=== PATIENT | female | born 1990 | race Caucasian/White ===

== ENCOUNTER → 2017-06-28 | Outpatient (CLI) | payer OTHER ==
[~2017-06-28] MED LIST: BCPILLS PO; CHOL200010 PO; CLR10 PO; MULT-506 PO; OMEG10007 PO
--- NOTE | 2017-06-28 07:51 | DIAGNOSTIC IMAGING REPORT ---
R EXTREMITY NONVASCULAR LIMITED CLINICAL HISTORY: R59.0 Lymphadenopathy, inguinal pain. Adenopathy. TECHNIQUE: Ultrasound COMPARISON STUDY: 05/05/2016 FINDINGS: Unchanging benign-appearing adenopathy of the right inguinal region. No evidence for dominant nodule. All lymph nodes have benign characteristics. IMPRESSION: Several small benign right inguinal nodes unchanged from the prior exam. The above report was generated using voice recognition software. It may contain grammatical, syntax or spelling errors. Electronically signed by: Robert Deluca M.D. 06/28/2017 7:49 AM Dictated Date/Time: 06/28/2017 7:46 AM
== END | disposition home or self-care (01) ==
LOC: C.ULTR 07:06
PROVIDERS: ATTEND Internal Medicine
DX: R59.0 Localized enlarged lymph nodes (principal); Z13.220 Encounter for screening for lipoid disorders

== ENCOUNTER 2019-09-18 07:27 | Inpatient (IN) ==
[2019-09-18] MEDS ORDERED: OXYTOCIN 30 UNITS/500 ML BAG IV PRN ×3 (09:06→22:02)
[2019-09-18] MEDS: LACTATED RINGER'S 1,000 ML IV PRN ×3 (09:29→20:50)
[2019-09-18 09:31] LABS: Hematocrit (blood only) 37.2 % (37-47); Hemoglobin 13.4 g/dL (12.0-16.0); Mean Corpuscular Hemoglobin 31.5 pg (25-34); Mean Corpuscular Volume 87.3 fL (80-100); Mean Platelet Volume 8.5 fL (7.4-10.4); Platelet Count 255 K/uL (130-400); RDW Coefficient of Variation 13.2 % (11.5-14.5); RDW Standard Deviation 42.2 fL (36.4-46.3); Red Blood Count 4.26 M/uL (4.2-5.4); White Blood Count 8.91 K/uL (4.8-10.8)
--- NOTE | 2019-09-18 09:44 | Obstetrical Progress Note ---
Date of Service September 18, 2019 Assessment & Plan Admission and Anticipated Discharge Date Admission Date: September 18, 2019 Subjective Met pt and reviewed plan Louise bulb placed with no difficulty staring low dose Pitocin pt agrees with plan Results & Data ([facility]) Vital Signs (Past 12 Hours) Vital Signs Temp Pulse Resp BP Pulse Ox 09/18/19 09:02 80 97 09/18/19 08:57 84 99 09/18/19 07:54 36.7 C 18 09/18/19 07:44 90 124/78
[2019-09-18] MEDS ORDERED: ACETAMINOPHEN SOLN 500 MG/15.62 ML UDP PO ONE (13:48)
[2019-09-18] MEDS ORDERED: ACETAMINOPHEN 500 MG TAB ONE (13:50)
[2019-09-18] MEDS ORDERED: BUTORPHANOL TARTRATE 1 MG/ML VIAL IV PRN (17:16)
[2019-09-18] MEDS ORDERED: fentaNYL 2MCG/ML ROPIV 1.25MG/ML 100 ML BAG EPI PRN (20:03)
[2019-09-18] MEDS ORDERED: fentaNYL citrate 100 MCG/2 ML VIAL ONE (20:03)
[2019-09-18] MEDS ORDERED: ONDANSETRON INJ 2 MG/ML 2 ML VIAL IV PRN (20:03)
[2019-09-18] MEDS ORDERED: NALBUPHINE HCL INJ 10 MG/ML AMP IV PRN (20:03)
[2019-09-18] MEDS ORDERED: NALOXONE HCL 0.4 MG/1 ML VIAL/CARP IV PRN (20:03)
[2019-09-18] MEDS ORDERED: DiphenhydrAMINE HCL 50 MG/ML VIAL IV PRN (20:03)
[2019-09-18] MEDS ORDERED: BUPIVACAINE 0.25% 30 ML VIAL ONE (20:03)
[2019-09-18] MEDS ORDERED: NALOXONE HCL 1 MG in SODIUM CHLORIDE 0.9% 1000ML 1,000 ML IV PRN (20:03)
[2019-09-18] MEDS ORDERED: ePHEDrine sulfate 50 MG/ML AMP ONE (20:03)
[2019-09-18] MEDS ORDERED: ePHEDrine sulfate 50 MG/ML AMP IV PRN (20:03)
[2019-09-18] MEDS ORDERED: fentaNYL 2MCG/ML ROPIV 1.25MG/ML 100 ML BAG EPI ONE (20:04)
--- NOTE | 2019-09-18 20:07 | Anesthesiology Consultation ---
Date of Service September 18, 2019 The patient's baby has Trisomy 21. Assessment & Plan Chart Review Chart Review: Patient NOT seen in Pre Admission Testing and Acceptable Risk for Labor Epidural Consults Requested none ASA ASA2 Proposed Anesthesia Anesthesia Type: Labor Epidural and CSE Risk / Benefits Reviewed With: PT / POA / Parent / Guardian, Accepts Plan and Informed Consent Obtained History Height/Weight Height: 5 ft 8 in Weight: 80.286 kg Allergies Allergy/AdvReac Type Severity Reaction Status Date / Time No Known Allergies Allergy Verified 08/17/19 15:01 Medications Home Medications Medication Instructions Recorded Confirmed Last Taken PNV cmb#95-ferrous fumarate-FA 1 tab PO DAILY 09/17/19 09/17/19 Unknown [] cetirizine [Zyrtec] 10 mg PO DAILY 09/17/19 09/17/19 Unknown Active Medications Generic Name Dose Route Start Last Admin Trade Name Freq PRN Reason Stop Dose Admin Butorphanol Tartrate 1 mg 09/18/19 17:16 09/18/19 17:36 Stadol IV 10/18/19 17:15 1 mg Q4 PRN Administration Pain Lactated Ringer's 1,000 mls @ 125 mls/hr 09/18/19 09:06 09/18/19 19:17 Lr IV 09/20/19 09:05 125 mls/hr .Q8H PRN Infusion L&D Protocol Protocol Oxytocin 30 units in 500 mls @ 2 mls/hr 09/18/19 09:09 09/18/19 19:17 Pitocin IV 10/18/19 09:08 0.12 units/hr .Q24H PRN 2 mls/hr Labor Induction/Augmentation Titration Protocol 0.12 UNITS/HR NPO Date Last Intake of Fluids: 09/18/19 Time Last Intake of Fluids: 18:00 Date Last Intake of Solids: 09/18/19 Time Last Intake of Solids: 15:00 Past Medical History Medical History Migraine Exercise / Class Metabolic Activity II 4-5 Yardwork/Stairs/Walk up hill Past Family History Family History Aunt Cancer Mother Hypertension Sister Hypertension Past Anesthesia History No Hx of Anesthesia Complications and No Family Hx of Anesthesia Complications History of PONV No Hx of PONV and No Hx of Motion Sickness Social History Smoking Status: Never smoker Hx Alcohol Use: No Hx Substance Use: No Review of Systems no chest pain or sob Physical Exam Vital Signs Last Vital Signs Temp 37.1 C 09/18/19 19:13 Pulse 74 09/18/19 19:13 Resp 18 09/18/19 19:13 BP 128/79 09/18/19 19:13 Pulse Ox 97 09/18/19 09:02 ENMT Mouth: no TMJ abnormality Thyromental Distance: > or= 3.5 Finger Breadths Mallampati Class: II Neck normal visual inspection Respiratory normal respiratory effort Auscultation: lungs clear to auscultation bilaterally Cardiovascular Rate/Rhythm: regular rate and regular rhythm Musculoskeletal Spine: normal cervical ROM Neurologic moves all extremities Psychiatric Orientation: alert and oriented x 3 Testing Laboratory Results 09/18/19 09:17
--- NOTE | 2019-09-18 21:28 | Obstetrical Progress Note ---
Date of Service September 18, 2019 Assessment & Plan Admission and Anticipated Discharge Date Admission Date: September 18, 2019 Subjective Pt doing well Epidural analgesia on board VE; 50/-2 AROM-clear will start Pitocin augmentation Results & Data ([facility]) Vital Signs (Past 12 Hours) Vital Signs Temp Pulse Resp BP Pulse Ox 09/18/19 21:25 88 98 09/18/19 21:21 86 101/62 93 09/18/19 21:20 73 96 09/18/19 21:17 75 100/57 L 09/18/19 21:15 86 96 09/18/19 21:10 93 H 96 09/18/19 21:05 74 96 09/18/19 21:04 73 103/59 L 09/18/19 21:00 83 96 09/18/19 20:55 77 97 09/18/19 20:50 80 97 09/18/19 20:49 85 18 105/55 L 09/18/19 20:45 74 18 107/55 L 98 09/18/19 20:40 77 18 107/58 L 97 09/18/19 20:35 77 97 09/18/19 20:34 91 H 99/60 L 09/18/19 20:31 81 98/57 L 09/18/19 20:30 86 97 09/18/19 20:28 92 H 18 106/63 09/18/19 20:25 87 18 104/64 98 09/18/19 20:22 78 18 124/72 09/18/19 20:11 99 H 128/91 09/18/19 19:13 37.1 C 74 18 128/79 09/18/19 18:34 76 120/69 09/18/19 17:41 78 125/82 09/18/19 16:26 68 20 123/79 09/18/19 14:45 37.3 C 70 20 128/72 09/18/19 13:52 78 18 128/72 09/18/19 11:57 36.7 C 78 18 127/81 09/18/19 11:04 75 135/84
[2019-09-19] MEDS: LACTATED RINGER'S 1,000 ML IV PRN (01:55)
[2019-09-19] MEDS ORDERED: OXYTOCIN 30 UNITS/500 ML BAG IV PRN ×2 (04:11→08:40)
[2019-09-19] MEDS: ACETAMINOPHEN 325 MG TAB PO PRN ×2 (05:23→23:00)
[2019-09-19] MEDS ORDERED: METHYLERGONOVINE MALEATE 0.2 MG/ML AMP ONE (08:30)
[2019-09-19] MEDS ORDERED: bisacodyL 10 MG SUPP PR PRN (08:40)
[2019-09-19] MEDS ORDERED: HYDROCORTISONE ACETATE 25 MG SUPP PR PRN (08:40)
[2019-09-19] MEDS ORDERED: miSOPROStoL 200 MCG TAB PR ONE (08:40)
[2019-09-19] MEDS ORDERED: BENZOCAINE 20% AER SPR 82.5 GM CAN EXT PRN (08:40)
[2019-09-19] MEDS ORDERED: DIPHTHERIA/TETANUS/PERTUSSIS 0.5 ML SYR/VIAL IM ONE (08:40)
[2019-09-19] MEDS ORDERED: ACETAMINOPHEN 325 MG TAB PO PRN (08:40)
[2019-09-19] MEDS ORDERED: METHYLERGONOVINE MALEATE 0.2 MG/ML AMP IM ONE (08:40)
--- NOTE | 2019-09-19 08:52 | Delivery Summary ---
DATE OF OPERATION: 09/19/2019 The patient delivered an demised in cephalic presentation. There was no nuchal cord. Infant was delivered. Cord was clamped and cut. This infant was known to have trisomy 18. Cord blood could not be obtained. Placenta was spontaneously delivered and sent to pathology for pathological analysis. Inspection of the perineum showed a first-degree laceration which was repaired with 2-0 Vicryl. The rest of the perineum and vaginal exam is unremarkable. All instruments were removed from the vagina and accounted for x2 including sponges, needles and retractors. Mother is doing well in recovery. I attest to the content of the Intraoperative Record and any orders documented therein. Any exceptions are noted below. MTDD
[2019-09-19] MEDS ORDERED: miSOPROStoL 200 MCG TAB ONE (11:36)
--- NOTE | 2019-09-19 12:36 | Anesthesia Procedure Note ---
Date of Service September 19, 2019 Anesthesia Post Epidural Note Vital Signs Vital Signs: Temp Pulse Resp BP Pulse Ox 99.1 F 89 20 121/75 99 09/19/19 07:30 09/19/19 12:00 09/19/19 08:49 09/19/19 12:00 09/19/19 08:20 Pain Intensity Bilateral Abdomen: Pain Intensity: 0 Notes Mental Status: alert / awake / arousable and participated in evaluation Nausea / Vomiting: adequately controlled Pain: adequately controlled Airway Patency, RR, SpO2: stable & adequate BP & HR: stable & adequate Hydration State: stable & adequate Neuraxial Anesthesia: was administered and sensory block is resolving Anesthetic Complications: no major complications apparent and Pt Satisfied with anesthetic care Epidural: Removed without complications and With tip intact
[2019-09-19] MEDS: IBUPROFEN 600 MG TAB PO PRN ×2 (16:39→20:10)
[2019-09-19] MEDS: SUPERCREAM 0.870% 15 GM JAR EXT PRN (16:39)
[2019-09-19] MEDS: CETIRIZINE HCL 10 MG TABLET PO SCH (19:19)
[2019-09-19] MEDS: DOCUSATE SODIUM 100 MG CAP PO SCH (21:14)
[2019-09-19] MEDS ORDERED: OXYCODONE/ACETAMINOPHEN 5mg/325mg TAB PO PRN (21:30)
[2019-09-20] MEDS: IBUPROFEN 600 MG TAB PO PRN ×3 (00:10→11:02)
[2019-09-20] MEDS: SUPERCREAM 0.870% 15 GM JAR EXT PRN (03:46)
[2019-09-20] MEDS: ACETAMINOPHEN 325 MG TAB PO PRN (03:46)
[2019-09-20 06:04] LABS: Hematocrit (blood only) 36.5 % (37-47); Hemoglobin 12.7 g/dL (12.0-16.0); Mean Corpuscular Hemoglobin 30.6 pg (25-34); Mean Corpuscular Hgb Conc 34.8 g/dL (32-36); Mean Platelet Volume 8.5 fL (7.4-10.4); Platelet Count 199 K/uL (130-400); RDW Coefficient of Variation 13.1 % (11.5-14.5); RDW Standard Deviation 42.4 fL (36.4-46.3); Red Blood Count 4.15 M/uL (4.2-5.4); White Blood Count 11.35 K/uL (4.8-10.8)
[2019-09-20] MEDS ORDERED: PRENATAL VITAMIN 1 TAB PO SCH (08:00)
[2019-09-20] MEDS ORDERED: FERROUS SULFATE 325 MG TAB PO SCH (08:00)
[2019-09-20] MEDS: DOCUSATE SODIUM 100 MG CAP PO SCH (08:32)
[2019-09-20] MEDS: CETIRIZINE HCL 10 MG TABLET PO SCH (08:32)
--- NOTE | 2019-09-20 09:18 | Obstetrical Progress Note ---
Date of Service September 20, 2019 Assessment & Plan Admission and Anticipated Discharge Date Admission Date: September 18, 2019 Subjective doing well out of bed tolerating diet minimal cramps in good spirits Physical Exam Constitutional: WD/WN, vitals as above comfortable Results & Data ([facility]) Vital Signs (Past 12 Hours) Vital Signs Temp Pulse Pulse Resp BP BP 09/20/19 07:13 36.9 C 90 20 117/60 09/19/19 23:02 36.5 C 63 106/64
--- NOTE | 2019-09-20 09:20 | Obstetrical Progress Note ---
Date of Service September 20, 2019 Assessment & Plan Admission and Anticipated Discharge Date Admission Date: September 18, 2019 Physical Exam Constitutional: WD/WN, vitals as above comfortable abdomen soft and non- tender Fundus firm neg edema neg Anai's for discharge home Results & Data ([facility]) Vital Signs (Past 12 Hours) Vital Signs Temp Pulse Pulse Resp BP BP 09/20/19 07:13 36.9 C 90 20 117/60 09/19/19 23:02 36.5 C 63 106/64 Laboratory Results Laboratory Results - last 72 hr 09/18/19 09/20/19 09:17 05:54 WBC 8.91 11.35 H RBC 4.26 4.15 L Hgb 13.4 12.7 Hct 37.2 36.5 L MCV 87.3 88.0 MCH 31.5 30.6 MCHC 36.0 34.8 RDW Std Deviation 42.2 42.4 RDW Coeff of Shiv 13.2 13.1 Plt Count 255 199 MPV 8.5 8.5
--- NOTE | 2019-09-20 09:52 | Anesthesiology Progress Note ---
Date of Service [facility] 2019 Asked to see patient for some back pain - had epidural for delivery of a stillborn - site clear, no bruising or swelling, she says its feel some better already - likely just sore from needle - no radicular pain or other symptoms. She seems fine with it, and I told her to let us know if it worsens or changes. Anesthesia Post Procedure Vital Signs Vital Signs: Temp Pulse Pulse Resp BP BP 09/20/19 07:13 36.9 C 90 20 117/60 09/19/19 23:02 36.5 C 63 106/64 09/19/19 19:39 37.1 C 80 20 124/71 09/19/19 15:49 37.0 C 75 20 134/82 09/19/19 12:00 37.3 C 89 18 121/75 09/19/19 10:49 92 H 136/80 09/19/19 10:34 85 122/75 09/19/19 10:20 80 131/71 09/19/19 10:04 87 136/89 09/19/19 09:49 83 124/79 Pain Intensity Bilateral Abdomen: Pain Intensity: 5 Transfer of Care Handoff Completed per policy Notes Mental Status: alert / awake / arousable Patient Amnestic to Procedure: Yes Nausea / Vomiting: adequately controlled Pain: adequately controlled Airway Patency, RR, SpO2: stable & adequate BP & HR: stable & adequate Hydration State: stable & adequate Neuraxial Anesthesia: was administered and sensory block is resolving Anesthetic Complications: no major complications apparent
[2019-09-20] MEDS ORDERED: bisacodyL 5 MG TABEC PO SCH (20:00)
--- NOTE | 2019-09-21 16:47 | Coding Query ---
CODING QUERY To promote full compliance with coding requirements relating to patient care, provider participation is requested in all cases of medical record coder uncertainty. Please assist us with the question(s) below: Coding Question(s): PLEASE LIST BELOW THE DIAGNOSIS(ES) ASSOCIATED WITH THE PATIENT'S ADMISSION AND INDUCTION OF LABOR. THANK YOU. Physician's Response(s): Diagnosis: 1. at 35+week 2. Trisomy 18 fetus 3. Polyhydramnios Thank you Cristina Shipley Principal Diagnosis: "that condition established after study, to be chiefly responsible for occasioning the admission of the patient to the hospital for care." Co-Existing Principal Diagnosis: "when two or more diagnoses equally meet the criteria for principal diagnosis as determined by the circumstances of admission, diagnostic work up, and/or therapy provided, and the Alphabetic Index, Tabular List, or another coding guideline does not provide sequencing direction, any one of the diagnoses may be sequenced first." "When the physician has documented what appears to be a current diagnosis in the body of the record, but has not included the diagnosis in the final diagnostic statement, the physician should be asked whether the diagnosis should be added." ([facility] 2 QTR90. p3-4) CAMRYN
--- NOTE | 2019-09-30 00:48 | Discharge Summary ---
CHIEF COMPLAINT: 1. at 35 weeks. 2. Trisomy 18 . 3. Polyhydramnios. HISTORY OF PRESENT ILLNESS: This is a 29-year-old G1, P0 who is , due date was 10/20/2019. was complicated by trisomy 18 fetus, which is not compatible with life. The patient's was also complicated with polyhydramnios. Decision was made to induce patient. The patient agreed to be induced at 35 weeks. She presented to labor and delivery where she underwent induction. Induction included a Louise bulb and Pitocin. She had artificial rupture of membranes on 09/18/2019 at about 2100 hours and delivered on 09/19/2019 at about 0800 hours. 's at delivery was 0, 0. The patient was discharged home on 09/20/2019 in stable condition. PAST MEDICAL HISTORY: Migraines. PAST SURGICAL HISTORY: None. SOCIAL HISTORY: The patient is , lives with spouse. Denies tobacco, drug or alcohol use. FAMILY HISTORY: Noncontributory. ALLERGIES: No known drug allergies. REVIEW OF SYSTEMS: Negative except as dictated in the HPI. PHYSICAL EXAMINATION: GENERAL: Well-developed, well-nourished white female in no acute distress. VITAL SIGNS: On 09/20/2019 showed blood pressure of 117/60, pulse of 90, respiration of 20, temperature of 36.9. HEART: S1, S2, regular rhythm and rate. LUNGS: Clear to auscultation bilaterally. ABDOMEN: Nontender, nondistended. PELVIC: Decreased lochia. OPERATION: Vaginal delivery, status post trisomy 18. DISCHARGE ____: Post vaginal delivery. PLAN ON DISCHARGE: The patient is discharged home with instructions regarding activity, diet, followup appointment, and medication.
== END 2019-09-20 11:50 | disposition home or self-care (01) | DRG 806 ==
LOC: 4S1 07:27 → 4N 09-19 23:32

== ENCOUNTER 2021-02-24 07:28 | Inpatient (IN) ==
[2021-02-24] MEDS ORDERED: OXYTOCIN 30 UNITS/500 ML BAG IV PRN (08:50)
[2021-02-24] MEDS ORDERED: miSOPROStoL 50 MCG TAB PO ONE (08:50)
[2021-02-24 09:15] LABS: Hematocrit (blood only) 37.8 % (37-47); Hemoglobin 13.3 g/dL (12.0-16.0); Mean Corpuscular Hemoglobin 31.6 pg (25-34); Mean Corpuscular Hgb Conc 35.2 g/dL (32-36); Mean Corpuscular Volume 89.8 fL (80-100); Mean Platelet Volume 8.9 fL (7.4-10.4); Platelet Count 210 K/uL (130-400); RDW Standard Deviation 42.3 fL (36.4-46.3); Red Blood Count 4.21 M/uL (4.2-5.4)
--- NOTE | 2021-02-24 10:02 | Obstetrical Progress Note ---
Date of Service February 24, 2021 Assessment & Plan Admission and Anticipated Discharge Date Admission Date: February 24, 2021 Subjective Met pt and reviewed PNC dosing well Induction for impending macrosomia Bedside sonio; Vt FHR; CAT1 CTx .Minimal VE; /-3 EFW; 7-8lbs cervidil x1 Results & Data ([facility]) Vital Signs (Past 12 Hours) Vital Signs Temp Pulse Resp BP 02/24/21 08:01 36.8 C 111 H 18 139/80 02/24/21 07:53 18 02/24/21 07:52 111 H 139/80
[2021-02-24] MEDS: ACETAMINOPHEN 500 MG TAB PO PRN ×3 (19:54→23:14)
[2021-02-24] MEDS ORDERED: DINOPROSTONE 10 MG INSERT PV ONE (20:30)
--- NOTE | 2021-02-24 21:42 | Obstetrical Progress Note ---
Date of Service February 24, 2021 Assessment & Plan Admission and Anticipated Discharge Date Admission Date: February 24, 2021 Subjective Pt doing well Received 1 dose Cytotec FHR; CAT1 Ctx 2-5mins VE; //-3 Cervidil placed in vagina Results & Data ([facility]) Vital Signs (Past 12 Hours) Vital Signs Temp Pulse Resp BP 02/24/21 21:21 75 124/74 02/24/21 19:34 36.8 C 18 02/24/21 19:33 70 122/68 02/24/21 18:50 18 02/24/21 16:36 73 123/75 02/24/21 16:34 37.0 C 18 02/24/21 11:30 70 113/67 02/24/21 11:28 18 02/24/21 10:40 18
[2021-02-24] MEDS ORDERED: BUTORPHANOL TARTRATE 1 MG/ML VIAL IV PRN (21:54)
[2021-02-25] MEDS ORDERED: ONDANSETRON INJ 2 MG/ML 2 ML VIAL IV PRN ×2 (08:27→16:52)
[2021-02-25] MEDS ORDERED: ONDANSETRON INJ 2 MG/ML 2 ML VIAL ONE (08:29)
--- NOTE | 2021-02-25 09:37 | Labor Progress Brief Note ---
Date of Service February 25, 2021 Assessment & Plan Admission and Anticipated Discharge Date Admission Date: February 24, 2021 Physical Exam Genitourinary: OB Exam Abdomen: + fundal height Manual OB Exam: + cervical dilation 1 cm and 2 cm, + cervical effacement 50% and + station high Cervidil removedWill walk and plan for Cytotec Results & Data ([facility]) Vital Signs (Past 12 Hours) Vital Signs Temp Pulse Resp BP Pulse Ox 02/25/21 08:45 36.7 C 20 02/25/21 08:41 73 119/78 02/25/21 01:26 69 96 02/25/21 01:21 64 97 02/25/21 01:16 60 97 02/25/21 01:11 68 97 02/25/21 01:06 71 97 02/25/21 01:01 79 98 02/25/21 00:56 61 96 02/25/21 00:51 62 96 02/25/21 00:46 63 96 02/25/21 00:41 66 96 02/25/21 00:36 65 96 02/25/21 00:31 66 96 02/25/21 00:26 65 96 02/25/21 00:21 62 96 02/25/21 00:16 73 96 02/25/21 00:11 61 99 02/25/21 00:06 60 98 02/25/21 00:02 60 108/57 L 02/25/21 00:01 62 99
--- NOTE | 2021-02-25 14:24 | Labor Progress Brief Note ---
Date of Service February 25, 2021 Assessment & Plan Admission and Anticipated Discharge Date Admission Date: February 24, 2021 Physical Exam Genitourinary: OB Exam Monitor Tracing: + external FHT monitor used, + external uterine monitor used, + category I and + normal FHT variability AROM with Amni-hook clear fluid Results & Data ([facility]) Vital Signs (Past 12 Hours) Vital Signs Temp Pulse Resp BP 02/25/21 14:17 77 115/72 02/25/21 11:30 36.7 C 66 20 118/74 02/25/21 08:45 36.7 C 20 02/25/21 08:41 73 119/78
[2021-02-25] MEDS: LACTATED RINGER'S 1,000 ML IV PRN ×2 (15:13→19:45)
[2021-02-25] MEDS ORDERED: fentaNYL 2MCG/ML ROPIVACAINE 1.25MG/ML 100 ML BAG EPI ONE (15:20)
[2021-02-25] MEDS ORDERED: ePHEDrine sulfate 50 MG/ML AMP ONE (15:20)
[2021-02-25] MEDS ORDERED: fentaNYL citrate 100 MCG/2 ML VIAL ONE (15:20)
[2021-02-25] MEDS ORDERED: SODIUM CHLORIDE 0.9% INJ 10 ML VIAL ONE (15:20)
[2021-02-25] MEDS ORDERED: BUPIVACAINE 0.25% 30 ML VIAL ONE (15:20)
--- NOTE | 2021-02-25 16:02 | Anesthesiology Consultation ---
Date of Service February 25, 2021 Assessment & Plan (1) Encounter for pre-operative examination: Chart Review Chart Review: Acceptable Risk for Surgery and Patient NOT seen in Pre Admission Testing Consults Requested none History Height/Weight Height: 5 ft 8 in Weight: 80.739 kg Allergies Allergy/AdvReac Type Severity Reaction Status Date / Time No Known Allergies Allergy Verified 02/24/21 07:59 Medications Home Medications Medication Instructions Recorded Confirmed Last Taken vit no.95-ferrous 1 tab PO DAILY 09/17/19 02/24/21 02/23/21 06:00 fumarate 28 mg-folic acid 800 mcg tablet () docusate sodium 100 mg capsule 100 mg PO DAILY 02/24/21 02/24/21 02/23/21 06:00 (Stool Softener) loratadine 10 mg tablet (Claritin) 10 mg PO DAILY 02/24/21 02/24/21 02/23/21 06:00 Active Medications Generic Name Dose Route Start Last Admin Trade Name Freq PRN Reason Stop Dose Admin Acetaminophen 1,000 mg 02/24/21 22:54 02/24/21 23:14 Acetaminophen 500 Mg Tab PO 03/26/21 22:53 1,000 mg Q6H PRN Administration Pain Butorphanol Tartrate 1 mg 02/24/21 21:54 02/25/21 00:10 Butorphanol Tartrate 1 Mg/Ml Vial IV 03/26/21 21:53 1 mg Q4 PRN Administration Pain Lactated Ringer's 1,000 mls @ 125 mls/hr 02/24/21 08:50 02/25/21 15:50 Lr IV 02/26/21 08:49 125 mls/hr .Q8H PRN Infusion L&D Protocol Protocol Past Medical History Medical History (Updated 02/25/21 @ 16:02 by Cristina Nice MD) Migraine Past Family History Family History Aunt Cancer Mother Hypertension Sister Hypertension Social History Smoking Status: Never smoker Hx Alcohol Use: No Hx Substance Use: No Physical Exam Vital Signs Last Vital Signs Temp 36.9 C 02/25/21 14:17 Pulse 77 02/25/21 14:17 Resp 20 02/25/21 14:17 BP 115/72 07/27/21 14:17 Pulse Ox 96 02/25/21 01:26 Testing Laboratory Results 02/24/21 08:58
[2021-02-25] MEDS ORDERED: OXYTOCIN 30 UNITS/500 ML BAG IV PRN (16:24)
[2021-02-25] MEDS ORDERED: diphenhydrAMINE 50 MG/ML VIAL IV PRN (16:52)
[2021-02-25] MEDS ORDERED: NALOXONE HCL 0.4 MG/1 ML VIAL/CARP IV PRN (16:52)
[2021-02-25] MEDS ORDERED: fentaNYL 2MCG/ML ROPIVACAINE 1.25MG/ML 100 ML BAG EPI PRN (16:52)
[2021-02-25] MEDS ORDERED: NALOXONE HCL 1 MG in SODIUM CHLORIDE 0.9% 1000ML 1,000 ML IV PRN (16:52)
[2021-02-25] MEDS ORDERED: ePHEDrine sulfate 50 MG/ML AMP IV PRN (16:52)
[2021-02-25] MEDS ORDERED: NALBUPHINE HCL INJ 10 MG/ML AMP IV PRN (16:52)
--- NOTE | 2021-02-25 18:13 | Labor Progress Brief Note ---
Date of Service February 25, 2021 Assessment & Plan Admission and Anticipated Discharge Date Admission Date: February 24, 2021 Physical Exam Genitourinary: Manual OB Exam: + cervical dilation 4 cm and 5 cm, + cervical effacement 70%, + station -1 and + amniotic fluid clear FHT Cat 1 continue Oxytocin Results & Data ([facility]) Vital Signs (Past 12 Hours) Vital Signs Temp Pulse Resp BP Pulse Ox 02/25/21 18:08 83 100 02/25/21 18:03 69 95 02/25/21 17:58 71 95 02/25/21 17:53 76 96 02/25/21 17:49 78 116/70 02/25/21 17:48 75 95 02/25/21 17:46 20 02/25/21 17:44 71 115/68 02/25/21 17:43 73 95 02/25/21 17:40 63 114/68 02/25/21 17:38 68 95 02/25/21 17:35 65 118/65 02/25/21 17:33 63 95 02/25/21 17:29 72 116/69 02/25/21 17:28 76 95 02/25/21 17:24 67 115/69 02/25/21 17:23 75 97 02/25/21 17:19 73 120/72 02/25/21 17:18 76 97 02/25/21 17:16 20 02/25/21 17:14 76 118/69 02/25/21 17:13 73 96 02/25/21 17:09 69 117/71 02/25/21 17:08 71 95 02/25/21 17:05 20 02/25/21 17:04 70 119/76 02/25/21 17:03 70 96 02/25/21 16:59 78 123/72 02/25/21 16:58 76 96 02/25/21 16:53 73 125/70 95 02/25/21 16:51 70 20 123/75 02/25/21 16:49 74 126/73 94 02/25/21 16:48 77 95 02/25/21 16:47 74 120/78 02/25/21 16:45 79 118/80 02/25/21 16:43 74 120/72 95 02/25/21 16:41 81 123/70 02/25/21 16:40 75 94 02/25/21 16:39 85 117/75 02/25/21 16:38 76 96 02/25/21 16:37 36.9 C 73 20 127/85 02/25/21 16:35 71 134/75 02/25/21 16:33 76 134/79 96 02/25/21 16:31 89 111/81 02/25/21 16:28 78 96 02/25/21 16:23 83 97 02/25/21 16:18 89 99 02/25/21 16:13 80 132/78 98 02/25/21 14:17 36.9 C 77 20 115/72 02/25/21 11:30 36.7 C 66 20 118/74 02/25/21 08:45 36.7 C 20 02/25/21 08:41 73 119/78
[2021-02-25] MEDS ORDERED: NURSING L&D Epidural Breakthrough Pain Update ONE (23:04)
[2021-02-26] MEDS ORDERED: SUPERCREAM 0.870% 15 GM JAR EXT PRN (00:11)
[2021-02-26] MEDS ORDERED: OXYTOCIN 30 UNITS/500 ML BAG IV PRN (00:11)
[2021-02-26] MEDS ORDERED: DIPHTHERIA/TETANUS/PERTUSSIS 0.5 ML SYR/VIAL IM ONE (00:11)
[2021-02-26] MEDS ORDERED: HYDROCORTISONE ACETATE 25 MG SUPP PR PRN (00:11)
[2021-02-26] MEDS ORDERED: BENZOCAINE 20% AER SPR 82.5 GM CAN EXT PRN (00:11)
[2021-02-26] MEDS ORDERED: bisacodyL 10 MG SUPP PR PRN (00:11)
--- NOTE | 2021-02-26 00:15 | Delivery Summary ---
Vaginal Delivery Summary Date of Service February 26, 2021 Vaginal Delivery Summary Delivery Note live male over intact perineum with delayed cord clamping and Apgars 9/9 weight pending. Cord blood obtained followed by spontaneous delivery of intact placenta. No tears. EBL 200 ml. Final sponge and instrument count are correct. Mom and baby stable.
[2021-02-26] MEDS: ACETAMINOPHEN 500 MG TAB PO PRN (00:17)
[2021-02-26] MEDS: IBUPROFEN 600 MG TAB PO PRN ×3 (06:46→20:51)
--- NOTE | 2021-02-26 07:52 | Obstetrical Progress Note ---
Date of Service February 26, 2021 Assessment & Plan Admission and Anticipated Discharge Date Admission Date: February 24, 2021 Subjective Patient is seen and examined. She feels well, no complaints. Ambulating without dizziness Voiding without difficulty Tolerating regular diet with out N&V Bleeding is minimal No fever/ chills/ CP/ SOB/ N&V/ Leg pain Breast feeding without problems Lab Results 02/24/21 02/24/21 02/24/21 Range/Units 07:47 07:47 08:58 WBC 8.70 (4.8-10.8) K/uL RBC 4.21 (4.2-5.4) M/uL Hgb 13.3 (12.0-16.0) g/dL Hct 37.8 (37-47) % MCV 89.8 (80-100) fL MCH 31.6 (25-34) pg MCHC 35.2 (32-36) g/dL RDW Std Deviation 42.3 (36.4-46.3) fL RDW Coeff of Shiv 13.0 (11.5-14.5) % Plt Count 210 (130-400) K/uL MPV 8.9 (7.4-10.4) fL COVID-19 [facility] SARS-CoV-2, RNA, NAAT NEGATIVE (NEGATIVE) Vital Signs Temp Pulse Pulse Resp BP BP Pulse Ox 02/26/21 05:05 62 114/73 02/26/21 02:55 36.7 C 81 20 113/72 96 02/26/21 02:12 93 H 110/75 02/26/21 01:57 90 105/75 02/26/21 01:23 75 124/67 02/26/21 01:08 70 122/68 02/26/21 00:53 73 130/73 02/26/21 00:38 73 137/83 02/26/21 00:23 76 126/68 02/26/21 00:03 91 H 100 02/26/21 00:01 91 H 92 02/25/21 23:58 80 96 02/25/21 23:55 92 H 91 02/25/21 23:53 106 H 130/85 95 02/25/21 23:48 95 H 88 L 02/25/21 23:46 95 H 81 L 02/25/21 23:43 87 95 07/27/21 23:38 77 128/74 97 02/25/21 23:33 72 95 02/25/21 23:28 73 96 02/25/21 23:24 67 115/68 02/25/21 23:23 65 96 02/25/21 23:18 67 94 02/25/21 23:13 69 93 02/25/21 23:10 36.9 C 74 18 125/65 96 02/25/21 23:08 74 125/65 96 02/25/21 23:03 76 98 02/25/21 22:58 70 96 02/25/21 22:53 70 119/66 96 02/25/21 22:48 70 96 02/25/21 22:43 67 95 02/25/21 22:38 70 117/63 96 02/25/21 22:33 67 97 02/25/21 22:28 75 96 02/25/21 22:23 68 113/61 96 02/25/21 22:18 74 95 02/25/21 22:13 66 95 02/25/21 22:08 72 103/57 L 95 02/25/21 22:03 72 95 02/25/21 21:58 69 95 02/25/21 21:53 76 91/52 L 96 02/25/21 21:48 69 93 02/25/21 21:43 81 95 02/25/21 21:38 72 110/57 L 95 02/25/21 21:33 72 96 02/25/21 21:28 78 95 02/25/21 21:23 79 106/58 L 96 02/25/21 21:20 36.9 C 02/25/21 21:18 65 95 02/25/21 21:13 78 94 02/25/21 21:09 77 105/55 L 02/25/21 21:08 77 96 02/25/21 21:03 69 96 02/25/21 20:58 70 97 02/25/21 20:54 61 109/62 02/25/21 20:53 69 98 02/25/21 20:48 75 98 02/25/21 20:43 81 97 02/25/21 20:38 72 136/57 L 97 02/25/21 20:33 68 95 02/25/21 20:28 66 96 02/25/21 20:25 69 91 02/25/21 20:24 60 141/62 H 02/25/21 20:23 67 95 02/25/21 20:18 63 94 02/25/21 20:13 61 95 02/25/21 20:08 64 117/66 94 02/25/21 20:03 64 96 02/25/21 19:58 66 95 02/25/21 19:53 72 127/75 97 PE: General: Alert, orientedx3, NAD Abd: soft, NT, fundus firm, below Umbilicus Perineum intact, Lochia rubra minimal Ext; NT, no edema AP: 30 yo s/p , ppd# 1 VSS Afebrile doing well Continue routine care All questions were answered D/C home tomorrow Results & Data ([facility]) Vital Signs (Past 12 Hours) Vital Signs Temp Pulse Pulse Resp BP BP Pulse Ox 02/26/21 05:05 62 114/73 02/26/21 02:55 36.7 C 81 20 113/72 96 02/26/21 02:12 93 H 110/75 02/26/21 01:57 90 105/75 02/26/21 01:23 75 124/67 02/26/21 01:08 70 122/68 02/26/21 00:53 73 130/73 02/26/21 00:38 73 137/83 02/26/21 00:23 76 126/68 02/26/21 00:03 91 H 100 02/26/21 00:01 91 H 92 02/25/21 23:58 80 96 02/25/21 23:55 92 H 91 02/25/21 23:53 106 H 130/85 95 02/25/21 23:48 95 H 88 L 02/25/21 23:46 95 H 81 L 02/25/21 23:43 87 95 02/25/21 23:38 77 128/74 97 02/25/21 23:33 72 95 02/25/21 23:28 73 96 02/25/21 23:24 67 115/68 02/25/21 23:23 65 96 02/25/21 23:18 67 94 02/25/21 23:13 69 93 02/25/21 23:10 36.9 C 74 18 125/65 96 02/25/21 23:08 74 125/65 96 02/25/21 23:03 76 98 02/25/21 22:58 70 96 02/25/21 22:53 70 119/66 96 02/25/21 22:48 70 96 02/25/21 22:43 67 95 02/25/21 22:38 70 117/63 96 02/25/21 22:33 67 97 02/25/21 22:28 75 96 02/25/21 22:23 68 113/61 96 02/25/21 22:18 74 95 02/25/21 22:13 66 95 02/25/21 22:08 72 103/57 L 95 02/25/21 22:03 72 95 02/25/21 21:58 69 95 02/25/21 21:53 76 91/52 L 96 02/25/21 21:48 69 93 02/25/21 21:43 81 95 02/25/21 21:38 72 110/57 L 95 02/25/21 21:33 72 96 02/25/21 21:28 78 95 02/25/21 21:23 79 106/58 L 96 02/25/21 21:20 36.9 C 02/25/21 21:18 65 95 02/25/21 21:13 78 94 02/25/21 21:09 77 105/55 L 02/25/21 21:08 77 96 02/25/21 21:03 69 96 02/25/21 20:58 70 97 02/25/21 20:54 61 109/62 02/25/21 20:53 69 98 02/25/21 20:48 75 98 02/25/21 20:43 81 97 02/25/21 20:38 72 136/57 L 97 02/25/21 20:33 68 95 02/25/21 20:28 66 96 02/25/21 20:25 69 91 02/25/21 20:24 60 141/62 H 02/25/21 20:23 67 95 02/25/21 20:18 63 94 02/25/21 20:13 61 95 02/25/21 20:08 64 117/66 94 02/25/21 20:03 64 96 02/25/21 19:58 66 95 02/25/21 19:53 72 127/75 97
[2021-02-26] MEDS ORDERED: METHYLERGONOVINE MALEATE 0.2 MG TAB PO SCH (08:00)
[2021-02-26] MEDS: FERROUS SULFATE 325 MG TAB PO SCH (08:11)
[2021-02-26] MEDS: PRENATAL VITAMIN 1 TAB PO SCH (08:11)
[2021-02-26] MEDS: DOCUSATE SODIUM 100 MG CAP PO SCH ×2 (08:11→22:54)
[2021-02-26] MEDS: LORATADINE 10 MG TAB PO SCH (08:42)
[2021-02-26] MEDS ORDERED: DOCUSATE SODIUM 100 MG CAP PO SCH (09:00)
[2021-02-26] MEDS ORDERED: NON-FORMULARY MEDICATION (Pnv Cmb#95-Ferrous Fumarate-Fa [Prenatal] 28 mg iron- 800 mcg Ta PO SCH (09:00)
[2021-02-26] MEDS ORDERED: METHYLERGONOVINE MALEATE 0.2 MG/ML AMP ONE (09:37)
[2021-02-26] MEDS ORDERED: BUTORPHANOL TARTRATE 1 MG/ML VIAL ONE (09:37)
[2021-02-26] MEDS ORDERED: BUTORPHANOL TARTRATE 1 MG/ML VIAL IV STA (09:40)
[2021-02-26] MEDS ORDERED: METHYLERGONOVINE MALEATE 0.2 MG/ML AMP IM STA (09:41)
[2021-02-26] MEDS ORDERED: OXYTOCIN 20 UNITS in LACTATED RINGER'S 1,000 ML IV SCH (10:00)
[2021-02-26] MEDS ORDERED: SODIUM CHLORIDE 0.9% 250 ML IV PRN (10:03)
--- NOTE | 2021-02-26 10:03 | Obstetrical Progress Note ---
Date of Service February 26, 2021 Assessment & Plan Admission and Anticipated Discharge Date Admission Date: February 24, 2021 Subjective I was called into the patient's room who had heavy vaginal bleeding. Patient is laying in the bed not in acute distress and feels well. IV fluid bolus is running. There was about 200 mL of blood on the pads. Fundus is firm 1 cm above the umbilicus and towards the right. Vaginal exam was done by myself emptied blood clots from vagina and lower uterine segment. Feels like there is more blood clots in the upper cavity. Bedside ultrasound is done by myself, fundus, upper uterine cavity seems empty with no signs of retained placenta. There is a blood clot in the lower uterine segment close to cervix. Verbal consent is obtained from the patient for a manual exam. Offered her IV Stadol and she accepted. After IV Stadol was given vaginal exam is repeated and empty emptied total of about 300 mL blood clots. Louise catheter was inserted and drained the bladder. Fundus is firm at the U medical level now. No more active bleeding. Pads are weight and EBL is about 530 mL. IM Methergine, IV Pitocin started. We will continue with IV Pitocin and obtain labs, CBC, PT/INR, fibrinogen and type and cross 2 units of blood. Continue to monitor closely. Results & Data ([facility]) Vital Signs (Past 12 Hours) Vital Signs Temp Pulse Pulse Resp BP BP Pulse Ox 02/26/21 08:00 36.8 C 65 16 120/82 99 02/26/21 05:05 62 114/73 02/26/21 02:55 36.7 C 81 20 113/72 96 02/26/21 02:12 93 H 110/75 02/26/21 01:57 90 105/75 02/26/21 01:23 75 124/67 02/26/21 01:08 70 122/68 02/26/21 00:53 73 130/73 02/26/21 00:38 73 137/83 02/26/21 00:23 76 126/68 02/26/21 00:03 91 H 100 02/26/21 00:01 91 H 92 02/25/21 23:58 80 96 02/25/21 23:55 92 H 91 02/25/21 23:53 106 H 130/85 95 02/25/21 23:48 95 H 88 L 02/25/21 23:46 95 H 81 L 02/25/21 23:43 87 95 02/25/21 23:38 77 128/74 97 02/25/21 23:33 72 95 02/25/21 23:28 73 96 02/25/21 23:24 67 115/68 02/25/21 23:23 65 96 02/25/21 23:18 67 94 02/25/21 23:13 69 93 02/25/21 23:10 36.9 C 74 18 125/65 96 02/25/21 23:08 74 125/65 96 02/25/21 23:03 76 98 02/25/21 22:58 70 96 02/25/21 22:53 70 119/66 96 02/25/21 22:48 70 96 02/25/21 22:43 67 95 02/25/21 22:38 70 117/63 96 02/25/21 22:33 67 97 02/25/21 22:28 75 96 02/25/21 22:23 68 113/61 96 02/25/21 22:18 74 95 02/25/21 22:13 66 95 02/25/21 22:08 72 103/57 L 95 02/25/21 22:03 72 95 02/25/21 21:58 69 95
[2021-02-26 10:17] LABS: Basophils # (auto) 0.01 K/uL (0-0.2); Basophils % (auto) 0.1 %; Eosinophils # (auto) 0.07 K/uL (0-0.5); Eosinophils % (auto) 0.6 %; Hematocrit (blood only) 31.8 % (37-47); Hemoglobin 11.1 g/dL (12.0-16.0); Immature Granulocytes # (auto) 0.02 K/uL (0.00-0.02); Immature Granulocytes % (auto) 0.2 %; Lymphocytes % (auto) 17.5 %; Mean Corpuscular Hemoglobin 31.4 pg (25-34); Mean Corpuscular Volume 89.8 fL (80-100); Mean Platelet Volume 8.8 fL (7.4-10.4); Monocytes # (auto) 0.55 K/uL (0.11-0.59); Monocytes % (auto) 4.4 %; Neutrophils # (auto) 9.71 K/uL (1.4-6.5); Neutrophils % (auto) 77.2 %; Platelet Count 189 K/uL (130-400); RDW Coefficient of Variation 12.9 % (11.5-14.5); RDW Standard Deviation 42.3 fL (36.4-46.3); Red Blood Count 3.54 M/uL (4.2-5.4); White Blood Count 12.56 K/uL (4.8-10.8)
[2021-02-26 10:28] LABS: Fibrinogen 403 mg/dl (184-400); INR 0.9 (0.9-1.1); Partial Thromboplastin Ratio 1.2; Partial Thromboplastin Time 30.5 Seconds (21.0-31.0); Prothrombin Time 9.5 Seconds (9.0-12.0)
[2021-02-26 10:39] LABS: Mean Corpuscular Hgb Conc 34.9 g/dL (32-36)
[2021-02-26] MEDS: ceFAZolin 2000MG 2,000 MG/15 ML SYR IV SCH ×2 (10:44→17:52)
[2021-02-26] MEDS ORDERED: Nursing to Pharmacy Communication SCH (11:15)
--- NOTE | 2021-02-26 11:48 | Anesthesiology Progress Note ---
Date of Service February 26, 2021 Anesthesia Post Procedure Vital Signs Vital Signs: Temp Pulse Pulse Resp BP BP Pulse Ox 02/26/21 08:00 36.8 C 65 16 120/82 99 02/26/21 05:05 62 114/73 02/26/21 02:55 36.7 C 81 20 113/72 96 02/26/21 02:12 93 H 110/75 02/26/21 01:57 90 105/75 02/26/21 01:23 75 124/67 02/26/21 01:08 70 122/68 02/26/21 00:53 73 130/73 02/26/21 00:38 73 137/83 02/26/21 00:23 76 126/68 02/26/21 00:03 91 H 100 02/26/21 00:01 91 H 92 02/25/21 23:58 80 96 02/25/21 23:55 92 H 91 02/25/21 23:53 106 H 130/85 95 02/25/21 23:48 95 H 88 L 02/25/21 23:46 95 H 81 L 02/25/21 23:43 87 95 02/25/21 23:38 77 128/74 97 02/25/21 23:33 72 95 02/25/21 23:28 73 96 02/25/21 23:24 67 115/68 02/25/21 23:23 65 96 02/25/21 23:18 67 94 02/25/21 23:13 69 93 02/25/21 23:10 36.9 C 74 18 125/65 96 02/25/21 23:08 74 125/65 96 02/25/21 23:03 76 98 02/25/21 22:58 70 96 02/25/21 22:53 70 119/66 96 02/25/21 22:48 70 96 02/25/21 22:43 67 95 02/25/21 22:38 70 117/63 96 02/25/21 22:33 67 97 02/25/21 22:28 75 96 02/25/21 22:23 68 113/61 96 02/25/21 22:18 74 95 02/25/21 22:13 66 95 02/25/21 22:08 72 103/57 L 95 02/25/21 22:03 72 95 02/25/21 21:58 69 95 02/25/21 21:53 76 91/52 L 96 02/25/21 21:48 69 93 02/25/21 21:43 81 95 02/25/21 21:38 72 110/57 L 95 02/25/21 21:33 72 96 02/25/21 21:28 78 95 02/25/21 21:23 79 106/58 L 96 02/25/21 21:20 36.9 C 02/25/21 21:18 65 95 02/25/21 21:13 78 94 02/25/21 21:09 77 105/55 L 02/25/21 21:08 77 96 02/25/21 21:03 69 96 02/25/21 20:58 70 97 02/25/21 20:54 61 109/62 02/25/21 20:53 69 98 02/25/21 20:48 75 98 02/25/21 20:43 81 97 02/25/21 20:38 72 136/57 L 97 02/25/21 20:33 68 95 02/25/21 20:28 66 96 02/25/21 20:25 69 91 02/25/21 20:24 60 141/62 H 02/25/21 20:23 67 95 02/25/21 20:18 63 94 02/25/21 20:13 61 95 02/25/21 20:08 64 117/66 94 02/25/21 20:03 64 96 02/25/21 19:58 66 95 02/25/21 19:53 72 127/75 97 02/25/21 19:48 66 96 02/25/21 19:43 62 97 02/25/21 19:38 63 111/74 96 02/25/21 19:33 72 97 02/25/21 19:28 67 97 02/25/21 19:24 68 92 02/25/21 19:23 67 114/70 96 02/25/21 19:18 74 96 02/25/21 19:14 36.9 C 20 02/25/21 19:13 66 96 02/25/21 19:08 68 117/78 97 02/25/21 19:04 81 91 02/25/21 19:03 80 92 02/25/21 18:58 70 96 02/25/21 18:53 76 106/60 96 02/25/21 18:48 80 96 02/25/21 18:46 20 02/25/21 18:45 71 92 02/25/21 18:43 36.9 C 74 20 97 02/25/21 18:38 71 107/63 97 02/25/21 18:33 73 98 02/25/21 18:28 66 94 02/25/21 18:24 65 108/64 02/25/21 18:23 67 96 02/25/21 18:18 66 96 02/25/21 18:16 20 02/25/21 18:13 65 98 02/25/21 18:08 83 100 02/25/21 18:03 69 95 02/25/21 18:01 20 02/25/21 17:58 71 95 02/25/21 17:53 76 96 02/25/21 17:49 78 116/70 02/25/21 17:48 75 95 02/25/21 17:46 20 02/25/21 17:44 71 115/68 02/25/21 17:43 73 95 02/25/21 17:40 63 114/68 02/25/21 17:38 68 95 02/25/21 17:35 65 118/65 02/25/21 17:33 63 95 02/25/21 17:29 72 116/69 02/25/21 17:28 76 95 02/25/21 17:24 67 115/69 02/25/21 17:23 75 97 02/25/21 17:19 73 120/72 02/25/21 17:18 76 97 02/25/21 17:16 20 02/25/21 17:14 76 118/69 02/25/21 17:13 73 96 02/25/21 17:09 69 117/71 02/25/21 17:08 71 95 02/25/21 17:05 20 02/25/21 17:04 70 119/76 02/25/21 17:03 70 96 02/25/21 16:59 78 123/72 02/25/21 16:58 76 96 02/25/21 16:53 73 125/70 95 02/25/21 16:51 70 20 123/75 02/25/21 16:49 74 126/73 94 02/25/21 16:48 77 95 02/25/21 16:47 74 120/78 02/25/21 16:45 79 118/80 02/25/21 16:43 74 120/72 95 02/25/21 16:41 81 123/70 02/25/21 16:40 75 94 02/25/21 16:39 85 117/75 02/25/21 16:38 76 96 02/25/21 16:37 36.9 C 73 20 127/85 02/25/21 16:35 71 134/75 02/25/21 16:33 76 134/79 96 02/25/21 16:31 89 111/81 02/25/21 16:28 78 96 02/25/21 16:23 83 97 02/25/21 16:18 89 99 02/25/21 16:13 80 132/78 98 02/25/21 14:17 36.9 C 77 20 115/72 Pain Intensity Bilateral Abdomen: Pain Intensity: 3 Lower Back: Pain Intensity: 3 Transfer of Care Handoff Completed per policy Notes Mental Status: alert / awake / arousable and participated in evaluation Patient Amnestic to Procedure: Yes Nausea / Vomiting: adequately controlled Pain: adequately controlled Airway Patency, RR, SpO2: stable & adequate BP & HR: stable & adequate Hydration State: stable & adequate Anesthetic Complications: no major complications apparent and Pt Satisfied with anesthetic care
[2021-02-26] MEDS: METHYLERGONOVINE MALEATE 0.2 MG TAB PO SCH ×3 (13:46→22:54)
[2021-02-26 13:54] LABS: Hematocrit (blood only) 34.7 % (37-47)
--- NOTE | 2021-02-26 16:09 | Obstetrical Progress Note ---
Date of Service February 26, 2021 Assessment & Plan Admission and Anticipated Discharge Date Admission Date: February 24, 2021 Subjective Patient is reevaluated She feels well, just tired from not sleeping No more VB LociA had been scant VSS Afebrile UOP good Lab Results 02/24/21 02/24/21 02/24/21 Range/Units 07:47 07:47 08:58 WBC 8.70 (4.8-10.8) K/uL RBC 4.21 (4.2-5.4) M/uL Hgb 13.3 (12.0-16.0) g/dL Hct 37.8 (37-47) % MCV 89.8 (80-100) fL MCH 31.6 (25-34) pg MCHC 35.2 (32-36) g/dL RDW Std Deviation 42.3 (36.4-46.3) fL RDW Coeff of Shiv 13.0 (11.5-14.5) % Plt Count 210 (130-400) K/uL MPV 8.9 (7.4-10.4) fL Immature Gran % (Auto) % Neut % (Auto) % Lymph % (Auto) % Stafford % (Auto) % Eos % (Auto) % Baso % (Auto) % Neut # (Auto) (1.4-6.5) K/uL Lymph # (Auto) (1.2-3.4) K/uL Stafford # (Auto) (0.11-0.59) K/uL Eos # (Auto) (0-0.5) K/uL Baso # (Auto) (0-0.2) K/uL Immature Gran # (Auto) (0.00-0.02) K/uL PT (9.0-12.0) Seconds INR (0.9-1.1) APTT (21.0-31.0) Seconds PTT Ratio Fibrinogen (184-400) mg/dl COVID-19 Eval [facility] SARS-CoV-2, RNA, NAAT NEGATIVE (NEGATIVE) Blood Type Antibody Screen Crossmatch 02/26/21 02/26/21 02/26/21 Range/Units 10:05 10:05 10:05 WBC 12.56 H (4.8-10.8) K/uL RBC 3.54 L (4.2-5.4) M/uL Hgb 11.1 L (12.0-16.0) g/dL Hct 31.8 L (37-47) % MCV 89.8 (80-100) fL MCH 31.4 (25-34) pg MCHC 34.9 (32-36) g/dL RDW Std Deviation 42.3 (36.4-46.3) fL RDW Coeff of Shiv 12.9 (11.5-14.5) % Plt Count 189 (130-400) K/uL MPV 8.8 (7.4-10.4) fL Immature Gran % (Auto) 0.2 % Neut % (Auto) 77.2 % Lymph % (Auto) 17.5 % Stafford % (Auto) 4.4 % Eos % (Auto) 0.6 % Baso % (Auto) 0.1 % Neut # (Auto) 9.71 H (1.4-6.5) K/uL Lymph # (Auto) 2.20 (1.2-3.4) K/uL Stafford # (Auto) 0.55 (0.11-0.59) K/uL Eos # (Auto) 0.07 (0-0.5) K/uL Baso # (Auto) 0.01 (0-0.2) K/uL Immature Gran # (Auto) 0.02 (0.00-0.02) K/uL PT 9.5 (9.0-12.0) Seconds INR 0.9 (0.9-1.1) APTT 30.5 (21.0-31.0) Seconds PTT Ratio 1.2 Fibrinogen 403 H (184-400) mg/dl COVID-19 Eval Order SARS-CoV-2, RNA, NAAT (NEGATIVE) Blood Type A Positive Antibody Screen NEGATIVE Crossmatch See Detail 02/26/21 Range/Units 13:40 WBC (4.8-10.8) K/uL RBC (4.2-5.4) M/uL Hgb 12.0 (12.0-16.0) g/dL Hct 34.7 L (37-47) % MCV (80-100) fL MCH (25-34) pg MCHC (32-36) g/dL RDW Std Deviation (36.4-46.3) fL RDW Coeff of Shiv (11.5-14.5) % Plt Count (130-400) K/uL MPV (7.4-10.4) fL Immature Gran % (Auto) % Neut % (Auto) % Lymph % (Auto) % Stafford % (Auto) % Eos % (Auto) % Baso % (Auto) % Neut # (Auto) (1.4-6.5) K/uL Lymph # (Auto) (1.2-3.4) K/uL Stafford # (Auto) (0.11-0.59) K/uL Eos # (Auto) (0-0.5) K/uL Baso # (Auto) (0-0.2) K/uL Immature Gran # (Auto) (0.00-0.02) K/uL PT (9.0-12.0) Seconds INR (0.9-1.1) APTT (21.0-31.0) Seconds PTT Ratio Fibrinogen (184-400) mg/dl COVID-19 Eval Order SARS-CoV-2, RNA, NAAT (NEGATIVE) Blood Type Antibody Screen Crossmatch AP: 30 yo s/p , pp hemorrhage this morning with uterine atony, responded to emptying cloths and medical tehrapy VSS Afebrile, doing well H&H stable, even better than before?, called lab to repeat last draw as CBC Continue to monitor closely Results & Data ([facility]) Vital Signs (Past 12 Hours) Vital Signs Temp Pulse Pulse Resp BP Pulse Ox 02/26/21 14:50 37.0 C 81 18 112/74 97 02/26/21 13:00 79 16 125/83 99 02/26/21 11:10 36.8 C 72 16 117/79 97 02/26/21 08:00 36.8 C 65 16 120/82 99 02/26/21 05:05 62 114/73
[2021-02-26 16:15] LABS: Basophils # (auto) 0.02 K/uL (0-0.2); Basophils % (auto) 0.1 %; Eosinophils # (auto) 0.11 K/uL (0-0.5); Eosinophils % (auto) 0.8 %; Hematocrit (blood only) 34.4 % (37-47); Immature Granulocytes # (auto) 0.04 K/uL (0.00-0.02); Immature Granulocytes % (auto) 0.3 %; Lymphocytes # (auto) 2.25 K/uL (1.2-3.4); Lymphocytes % (auto) 16.8 %; Mean Corpuscular Hemoglobin 31.7 pg (25-34); Mean Corpuscular Hgb Conc 34.9 g/dL (32-36); Mean Corpuscular Volume 90.8 fL (80-100); Mean Platelet Volume 9.4 fL (7.4-10.4); Monocytes # (auto) 0.61 K/uL (0.11-0.59); Monocytes % (auto) 4.5 %; Neutrophils # (auto) 10.38 K/uL (1.4-6.5); Neutrophils % (auto) 77.5 %; Platelet Count 209 K/uL (130-400); RDW Coefficient of Variation 13.1 % (11.5-14.5); Red Blood Count 3.79 M/uL (4.2-5.4); White Blood Count 13.41 K/uL (4.8-10.8)
[2021-02-26] MEDS: ACETAMINOPHEN 325 MG TAB PO PRN (22:58)
[2021-02-27] MEDS: METHYLERGONOVINE MALEATE 0.2 MG TAB PO SCH ×5 (01:33→18:08)
[2021-02-27] MEDS: ceFAZolin 2000MG 2,000 MG/15 ML SYR IV SCH (01:33)
[2021-02-27] MEDS: IBUPROFEN 600 MG TAB PO PRN ×3 (05:35→19:24)
[2021-02-27 06:57] LABS: Hematocrit (blood only) 29.7 % (37-47); Hemoglobin 10.2 g/dL (12.0-16.0); Mean Corpuscular Hemoglobin 31.1 pg (25-34); Mean Corpuscular Hgb Conc 34.3 g/dL (32-36); Mean Corpuscular Volume 90.5 fL (80-100); Mean Platelet Volume 8.8 fL (7.4-10.4); Platelet Count 189 K/uL (130-400); RDW Coefficient of Variation 13.2 % (11.5-14.5); RDW Standard Deviation 43.3 fL (36.4-46.3); Red Blood Count 3.28 M/uL (4.2-5.4); White Blood Count 11.75 K/uL (4.8-10.8)
[2021-02-27] MEDS: FERROUS SULFATE 325 MG TAB PO SCH (08:04)
[2021-02-27] MEDS: ACETAMINOPHEN 325 MG TAB PO PRN (08:04)
[2021-02-27] MEDS: LORATADINE 10 MG TAB PO SCH (08:04)
[2021-02-27] MEDS: DOCUSATE SODIUM 100 MG CAP PO SCH (08:04)
[2021-02-27] MEDS: PRENATAL VITAMIN 1 TAB PO SCH (08:04)
--- NOTE | 2021-02-27 11:20 | Obstetrical Progress Note ---
Date of Service February 27, 2021 Assessment & Plan (1) Term delivered: plan to d/c Morgan repeat H/H at 1800 tent d/c tonight if feeling OK and count stable Subjective Ambulation: ambulating normally Voiding: morgan catheter in place Passing Gas:: Yes Diet Tolerance:: regular diet Lochia:: Small Feeding Type:: breast feeding Current Pain Level(1-10): 0 feels better minimal bleeding per patient now Physical Exam Constitutional WD/WN, vitals as above comfortable Respiratory normal respiratory effort, lungs clear to auscultation Gastrointestinal (Abdomen) Inspection/Auscultation: abdomen normal to inspection abdomen soft and non-tender fundus firm no edema neg Anai's Neurologic patellar DTR's 2+ bilat, sensation intact Results & Data ([facility]) Vital Signs (Past 12 Hours) Vital Signs Temp Pulse Pulse Resp BP Pulse Ox 02/27/21 07:43 36.9 C 76 18 120/79 97 02/26/21 23:19 36.8 C 68 16 102/69 97
[2021-02-27 18:09] LABS: Hemoglobin 10.9 g/dL (12.0-16.0)
[2021-02-27] MEDS ORDERED: bisacodyL 5 MG TABEC PO SCH (20:00)
== END 2021-02-27 20:00 | disposition home or self-care (01) | DRG 807 ==
LOC: 4S1 07:28 → 4S2 02-26 02:45

== ENCOUNTER 2023-06-23 14:30 | Inpatient (IN) ==
[2023-06-23] MEDS ORDERED: OXYTOCIN 30 UNITS/NSS 30 UNITS/500 ML BAG IV PRN ×2 (17:28→22:54)
[2023-06-23] MEDS ORDERED: LIDOCAINE 1% LOCAL 20 ML VIAL INFIL PRN (17:28)
--- NOTE | 2023-06-23 17:30 | Obstetrical Progress Note ---
Date of Service June 23, 2023 Assessment & Plan (1) : Plan: Pt admitted for labor FHR; CAT1 Ctx 2-4mins VE 4cm admit and anticipate VD Results & Data Vital Signs (Past 12 Hours) Vital Signs Temp Pulse Resp BP 06/23/23 14:50 86 127/76 06/23/23 14:38 37.0 C 86 16 127/76
[2023-06-23] MEDS: LACTATED RINGER'S 1,000 ML IV PRN ×3 (17:54→23:58)
[2023-06-23 18:22] LABS: Hemoglobin 13.2 g/dl (12.0-16.0); Mean Corpuscular Hgb Conc 35.7 g/dL (32.0-36.0); Mean Corpuscular Volume 89.6 fL (80.0-100.0); Mean Platelet Volume 8.9 fL (9.4-12.4); Platelet Count 230 K/uL (130-400); RDW Coefficient of Variation 12.4 % (11.5-14.5); Red Blood Count 4.13 M/uL (4.20-5.40); White Blood Count 11.92 K/ul (4.8-10.8)
[2023-06-23] MEDS ORDERED: fentaNYL citrate PF 100 MCG/2 ML VIAL ONE (18:47)
[2023-06-23] MEDS ORDERED: ePHEDrine sulfate 50 MG/ML AMP ONE (18:47)
[2023-06-23] MEDS ORDERED: LIDOCAINE 2%/EPINEPHRINE 1:200,000 20 ML PF ONE (18:48)
[2023-06-23] MEDS ORDERED: BUPIVACAINE 0.25% PF 30 ML VIAL ONE (18:48)
[2023-06-23] MEDS ORDERED: fentANYL 2 MCG/ML BUPIVacaine 0.125%-NSS 100ML BAG ONE (18:48)
[2023-06-23] MEDS ORDERED: SODIUM CHLORIDE 0.9% PF INJ 10 ML VIAL ONE (18:48)
[2023-06-23] MEDS ORDERED: NALOXONE HCL 1 MG in SODIUM CHLORIDE 0.9% 1,000 ML IV PRN (19:22)
[2023-06-23] MEDS ORDERED: fentANYL 2 MCG/ML BUPIVacaine 0.125%-NSS 100ML BAG EPI PRN (19:22)
[2023-06-23] MEDS ORDERED: fentaNYL citrate PF 100 MCG/2 ML VIAL EPI PRN (19:22)
[2023-06-23] MEDS ORDERED: BUPIVACAINE 0.25% PF 30 ML VIAL EPI STA (19:22)
[2023-06-23] MEDS ORDERED: LIDOCAINE 2%/EPINEPHRINE 1:200,000 20 ML PF EPI STA (19:22)
[2023-06-23] MEDS ORDERED: BUPIVACAINE 0.25% PF 30 ML VIAL EPI PRN (19:22)
[2023-06-23] MEDS ORDERED: LIDOCAINE 2% MPF LOCAL 5 ML VIAL EPI PRN (19:22)
[2023-06-23] MEDS ORDERED: ePHEDrine sulfate 50 MG/ML AMP IV PRN (19:22)
[2023-06-23] MEDS ORDERED: fentaNYL citrate PF 100 MCG/2 ML VIAL EPI STA (19:22)
[2023-06-23] MEDS ORDERED: ROPIVACAINE 0.5% PF 5 MG/ML 20 ML VIAL EPI PRN (19:22)
[2023-06-23] MEDS ORDERED: diphenhydrAMINE 50 MG/ML VIAL IV PRN (19:22)
[2023-06-23] MEDS ORDERED: SODIUM CHLORIDE 0.9% PF INJ 10 ML VIAL EPI STA (19:22)
[2023-06-23] MEDS ORDERED: NALOXONE HCL 0.4 MG/1 ML VIAL/CARP IV PRN (19:22)
[2023-06-23] MEDS ORDERED: NALBUPHINE HCL 5 MG in SYRINGE 0 ML IV PRN (19:22)
[2023-06-23] MEDS ORDERED: SODIUM CHLORIDE 0.9% PF INJ 10 ML VIAL EPI PRN (19:22)
--- NOTE | 2023-06-23 19:22 | Anesthesiology Consultation ---
Date of Service June 23, 2023 Assessment & Plan (1) Encounter for pre-operative examination: Chart Review Chart Review: Patient NOT seen in Pre Admission Testing and Acceptable Risk for Labor Epidural Consults Requested none History Height/Weight Height: 5 ft 8 in Weight: 83.007 kg Allergies Allergy/AdvReac Type Severity Reaction Status Date / Time No Known Allergies Allergy Verified 06/23/23 16:34 Medications Home Medications Medication Instructions Recorded Confirmed Last Taken vit no.95-ferrous 1 tab PO DAILY 09/17/19 02/24/21 02/23/21 06:00 fumarate 28 mg-folic acid 800 mcg tablet () Active Medications Generic Name Dose Route Start Last Admin Trade Name Freq PRN Reason Stop Dose Admin Lactated Ringer's 1,000 mls @ 125 mls/hr 06/23/23 17:28 06/23/23 19:21 Lr IV 06/25/23 17:27 125 mls/hr .Q8H PRN Infusion L&D Protocol Protocol Past Medical History Medical History Migraine Past Family History Family History Aunt Cancer Mother Hypertension Sister Hypertension Social History Smoking Status: Never smoker Do You Dip or Chew Tobacco: No Hx Alcohol Use: No Hx Substance Use: No Physical Exam Vital Signs Last Vital Signs Temp 98.4 F 06/23/23 19:15 Pulse 84 06/23/23 19:16 Resp 18 06/23/23 19:15 BP 118/67 06/23/23 19:09 Pulse Ox 99 06/23/23 19:16 O2 Del Method Room Air 06/23/23 19:12 Testing Laboratory Results 06/23/23 18:07
--- OUTSIDE RECORDS SUMMARY | 2023-06-23 20:13 | External Medical Summary | Summary of Care ---
Author Name Unknown Organization [facility] Address [address] [place] [address] Phone [phone] Care Team Providers Care Switchman Supervisor Name Role Phone Bernardo Cardozoclaudia Primary Care Provider Encounter Details Date Type Department Care Team Description 05/18/2023 Telephone Gynecology/Obstetrics Ben Sauceda [address] [place] [address] Aysha Patel CRNP [address] [facility] [place] [address] Allergies No known active allergiesdocumented as of this encounter (statuses as of 05/19/2023) Medications Medication Sig Dispensed Refills Start Date End Date Status 1 30-0.975-200 MG Oral Capsule Take 1 Cap by mouth daily. 0 Active ZyrTEC Allergy 10 MG Oral Capsule (Cetirizine HCl) Take 1 Capsule by mouth in the morning. 0 Active Ventolin HFA 108 (90 Base) MCG/ACT Inhalation Aerosol Solution Inhale 2 Puffs by mouth every 4 hours as needed for Wheezing. Ok to sub generic 36 g 3 08/14/2022 Active Albuterol Sulfate 1.25 MG/3ML Inhalation Nebulization SolutionIndications :Mild intermittent asthma with exacerbation Inhale 1.25 mg via nebulizer every 4 hours as needed for Wheezing or Shortness of Breath. 24 mL 11 08/19/2022 Active Compressor NebulizerIndication s:Mild intermittent asthma with exacerbation Inhale via nebulizer. Use as directed. 1 Each 1 08/19/2022 Active Doxylamine Succinate (Sleep) 25 MG Oral Tablet (Unisom) Take 1 Tablet by mouth at bedtime as needed. 0 Active B-6 100 MG Oral Tablet Take by mouth. 0 Active Ondansetron HCl 8 MG Oral Tablet Take 1 Tablet by mouth every 8 hours as needed for Nausea. 30 Tablet 2 11/25/2022 Active Additional Information Patient not taking.Reported on 02/09/2023 Kaymsehsqw-IBWP-Tvh feine 50-300-40 MG Oral Capsule (Fioricet)Indicatio ns:H/O migraine during Take 1 Capsule by mouth every 4 hours as needed for Headache. 30 Capsule 1 12/29/2022 Active B-2-400 400 MG Oral Capsule (Riboflavin) Take 1 Capsule by mouth in the morning. 0 Active Magnesium Oxide 400 (240 Mg) MG Oral Tablet Take 1 Tablet by mouth in the morning. 0 Active CoQ10 200 MG Oral Capsule Take by mouth. 0 Active documented as of this encounter (statuses as of 05/19/2023) Active Problems Problem Noted Date Normal 11/12/2022 History of hemorrhage, curren tly 11/12/2022 Family history of trisomy 18 10/11/2020 Overview: First Baby, delivered at 35w4d. 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 Last Assessment & Plan: Known severe polyhydramnios with today's PAUL: 35.4 cm. With pt's complaints of regular painful contractions and occasional shortness of breath, amnioreduction was offered and she opted for it. Please see below for the procedure note. Post procedure PAUL was 16.1cm. Trisomy 18 of fetus in current 019 02/04/2021 Overview: Confirmed via amnio. Desires palliative care for baby. Last Assessment & Plan: Patient had Multidisciplinary consultation today. See above for detailed report. 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) 05/11/2023 Covid-19, Mrna, Lnp-s, Pf, B ivalent, 30 Mcg, IM, 12 yrs and above ([employer]) 05/19/2022 PPD 07/18/2019 SEASONAL INFLUENZA, PF, 6 M & Above, IM , (FLULAVAL or FLUZONE) 05/06/2023,05/11/2022,04/22/2021 Seasonal Influenza, Quadriva lent, No Preserve, IM 05/06/2020,05/15/2019,05/20/2018 TDAP (age 10 and older)([employer]) 04/12/2023,05/2021 documented as of this encounter Social History Tobacco Use Types Packs/Day Years Used Date Smoking Tobacco: Never Smokeless Tobacco: Never Alcohol Use Standard Drinks/Week Comments Not Currently 0 (1 standard drink = 0.6 oz pur e alcohol) ocas Alcohol Habits Answer Date Recorded How often do you have a drink containing alcohol ? Monthly or less 10/28/2018 How many drinks containing a lcohol do you have on a typical day when you are drinking? Not asked How often do you have six or more drinks on one occasion? Not asked Food Insecurity Answer Date Recorded Within the past 12 months, y ou worried that your food would run out before you got money to buy more. Never true 11/12/2022 Within the past 12 months, t he food you bought just didn't last and you didn't have money to get more. Never true 11/12/2022 Estimated Date of Delivery Comme nts Yes 06/23/2023 Based on last me nstrual period of 09/16/2022 Sex Assigned at Date Recorded Female 04/18/2020 9:54 AM E DT Job Start Date Occupation Industry Not on file Not on file Not on file documented as of this encounter Miscellaneous Notes * Addendum Note - Phoebe Jarvis LPN - 05/19/2023 10:06 AM EDTAddended by: PHOEBE JARVIS on: 05/19/2023 10:06 AM Modules accepted: Orders * Telephone Encounter - Phoebe Jarvis LPN - 05/19/2023 10:05 AM EDT Spoke with [facility] Herminia ruby. Provided Code 12694 for Abrysvo vaccine PA. She contacted Medical Management and they advised that no PA is required. She was checking with another department to verify and then will call back. * Telephone Encounter - Phoebe Jarvis LPN - 05/18/2023 3:52 PM EDT Notified patient that we have tried to do PA with [facility] insurance and they are not able to do PA due to it not being on their list of medications yet to do the PA. She is going to contact her insuranceand maybe talk to the pharmacy to see what possible OOP cost would be. * Telephone Encounter - Sary R Marker-Shotzberger, C ENGINEER - 05/18/2023 3:43 PM EDT Phone call from pt. Pt calling in stating she spoke with her Pharmacy ( [facility] [place]) about theRSV vaccine. She states was advised to call office to inform that they are sending over the start of the prior auth for this to be covered. Pt is seen in [facility] office - had him send to [facility]. Pt currently 34 weeks 6 days . Sary Garcia LPN 05/18/2023 3:45 PM documented in this encounter Plan of Treatment Upcoming Encounters Date Type Specialty Care Team Description 05/24/2023 Office Visit Gynecology Obstetrics Susie Borden, REYES [address] [place] [phone] 05/31/2023 Office Visit Gynecology Obstetrics Amy Storm PA-C [address] [id number] 06/07/2023 Office Visit Gynecology Obstetrics Amy Storm PA-C [address] [place] [id number] 06/14/2023 Office Visit Gynecology Obstetrics Nevin Irizarry PA-C [address] [place] [id number] 06/21/2023 Office Visit Gynecology Obstetrics Nevin Irizarry PA-C [address] [id number] Health Maintenance Due Date Last Done Comments Hepatitis B (1 of 3 - 3-dose series) 1990 Pneumococcal Vaccine: Pediatrics (0 to 5 Years) and At-Risk Patients (6 to 64 Years) (1 - PCV) 1996 Depression Screening 02/29/2020 02/28/2019 Pap Smear 11/12/2025 11/12/2022, 10/28/2018 Cervical Cancer Screening 11/13/2027 HPV/Co-Test 11/13/2027 11/12/2022 DTaP,Tdap,and Td Vaccines (3 - Td or Tdap) 04/12/2033 04/12/2023, 12/09/2020 Influenza Vaccine (FLU shot) Completed 11/2022, 05/11/2022, 04/22/2021, Additional history exists COVID-19 Vaccine Completed 05/11/2023, , 11/01/2020, Additional history exists GARDASIL-HPV IMMUNIZATION SERIES Aged Out No longer eligible based on patient's age to complete this topic MENINGOCOCCAL (MENACTRA/MENVEO) Aged Out No longer eligible based on patient's age to complete this topic documented as of this encounter Medical Devices Not on filedocumented as of this encounter Care Teams Switchman Supervisor Relationship Specialty Start Date End Date Bernardo Cardozo DO [address] [place] [id number] PCP - General Family Medicine 04/18/20 documented as of this encounter
--- OUTSIDE RECORDS SUMMARY | 2023-06-23 20:13 | External Medical Summary ---
Author Name Unknown Address Unknown Organization [id number]:[facility] [place] [address] [facility] [address] Laboratory Report Ordering Provider Test Date Status DEEJAY,CLARISA 05/31/2023 12:12:34 Final Observation Date Value Abnormality Reference (Units ) Status Streptococcus agalactiae DNA [Presence] in Specimen by DAVE with probe detection 05/31/2023 12:12:34 Negative Negative Final No Group B Streptococcus det ected by culture-enhanced PCR (amplified probe).
The collection of vaginal/rectal swab specimen combinations (FDA approved specimen type) is optimal for the detection of Group B Streptococcus. Single source collection (vaginal only or rectal only) or alternate specimen sources may lead to false negative results. Performing Location [facility] [place] [address] [place] [address]
--- OUTSIDE RECORDS SUMMARY | 2023-06-23 20:13 | External Medical Summary | Summary of Care ---
Author Name Unknown Organization [facility] Address [address] [place] [address] Phone [phone] Care Team Providers Care Supervisor Seaming Name Role Phone Cardozo Bernardo Vásquezclaudia Primary Care Provider Reason for Visit * Reason Onset Date Comments Pre Cert/Prior Auth 05/31/2023 Abrysvo RSV Vaccine [facility] 05/31 Encounter Details Date Type Department Care Team (Late st Contact Info) Description 05/31/2023 Telephone Gynecology/Obstetrics [facility] [address] [place] [address] Amy Storm PA-C [address] [place] [address] Pre Cert/Prior Auth (Abrysvo RSV Vaccine G... Allergies No known active allergiesdocumented as of this encounter (statuses as of 06/01/2023) Medications Medication Sig Dispensed Refills Start Date [...] Additional Information Patient not taking.Reported on 02/09/2023 Tzlyuanhdh-OANT-Myg feine 50-300-40 MG Oral Capsule (Fioricet)Indicatio ns:H/O [...] Oral Capsule Take by mouth. 0 Active Abrysvo 120 MCG/0.5ML Intramuscular Solution Reconstituted (RSV Pre-Fusion F A&B Vac Rcmb) Inject 0.5 mL into a large muscle once for 1 dose. 1 Each 0 05/31/2023 06/02/2023 Active documented as of this encounter (statuses as of 06/01/2023) Active Problems Problem Noted Date Diagnosed Date Normal 11/12/2022 History of hemorrhage, currently preg nant 11/12/2022 Family history of trisomy 18 10/11/2020 Overview: First Baby, delivered at 35w4d. 2022 - low risk Qnatal Migraine 06/13/2019 Estimated Date of Delivery Comme nts Yes 06/23/2023 Based on last me nstrual period of 09/16/2022 documented as of this encounter (statuses as of 06/01/2023) Resolved Problems Problem Noted Date Diagnosed Date Resolved Date Supervision of other normal 12/09/2020 11/12/2022 Supervision of high-risk pre gnancy, unspecified trimester 08/18/2019 02/04/2021 Polyhydramnios 08/03/2019 02/04/2021 [...] 16.1cm. Trisomy 18 of fetus in current 07/10/2019 02/04/2021 Overview: Confirmed via amnio. Desires palliative care for baby. Last Assessment & Plan: Patient had Multidisciplinary consultation today. See above for detailed report. 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, and bilateral club feet Abnormal ultrasound 06/13/2019 Supervision of normal first 04/26/2019 02/04/2021 documented as of this encounter (statuses as of 06/01/2023) Immunizations Name Administration Dates Next Due COVID-19 mRNA, LNP-s, No Pre serve, 2-Dose Series ([email or web address]) 11/01/2020,10/11/2020 COVID-19, MRNA-LNP, 23-24, P F, 30 MCG/0.3 mL, 12 YRS AND ABOVE, IM ([facility]) 05/11/2023 Covid-19, Mrna, Lnp-s, Pf, B ivalent, 30 Mcg, IM, 12 yrs and above ([email or web address]) 05/19/2022 PPD 07/18/2019 SEASONAL INFLUENZA, PF, 6 [...] = 0.6 oz pur e alcohol) ocas AUDIT-C Answer Date Recorded Frequency of Alcohol Consumption Monthly or less 10/28/2018 Average Number of Drinks Not on file 019 Frequency of Binge Drinking Not on file 10/01 PHQ-2 Answer Date Recorded PHQ-2 Score 0 09/14/2018 Hunger Vital Sign Answer Date Recorded Within the past 12 months, y ou worried that your food would run out before you got the money to buy more. Never true 11/13/19 23 Within the past 12 months, t he food you bought just didn't last and you didn't have money to get more. Never true 11/12/2022 [place] Depression Scale Answer Date Recorded [place] Depression Scale Total 0 05/10/2023 The thought of harming myself has occurred to me . Never 05/10/2023 Estimated Date of Delivery Comme nts Yes 06/23/2023 Based on last me nstrual period of 09/16/2022 Sex and Gender Information Value Date Recorded Sex Assigned at Female 04/18/2020 9:54 AM EDT Gender Identity Female 04/18/2020 9:54 AM EDT Sexual Orientation Straight 04/18/2020 9: 54 AM EDT Job Start Date Occupation Industry Not on file Not on file Not on file documented as of this encounter Miscellaneous Notes * Telephone Encounter - Emperatriz Meneses RN - 06/01/2023 1:56 PM EDT T/C from [facility]. Prior-auth for vaccine has been approved. T/C to pt. No answer. VM left for pt to return call to office. * Telephone Encounter - Emperatriz Meneses RN - 06/01/2023 9:26 AM EDT Prior-auth form filled out and faxed to [facility] as instructed. * Telephone Encounter - Emperatriz Meneses RN - 06/01/2023 9:08 AM EDT Alaina, can you review this and assist please? * Telephone Encounter - Kendra Funez OSA - 06/01/2023 8:39 AM EDT [facility] does not support vaccines. Returning to clinic. Thank you * Telephone Encounter - Emperatriz Meneses RN - 05/31/2023 2:12 PM EDT Women's Medicine Pre-Cert Request Medication/Disease State Information: Medication: Abrysvo RSV Yapdttf625lfv/0.5ml IM Diagnosis (including ICD-10): Normal in third trimester Z34.93 Medication(s) Tried/Failed/Contraindicated: NA See corresponding visit note(s) for additional supporting clinical information. Office Information: Prescriber: Amy Storm PA-C * Telephone Encounter - Amy Storm PA-C - 05/31/2023 1:47 PM EDT Can prior auth be completed for this? * Telephone Encounter - Zainab Alvarez striker off - 05/31/2023 1:31 PM EDT Prior Auth needed on [facility] for Abrysvo RSV vaccine. ID # [id number], help desk # [phone]. TOMORROW 06-01-23 IS THE LAST DAY PT CAN GET THIS VACCINE DUE TO GESTATIONAL AGE OF THE BABY. PLEASE RUSHTHIS IF POSSIBLE. When approved please call [facility] @ [phone] option 0 when approved. Thanks!! documented in this encounter Plan of Treatment Upcoming Encounters Date Type Department Care Team (Late st Contact Info) Description 06/07/2023 3:30 PM EST Office Visit Gynecology/Obstetrics [address] [address] Amy Storm PA-C [address] [place] [address] 06/14/2023 3:30 PM EST Office Visit GynecologyObstetrics [facility] [address] [place] [address] Nevin Irizarry PA-C [address] [place] [address] 06/21/2023 3:30 PM EST [facility] [address] [place] [address] Nevin Irizarry PA-C [address] [place] [address] Health Maintenance Due Date Last Done Comments [...] filedocumented as of this encounter Care Teams Supervisor Seaming Relationship Specialty Start Date End Date Bernardo Cardozo DO [address] [place] [address] PCP - General Family Medicine 04/18/20 documented as of this encounter
--- OUTSIDE RECORDS SUMMARY | 2023-06-23 20:13 | External Medical Summary | Summary of Care ---
Author Name Unknown Organization [facility] Address [address] [place] [address] Phone [phone] Care Team Providers Care Printing Shop Supervisor Name Role Phone Cas Bernardo Vásquezclaudia Primary Care Provider Reason for Visit * Reason Onset Date Comments Forms Request 05/24/2023 Encounter Details Date Type Department Care Team (Late st Contact Info) Description 05/24/2023 [facility]phone [facility] [address] [facility] [place] [address] Aysha Patel CRNP [address] [place] [address] Forms Request Allergies No known active allergiesdocumented as of this encounter (statuses as of 05/26/2023) Medications Medication Sig Dispensed Refills Start Date [...] Additional Information Patient not taking.Reported on 02/09/2023 Pgohkvgcxs-VTXU-Vzp feine 50-300-40 MG Oral Capsule (Fioricet)Indicatio ns:H/O [...] as of this encounter (statuses as of 05/26/2023) Active Problems Problem Noted Date Diagnosed Date Normal 11/12/2022 History of hemorrhage, currently preg nant 11/12/2022 Family history of trisomy 18 10/11/2020 Overview: First Baby, delivered at 35w4d. 2022 - low risk Qnatal Migraine 06/13/2019 Estimated Date of Delivery Comme nts Yes 06/23/2023 Based on last me nstrual period of 09/16/2022 documented as of this encounter (statuses as of 05/26/2023) Resolved Problems Problem Noted Date Diagnosed Date [...] as of this encounter (statuses as of 05/26/2023) Immunizations Name Administration Dates Next Due COVID-19 mRNA, LNP-s, No Pre serve, 2-Dose Series ([employer]) 11/01/2020,10/11/2020 COVID-19, MRNA-LNP, 23-24, P F, 30 MCG/0.3 mL, 12 YRS AND ABOVE, IM ([facility]) 05/11/2023 Covid-19, Mrna, Lnp-s, Pf, B ivalent, 30 Mcg, IM, 12 yrs and above ([employer]) 05/19/2022 PPD 07/18/2019 SEASONAL INFLUENZA, PF, 6 [...] money to get more. Never true 11/12/2022 [place] Depression Scale Answer Date Recorded [place] Depression Scale Total 0 05/10/2023 The thought [...] encounter Miscellaneous Notes * Telephone Encounter - ADEOLA Ramirez - 05/26/2023 11:49 AM EDT Forms faxed, scanned and placed in triage. * Telephone Encounter - Mary Varner LPN - 05/26/2023 11:43 AM EDT FMLA forms signed by provider, placed on Elo's desk. * Telephone Encounter - ADEOLA Ramirez - 05/24/2023 3:43 PM EDT Forms completed and placed on Aysha's schedule for signature. documented in this encounter Plan of Treatment Upcoming Encounters Date Type Department Care Team (Late st Contact Info) Description 05/31/2023 11:45 AM EDT Office Visit Gynecology[address] [place] [address] Amy Storm PA-C [address] [place] [address] 05/31/2023 3:30 PM EDT Imaging Gynecology/Obstetrics [address] [address] 06/07/2023 3:30 PM EST Office [address] [address] [facility]C [address] [facility] [address] 06/14/2023 3:30 PM EST [facility] [address] [address] Nevin Iriazrry PA-C [address] [facility] [address] 06/21/2023 3:30 PM EST [facility] [address] [address] Nevin Irizarry PA-C [address] [facility] [address] Health Maintenance Due Date Last Done Comments [...] filedocumented as of this encounter Care Teams Printing Shop Supervisor Relationship Specialty Start Date End Date Bernardo Cardozo DO [address] [place] [address] PCP - General Family Medicine 04/18/20 documented as of this encounter
--- OUTSIDE RECORDS SUMMARY | 2023-06-23 20:13 | External Medical Summary | Summary of Care ---
Author Name Unknown Organization [facility] Address [address] [place] [address] Phone [phone] Care Team Providers Care Boom Man Name Role Phone Cas Bernardo Vásquezclaudia Primary Care Provider Reason for Visit * Reason Onset Date Comments Medication Refill 05/19/2023 Encounter Details Date Type Department Care Team Description 05/18/2023 Refill Gynecology/Obstetrics Ben Sauceda [address] [facility] [place] [address] Ty Villaseñor CRNP [address] [facility] [place] [address] Allergies No known active allergiesdocumented as of [...] Additional Information Patient not taking.Reported on 02/09/2023 Jzejjgfdvp-GSQE-Soz feine 50-300-40 MG Oral Capsule (Fioricet)Indicatio ns:H/O [...] a large muscle once for 1 dose. 0.5 mL 0 05/19/2023 05/19/2023 Active documented as of this encounter (statuses [...] mRNA, LNP-s, No Pre serve, 2-Dose Series ([employer]) 11/01/2020,10/11/2020 COVID-19, MRNA-LNP, 23-24, P F, 30 MCG/0.3 mL, 12 YRS AND ABOVE, IM ([employer]) 05/11/2023 Covid-19, Mrna, Lnp-s, Pf, B ivalent, 30 Mcg, IM, 12 yrs and above ([employer]) 05/19/2022 PPD 07/18/2019 SEASONAL INFLUENZA, PF, 6 [...] encounter Miscellaneous Notes * Telephone Encounter - Phoebe Jarvis LPN - 05/19/2023 1:49 PM EDT Patient notified. * Telephone Encounter - RHODA Segal - 05/19/2023 1:47 PM EDTSigned Prescriptions: Disp Refills Abrysvo 120 MCG/0.5ML Intramuscular Soluti*0.5 mL 0 Sig: Inject 0.5 mL into a large muscle once for 1 dose.Authorizing Provider: TY VILLASEÑOR * Addendum Note - Phoebe Jarvis LPN - 05/19/2023 1:41 PM EDTAddended by: PHOEBE JARVIS on: 05/19/2023 01:41 PM Modules accepted: Orders * Telephone Encounter - Phoebe Jarvis LPN - 05/19/2023 1:40 PM EDT Prior auth completed and faxed to [facility]. Please send Rx for Abrysvo RSV vaccine for patient to [facility] in [place]. * Addendum Note - Phoebe Jarvis LPN - 05/19/2023 10:06 AM EDTAddended by: PHOEBE JARVIS on: 05/19/2023 10:06 AM Modules accepted: Orders * Telephone Encounter - Phoebe Jarvis LPN - 05/19/2023 10:05 AM EDT Spoke with [facility] Herminia ruby. Provided Code 96842 for Abrysvo vaccine PA. She contacted Medical Management and they advised that no PA is required. She was checking with another department to verify and then will call back. * Telephone Encounter - Phoebe Jarvis LPN - 05/18/2023 3:52 PM EDT Notified patient that we have tried to do PA with [facility] insurance and they are not able to do PA due to it not being on their list of medications yet to do the PA. She is going to contact her insuranceand maybe talk to the pharmacy to see what possible OOP cost would be. * Telephone Encounter - Sary Garcia LPN - 05/18/2023 3:43 PM EDT Phone call from pt. Pt calling in stating she spoke with her Pharmacy ( [facility] [place]) about theRSV vaccine. She states was advised to call office to inform that they are sending over the start of the prior auth for this to be covered. Pt is seen in [facility] office - had him send to [facility]. Pt currently 34 weeks 6 days . Sary Garcia LPN 05/18/2023 3:45 PM documented in this encounter Plan of Treatment Upcoming Encounters Date Type Specialty Care Team Description 05/24/2023 Office Visit Gynecology Obstetrics Susie Borden, REYES [address] [place] [place] [phone] 05/31/2023 Office Visit Gynecology Obstetrics Amy Storm PA-C [address] [place] [place] [address] 06/07/2023 Office Visit Gynecology Obstetrics Amy Storm PA-C [address] [place] [address] 06/14/2023 Office Visit Gynecology Obstetrics Nevin Irizarry PA-C [address] [address] 06/21/2023 Office Visit Gynecology Obstetrics Nevin Irizarry PA-C [address] [place] [place] [address] Health Maintenance Due Date Last Done Comments [...] filedocumented as of this encounter Care Teams Boom Man Relationship Specialty Start Date End Date Bernardo Cardozo DO [address] [place] [address] PCP - General Family Medicine 04/18/20 documented as of this encounter
--- OUTSIDE RECORDS SUMMARY | 2023-06-23 20:13 | External Medical Summary | Summary of Care ---
Author Name Unknown Organization [facility] Address [address] [place] [address] Phone [phone] Care Team Providers Care Manager Transfusion Name Role Phone Cas Bernardo Vásquezclaudia Primary Care Provider Reason for Visit * Reason Onset Date Comments Forms Request 05/24/2023 Encounter Details Date Type Department Care Team (Late st Contact Info) Description 05/24/2023 Telephone [facility] [address] [facility] [place] [address] Aysha Patel CRNP [address] [place] [address] Forms Request Allergies No known active allergiesdocumented [...] Additional Information Patient not taking.Reported on 02/09/2023 Frircgxbav-XQJB-Ktr feine 50-300-40 MG Oral Capsule (Fioricet)Indicatio ns:H/O [...] mRNA, LNP-s, No Pre serve, 2-Dose Series ([employer]) 11/01/2020,10/11/2020 COVID-19, MRNA-LNP, 23-24, P F, 30 MCG/0.3 mL, 12 YRS AND ABOVE, IM ([facility]) 05/11/2023 Covid-19, Mrna, Lnp-s, Pf, B ivalent, 30 Mcg, IM, 12 yrs and above ([employer]) 05/19/2022 PPD 07/18/2019 SEASONAL INFLUENZA, PF, 6 [...] money to get more. Never true 11/12/2022 [place] Depression Scale Answer Date Recorded [place] Depression Scale Total 0 05/10/2023 The thought [...] Description 05/31/2023 11:45 AM EDT Office Visit Gynecology[address] [place] [address] Amy Storm PA-C [address] [place] [address] 05/31/2023 3:30 PM EDT Imaging Gynecology/Obstetrics [address] [address] 06/07/2023 3:30 PM EST Office Visit [address] [address] Amy Storm PA-C 400 [facility] [address] 06/14/2023 3:30 PM EST [facility] [address] [address] Nevin Irizarry PA-C [address] [facility] [address] 06/21/2023 3:30 PM EST [facility] [address] [address] Nevin Irizarry PA-C [address] [facility] [address] Health Maintenance Due Date Last Done Comments [...] filedocumented as of this encounter Care Teams Manager Transfusion Relationship Specialty Start Date End Date Bernardo Cardozo DO [address] [place] [address] PCP - General Family Medicine 04/18/20 documented as of this encounter
--- OUTSIDE RECORDS SUMMARY | 2023-06-23 20:13 | External Medical Summary | Summary of Care ---
Author Name Unknown Organization [facility] Address [address] [place] [address] Phone [phone] Care Team Providers Care Scientist/Engineer Name Role Phone Cas Bernardo Vásquezclaudia Primary Care Provider Reason for Visit * Reason Comments Return Visit 38w 5d Encounter Details Date Type Department Care Team (Late st Contact Info) Description 06/14/2023 3:30 PM EST Office Visit Gynecology/Obstetric s [facility] [address] [place] [address] Nevin Irizarry PA-C [address] [place] [address] Normal in third trimester*; Family history of trisomy 18; History of hemorrhage, currently ; Breast feeding status of mother Allergies No known active allergiesdocumented as of this encounter (statuses as of 06/14/2023) Medications Medication Sig Dispensed Refills Start Date [...] Active Albuterol Sulfate 1.25 MG/3ML Inhalation Nebulization SolutionIndicatio ns:Mild intermittent asthma with exacerbation Inhale 1.25 mg via nebulizer every 4 hours as needed for Wheezing or Shortness of Breath. 24 mL 11 08/19/2022 Active Compressor NebulizerIndicati ons:Mild intermittent asthma with exacerbation Inhale via nebulizer. [...] for Nausea. 30 Tablet 2 11/25/2022 Active Foovdldzkw-KIOD-A affeine 50-300-40 MG Oral Capsule (Fioricet)Indicat ions:H/O migraine during Take 1 Capsule by mouth every 4 hours as needed for Headache. 30 Capsule 1 12/29/2022 Active B-2-400 400 MG Oral Capsule (Riboflavin) Take 1 Capsule by mouth in the morning. 0 Active Magnesium Oxide 400 (240 Mg) MG Oral Tablet Take 1 Tablet by mouth in the morning. 0 Active CoQ10 200 MG Oral Capsule Take by mouth. 0 Active Breast PumpIndications:B reast feeding status of mother Z39.1 Breast Feeding Status of Mother EDC: 06/23/23 Use as directed 1 Each 0 06/14/2023 Active Hydrocortisone (Perianal) 2.5 % External Cream Administer into the rectum 2 times a day. 28 g 1 06/14/2023 Active Breast Pump Breast feeding status of mother Z39.1 DEEP 06/23/2023 1 Each 0 06/07/2023 3 Discontinued documented as of this encounter (statuses as of 06/14/2023) Active Problems Problem Noted Date Diagnosed Date Normal 11/12/2022 History of hemorrhage, currently preg nant 11/12/2022 Family history of trisomy 18 10/11/2020 Overview: First Baby, delivered at 35w4d. 2022 - low risk Qnatal Migraine 06/13/2019 Estimated Date of Delivery Comme nts Yes 06/23/2023 Based on last me nstrual period of 09/16/2022 documented as of this encounter (statuses as of 06/14/2023) Resolved Problems Problem Noted Date Diagnosed Date [...] as of this encounter (statuses as of 06/14/2023) Immunizations Name Administration Dates Next Due COVID-19 mRNA, LNP-s, No Pre serve, 2-Dose Series ([employer]) 11/01/2020,10/11/2020 COVID-19, MRNA-LNP, 23-24, P F, 30 MCG/0.3 mL, 12 YRS AND ABOVE, IM ([employer]) 05/11/2023 Covid-19, Mrna, Lnp-s, Pf, B ivalent, 30 Mcg, IM, 12 yrs and above ([employer]) 05/19/2022 PPD 07/18/2019 RSV Vac., Bivalent, Perfusio n F, Pf,0.5 Ml (Abrysvo) 06/01/2023 SEASONAL INFLUENZA, PF, 6 M & Above, [...] money to get more. Never true 11/12/2022 [place] Depression Scale Answer Date Recorded [place] Depression Scale Total 0 05/10/2023 The thought [...] on file documented as of this encounter Last Filed Vital Signs Vital Sign Reading Time Taken Comments Blood Pressure 100/64 06/14/2023 3:17 PM EST Pulse - - Temperature - - Respiratory Rate - - Oxygen Saturation - - Inhaled Oxygen Concentration - - Weight 83.8 kg (184 lb 12.8 oz) 06/14/2023 3:17 PM EST Height - - Body Mass Index 28.1 05/10/2023 9:08 AM EDT documented in this encounter Progress Notes * Nevin Irizarry PA-C - 06/14/2023 3:18 PM EST Gia Priest is a 32 year old female here for her routine OB appointment at 38w5d. Her Estimated Date of Delivery: 06/23/23 REVIEW OF SYSTEMS: She affirms movement. Denies vaginal bleeding, LOF, contractions, N/V, headaches PHYSICAL EXAM: Filed Vitals: 06/14/23 1517 BP: 100/64 Weight: 83.8 kg (184 lb 12.8 oz) ASSESSMENT/PLAN: (Z82.79) Family history of trisomy 18 (O09.299) History of hemorrhage, currently Supervision of - Advised when to call: Vaginal bleeding, leaking of fluid, regular contractions every five minutesfor at least an hour, decreased movement, any other questions or concerns. Reviewed [facility] - [facility]OL 06/25/2023 at [facility] at 730AM - RTO in 1 week for PB Irizarry PA-C documented in this encounter Nursing Notes * Steph Stuart LPN - 06/14/2023 3:19 PM EST Chief Complaint Patient presents with Return Visit 38w 5d documented in this encounter Plan of Treatment Upcoming Encounters Date Type Department Care Team (Late st Contact Info) Description 06/21/2023 11:30 AM EST Office Visit Gynecology/Obstetrics [facility] [address] [place] [phone] Amy Storm PA-C [address] [place] [address] Health Maintenance Due Date Last Done Comments [...] Not on filedocumented as of this encounter Visit Diagnoses Diagnosis Normal in third trimester- Primary Family history of trisomy 18 Family history of genetic disease carrier History of hemorrhage, currently with other poor obstetric history Breast feeding status of mother care and examination of lactating mother documented in this encounter Care Teams Scientist/Engineer Relationship Specialty Start Date End Date Bernardo Cardozo DO [address] [place] [address] PCP - General Family Medicine 04/18/20 documented as of this encounter
--- OUTSIDE RECORDS SUMMARY | 2023-06-23 20:13 | External Medical Summary | Summary of Care ---
Author Name Unknown Organization [facility] Address [address] [place] [address] Phone [phone] Care Team Providers Care Care Services Manager Name Role Phone Cardozo Bernardo Vásquezclaudia Primary Care Provider Reason for Visit * Reason Onset Date Comments Pre Cert/Prior Auth 05/31/2023 Abrysvo RSV Vaccine [facility] 05/31 Encounter Details Date Type Department Care Team (Late st Contact Info) Description 05/31/2023 Telephone Gynecology/Obstetrics [facility] [address] [place] [address] Amy Storm PA-C [address] [place] [address] Pre Cert/Prior Auth (Abrysvo RSV [...] Additional Information Patient not taking.Reported on 02/09/2023 Umzlezutxp-LFOV-Xdi feine 50-300-40 MG Oral Capsule (Fioricet)Indicatio ns:H/O [...] mRNA, LNP-s, No Pre serve, 2-Dose Series ([employer]) 11/01/2020,10/11/2020 COVID-19, MRNA-LNP, 23-24, P F, 30 MCG/0.3 mL, 12 YRS AND ABOVE, IM ([facility]) 05/11/2023 Covid-19, Mrna, Lnp-s, Pf, B ivalent, 30 Mcg, IM, 12 yrs and above ([employer]) 05/19/2022 PPD 07/18/2019 SEASONAL INFLUENZA, PF, 6 [...] money to get more. Never true 11/12/2022 [place] Depression Scale Answer Date Recorded [place] Depression Scale Total 0 05/10/2023 The thought [...] Encounter - Emperatriz Meneses RN - 06/01/2023 3:01 PM EDT Pt returned call and aware of previous message. * Telephone Encounter - Emperatriz Meneses RN - 06/01/2023 1:56 PM EDT T/C from [facility]. Prior-auth for vaccine has been approved. T/C to pt. No answer. VM left for pt to return call to office. * Telephone Encounter - Emperatriz Meneses RN - 06/01/2023 9:26 AM EDT Prior-auth form filled out and faxed to [facility] as instructed. * Telephone Encounter - Emperatriz Meneses RN - 06/01/2023 9:08 AM EDT Alaina, can you review this and assist please? * Telephone Encounter - Kendra Funez OSA - 06/01/2023 8:39 AM EDT [facility] does not support vaccines. Returning to clinic. Thank you * Telephone Encounter - Emperatriz Meneses RN - 05/31/2023 2:12 PM EDT Women's Medicine Pre-Cert Request Medication/Disease State Information: Medication: Abrysvo RSV Pzhtixk260qlr/0.5ml IM Diagnosis (including ICD-10): Normal in third trimester Z34.93 Medication(s) Tried/Failed/Contraindicated: NA See corresponding visit note(s) for additional supporting clinical information. Office Information: Prescriber: Amy Storm PA-C * Telephone Encounter - Amy Storm PA-C - 05/31/2023 1:47 PM EDT Can prior auth be completed for this? * Telephone Encounter - Zainab Alvarez PHARM Tech - 05/31/2023 1:31 PM EDT Prior Auth needed on [facility] for Abrysvo RSV vaccine. ID # [id number], help desk # [phone]. TOMORROW 06-01-23 IS THE LAST DAY PT CAN GET THIS VACCINE DUE TO GESTATIONAL AGE OF THE BABY. PLEASE RUSHTHIS IF POSSIBLE. When approved please call [facility] @ [phone] option 0 when approved. Thanks!! documented in this encounter Plan of Treatment Upcoming Encounters Date Type Department Care Team (Late st Contact Info) Description 06/07/2023 3:30 PM EST Office Visit Gynecology/Obstetrics [address] [phone] Amy Storm PA-C [address] [place] [address] 06/14/2023 3:30 PM EST [facility] [address] [place] [phone] Nevin Irizarry PA-C [address] [place] [address] 06/21/2023 3:30 PM EST Office Visit Gynecology/Obstetrics [address] [place] [address] Nevin Irizarry PA-C [address] [place] [address] Health Maintenance Due Date Last Done Comments [...] filedocumented as of this encounter Care Teams Care Services Manager Relationship Specialty Start Date End Date Bernardo Cardozo DO [address] [address] PCP - General Family Medicine 04/18/20 documented as of this encounter
--- OUTSIDE RECORDS SUMMARY | 2023-06-23 20:13 | External Medical Summary | Summary of Care ---
Author Name Unknown Organization [facility] Address [address] [place] [address] Phone [phone] Care Team Providers Care Associate Director Data & Analytics Name Role Phone Bernardo Cardozo DO Primary Care Provider Reason for Visit * Reason Comments Return Visit 35.5 weeks Encounter Details Date Type Department Care Team (Late st Contact Info) Description 05/24/2023 3:30 PM EDT Office Visit Gynecology/Obstetric s [facility] [address] [place] [address] Susie Borden [facility] [address] [place], [place] [phone] Normal intrauterine , antepartum*; Family history of trisomy 18; History of hemorrhage, currently Allergies No known active allergiesdocumented as of this encounter (statuses as of 05/24/2023) Medications Medication Sig Dispensed Refills Start Date [...] Additional Information Patient not taking.Reported on 02/09/2023 Kuimokzxwu-GFYS-Qct feine 50-300-40 MG Oral Capsule (Fioricet)Indicatio ns:H/O [...] as of this encounter (statuses as of 05/24/2023) Active Problems Problem Noted Date Diagnosed Date Normal 11/12/2022 History of hemorrhage, currently preg nant 11/12/2022 Family history of trisomy 18 10/11/2020 Overview: First Baby, delivered at 35w4d. 2022 - low risk Qnatal Migraine 06/13/2019 Estimated Date of Delivery Comme nts Yes 06/23/2023 Based on last me nstrual period of 09/16/2022 documented as of this encounter (statuses as of 05/24/2023) Resolved Problems Problem Noted Date Diagnosed Date [...] as of this encounter (statuses as of 05/24/2023) Immunizations Name Administration Dates Next Due COVID-19 mRNA, LNP-s, No Pre serve, 2-Dose Series ([employer]) 11/01/2020,10/11/2020 COVID-19, MRNA-LNP, 23-24, P F, 30 MCG/0.3 mL, 12 YRS AND ABOVE, IM ([employer] [facility]) 05/11/2023 Covid-19, Mrna, Lnp-s, Pf, B ivalent, 30 Mcg, IM, 12 yrs and above ([employer]) 05/19/2022 PPD 07/18/2019 SEASONAL INFLUENZA, PF, 6 [...] money to get more. Never true 11/12/2022 [place] Depression Scale Answer Date Recorded [place] Depression Scale Total 0 05/10/2023 The thought [...] Sign Reading Time Taken Comments Blood Pressure 102/54 05/24/2023 3:23 PM EDT Pulse - - Temperature 37.2 C (99 F) 05/24/2023 3:23 PM EDT Respiratory Rate - - Oxygen Saturation - - Inhaled Oxygen Concentration - - Weight 81.2 kg (179 lb) 05/24/2023 3:23 PM EDT Height - - Body Mass Index 27.22 05/10/2023 9:08 AM EDT documented in this encounter Progress Notes * Susie Borden CNM - 05/24/2023 3:58 PM EDT Gia Priest is a 32 year old female here for her routine OB appointment at 35w5d Her Estimated Date of Delivery: 06/23/23 REVIEW OF SYSTEMS: She affirms movement. Denies vaginal bleeding, LOF, contractions, N/V, headaches Overall feeling good. States she is trying to get RSV vaccine, states Chichi put in order, just having insurance issues. PHYSICAL EXAM: Filed Vitals: 05/24/23 1523 BP: 102/54 Temp: 37.2 C (99 F) Weight: 81.2 kg (179 lb) ASSESSMENT/PLAN: (Z34.90) Normal (primary encounter diagnosis) Plan: - Doing well - Flu shot and covid booster complete - Baby feels oblique, US next visit for position check (Z82.79) Family history of trisomy 18 Plan: - Coping well, states less anxiety this (O09.299) History of hemorrhage, currently Supervision of -flu shot complete - recommended Covid vaccine due to increased risk of severe disease in . Patient received booster 2 weeks ago. - discussed GBS and to expect swab to be complete at next visit - labor precautions and kick counts reviewed - RTO in 2 weeks Susie Borden CNM documented in this encounter Nursing Notes * Emperatriz Meneses RN - 05/24/2023 3:26 PM EDT Chief Complaint Patient presents with Return Visit 35.5 weeks RPN appt. Offers no complaints today,. documented in this encounter Plan of Treatment Upcoming Encounters Date Type Department Care Team (Late st Contact Info) Description 05/31/2023 11:45 AM EDT Office Visit Gynecology/Obstetrics [facility] [address] [place] [address] Amy Storm PA-C [address] [place] [address] 05/31/2023 3:30 PM EDT Imaging Gynecology/Obstetrics [place] [facility] [address] [place] [address] 06/07/2023 3:30 PM EST Office Visit Gynecology/Obstetrics [address] [address] Amy Storm PA-C [address] [place] [address] 06/14/2023 3:30 PM EST Office Visit Gynecology[address]stetrics [address] [address] Nevin Irizarry PA-C [address] [place] [address] 06/21/2023 3:30 PM EST Office Visit Gynecology/Obstetrics [address], [place] [address] Nevin [facility]arry PA-C [address] [facility] [address] Scheduled Orders Name Type Priority Associated Diagnoses Orde r Schedule US PREG LIMITED 1 OR MORE FETUSES Medical Imaging Routine Normal intrauterine , antepartum Expected: 05/31/2023, Expires: 06/24/2024 Health Maintenance Due Date Last Done Comments [...] of this encounter Visit Diagnoses Diagnosis Normal intrauterine , antepartum- Primary Family history of trisomy 18 Family history of genetic disease carrier History of hemorrhage, currently with other poor obstetric history documented in this encounter Care Teams Associate Director Data & Analytics Relationship Specialty Start Date End Date Bernardo Cardozo DO [address] [address] PCP - General Family Medicine 04/18/20 documented as of this encounter
--- OUTSIDE RECORDS SUMMARY | 2023-06-23 20:13 | External Medical Summary | Summary of Care ---
Author Name Unknown Organization [facility] Address [address] [place] [address] Phone [phone] Care Team Providers Care Specimen Collector Name Role Phone Cas Bernardo Maria DO Primary Care Provider Reason for Visit * Reason Comments Return Visit 36 weeks 5 days Encounter Details Date Type Department Care Team (Late st Contact Info) Description 05/31/2023 11:45 AM EDT Office Visit Gynecology/Obstetric s [facility] [address] [place] [address] Amy Storm PA-C [address] [place] [address] Normal in third trimester*; Family history of trisomy 18; History of hemorrhage, currently Allergies No known active allergiesdocumented as of this encounter (statuses as of 05/31/2023) Medications Medication Sig Dispensed Refills Start Date [...] Active Albuterol Sulfate 1.25 MG/3ML Inhalation Nebulization SolutionIndication s:Mild intermittent asthma with exacerbation Inhale 1.25 mg via nebulizer every 4 hours as needed for Wheezing or Shortness of Breath. 24 mL 11 08/19/2022 Active Compressor NebulizerIndicatio ns:Mild intermittent asthma with exacerbation Inhale via nebulizer. [...] Additional Information Patient not taking.Reported on 02/09/2023 Mealkotiih-ISWE-Gc ffeine 50-300-40 MG Oral Capsule (Fioricet)Indicati ons:H/O migraine during Take 1 Capsule by mouth [...] for 1 dose. 1 Each 0 05/31/2023 3 Active Abrysvo 120 MCG/0.5ML Intramuscular Solution Reconstituted (RSV Pre-Fusion F A&B Vac Rcmb) Inject 0.5 mL into a large muscle once for 1 dose. 0.5 mL 0 05/19/2023 3 Discontinue d(Refill) documented as of this encounter (statuses as of 05/31/2023) Active Problems Problem Noted Date Diagnosed Date Normal 11/12/2022 History of hemorrhage, currently preg nant 11/12/2022 Family history of trisomy 18 10/11/2020 Overview: First Baby, delivered at 35w4d. 2022 - low risk Qnatal Migraine 06/13/2019 Estimated Date of Delivery Comme nts Yes 06/23/2023 Based on last me nstrual period of 09/16/2022 documented as of this encounter (statuses as of 05/31/2023) Resolved Problems Problem Noted Date Diagnosed Date [...] as of this encounter (statuses as of 05/31/2023) Immunizations Name Administration Dates Next Due COVID-19 mRNA, LNP-s, No Pre serve, 2-Dose Series ([employer]) 11/01/2020,10/11/2020 COVID-19, MRNA-LNP, 23-24, P F, 30 MCG/0.3 mL, 12 YRS AND ABOVE, IM ([facility]) 05/11/2023 Covid-19, Mrna, Lnp-s, Pf, B ivalent, 30 Mcg, IM, 12 yrs and above ([employer]) 05/19/2022 PPD 07/18/2019 SEASONAL INFLUENZA, PF, 6 M & Above, IM , ([employer] FLUZ[employer]) 05/06/2023,05/11/2022,04/22/2021 Seasonal Influenza, Quadriva lent, No Preserve, IM 05/06/2020,05/15/2019,05/20/2018 TDAP (age 10 and older)([employer]) 04/12/2023,05/2021 documented as of this encounter Social History Tobacco Use Types Packs/Day Years Used Date Smoking Tobacco: Never Smokeless Tobacco: Never Tobacco Cessation:Counseling Given: Not Answered Alcohol Use Standard Drinks/Week Comments Not Currently [...] money to get more. Never true 11/12/2022 [place] Depression Scale Answer Date Recorded [place] Depression Scale Total 0 05/10/2023 The thought [...] Sign Reading Time Taken Comments Blood Pressure 100/62 05/31/2023 11:44 AM EDT Pulse - - Temperature 36.8 C (98.3 F) 05/31/2023 11:44 AM E DT Respiratory Rate - - Oxygen Saturation - - Inhaled Oxygen Concentration - - Weight 82 kg (180 lb 12.8 oz) 05/31/2023 11:44 A M EDT Height - - Body Mass Index 27.49 05/10/2023 9:08 AM EDT documented in this encounter Progress Notes * Amy Storm PA-C - 05/31/2023 11:53 AM EDT Gia Priest is a 32 year old female here for her routine OB appointment at 36w5d Her Estimated Date of Delivery: 06/23/23 REVIEW OF SYSTEMS: She affirms movement. Denies vaginal bleeding, LOF, N/V, headaches Was having coryb-kaiser, pelvic pressure last night. Not time able. PHYSICAL EXAM: Filed Vitals: 05/31/23 1144 BP: 100/62 Temp: 36.8 C (98.3 F) Weight: 82 kg (180 lb 12.8 oz) +FHT 130s Fundal height 36 CE: 0/0/-3 Engineer Design And Construction Documentation Patient offered radio repairman and accepted. Name of radio repairman: Sary Sanchez LPN ASSESSMENT/PLAN: Normal in third trimester (Primary) - GROUP B STREP CULTURE/PCR; Future; Expected date: 05/31/2023 - GROUP B STREP CULTURE/PCR Family history of trisomy 18 History of hemorrhage, currently Other orders - Abrysvo 120 MCG/0.5ML Intramuscular Solution Reconstituted (RSV Pre-Fusion F A&B Vac Rcmb); Inject 0.5 mL into a large muscle once for 1 dose. Follow Up: Return in about 1 week (around 06/07/2023) for PB. | For: PB Supervision of - GBS swab collected today - uncertain presentation - has ultrasound scheduled today - labor precautions and kick counts reviewed - RTO in 1 week Amy Storm PA-C documented in this encounter Nursing Notes * Cheri-Sary Sanchez LPN - 05/31/2023 11:45 AM EDT Chief Complaint Patient presents with Return Visit 36 weeks 5 days Pt with intermittent corby Kaiser contractions last evening . Sary Garcia LPN 05/31/2023 11:45 AM documented in this encounter Plan of Treatment Upcoming Encounters Date Type Department Care Team (Late st Contact Info) Description 06/07/2023 3:30 PM EST Office Visit Gynecology/Obstetrics [facility] [address] [place] [address] Amy Storm PA-C [address] [place] [address] 06/14/2023 3:30 PM EST Office Visit Gynecology/Obstetrics [facility] [address] [place] [address] Nevin Irizarry PA-C [address] [place] [address] 06/21/2023 3:30 PM EST Office Visit Gynecology/Obstetrics [facility] [address] [facility] [address] Nevin Irizarry PA-C [address] [place] [address] Pending Results Name Type Priority Associated Diagnoses Date /Time GROUP B STREP CULTURE/PCR Lab Routine Normal in third trimester 05/31/2023 12:12 PM EDT Scheduled Orders Name Type Priority Associated Diagnoses Orde r Schedule GROUP B STREP CULTURE/PCR Lab Routine Normal in third trimester Expected: 05/31/2023, Expires: 05/31/2024 Health Maintenance Due Date Last Done Comments [...] history documented in this encounter Care Teams Specimen Collector Relationship Specialty Start Date End Date Bernardo Cardozo DO [address] [facility] [place] [address] PCP - General Family Medicine 04/18/20 documented as of this encounter"
--- OUTSIDE RECORDS SUMMARY | 2023-06-23 20:13 | External Medical Summary | Summary of Care ---
Author Name Unknown Organization [facility] Address [address] [place] [address] Phone [phone] Care Team Providers Care Insole Rounder Name Role Phone Cardozo Bernardo Vásquezclaudia Primary Care Provider Reason for Visit * Reason Onset Date Comments Pre Cert/Prior Auth 05/31/2023 Abrysvo RSV Vaccine [facility] 05/31 Encounter Details Date Type Department Care Team (Late st Contact Info) Description 05/31/2023 Telephone Gynecology/Obstetrics [facility] [address] [place] [address] Amy Storm PA-C [address] [place] [address] Pre Cert/Prior Auth (Abrysvo RSV [...] Additional Information Patient not taking.Reported on 02/09/2023 Xyqfttmzri-QFYU-Kiu feine 50-300-40 MG Oral Capsule (Fioricet)Indicatio ns:H/O [...] mRNA, LNP-s, No Pre serve, 2-Dose Series ([employer]) 11/01/2020,10/11/2020 COVID-19, MRNA-LNP, 23-24, P F, 30 MCG/0.3 mL, 12 YRS AND ABOVE, IM ([facility]) 05/11/2023 Covid-19, Mrna, Lnp-s, Pf, B ivalent, 30 Mcg, IM, 12 yrs and above ([employer]) 05/19/2022 PPD 07/18/2019 SEASONAL INFLUENZA, PF, 6 [...] money to get more. Never true 11/12/2022 [place] Depression Scale Answer Date Recorded [place] Depression Scale Total 0 05/10/2023 The thought [...] Prior-auth form filled out and faxed to [facility] as instructed. * Telephone Encounter - Emperatriz Meneses RN - 06/01/2023 9:08 AM EDT Alaina, can you review this and assist please? * Telephone Encounter - Kendra Funez OSA - 06/01/2023 8:39 AM EDT [facility] does not support vaccines. Returning to clinic. Thank you * Telephone Encounter - Emperatriz Meneses RN - 05/31/2023 2:12 PM EDT Women's Medicine Pre-Cert Request Medication/Disease State Information: Medication: Abrysvo RSV Llxxtpz097ujo/0.5ml IM Diagnosis (including ICD-10): Normal in third trimester Z34.93 Medication(s) Tried/Failed/Contraindicated: NA See corresponding visit note(s) for additional supporting clinical information. Office Information: Prescriber: Amy Storm PA-C * Telephone Encounter - Amy Storm PA-C - 05/31/2023 1:47 PM EDT Can prior auth be completed for this? * Telephone Encounter - Zainab Alvarez senior mechanical development engineer - 05/31/2023 1:31 PM EDT Prior Auth needed on [facility] for Abrysvo RSV vaccine. ID # [id number], help desk # [phone]. TOMORROW 06-01-23 IS THE LAST DAY PT CAN GET THIS VACCINE DUE TO GESTATIONAL AGE OF THE BABY. PLEASE RUSHTHIS IF POSSIBLE. When approved please call [facility] @ [phone] option 0 when approved. Thanks!! documented in this encounter Plan of Treatment Upcoming Encounters Date Type Department Care Team (Late st Contact Info) Description 06/07/2023 3:30 PM EST Office Visit Gynecology/Obstetrics [address] [address] Amy Storm PA-C [address] [place] [address] 06/14/2023 3:30 PM EST Office Visit Gynecology/[address]stetrics [address] [address] Nevin Irizarry PA-C [address] [place] [address] 06/21/2023 3:30 PM EST Office Visit [facility]stetrics [address] [address] Nevin Irizarry PA-C [address] [facility] [address] Health Maintenance Due Date Last Done Comments [...] filedocumented as of this encounter Care Teams Insole Rounder Relationship Specialty Start Date End Date Bernardo Cardozo DO [address] [place] [address] PCP - General Family Medicine 04/18/20 documented as of this encounter
--- OUTSIDE RECORDS SUMMARY | 2023-06-23 20:13 | External Medical Summary | Summary of Care ---
Author Name Unknown Organization [facility] Address [address] [place] [address] Phone [phone] Care Team Providers Care Manager Pe Name Role Phone Cas Bernardo Maria DO Primary Care Provider Reason for Visit * Reason Comments Return Visit 39 weeks 5 days Encounter Details Date Type Department Care Team (Late st Contact Info) Description 06/21/2023 11:30 AM EST Office Visit Gynecology/Obstetric s [facility] [address] [place] [address] Amy Storm PA-C [address] [place] [address] Normal in third trimester*; Family history of trisomy 18; History of hemorrhage, currently Allergies No known active allergiesdocumented as of this encounter (statuses as of 06/21/2023) Medications Medication Sig Dispensed Refills Start Date [...] Active Albuterol Sulfate 1.25 MG/3ML Inhalation Nebulization SolutionIndications: Mild intermittent asthma with exacerbation Inhale 1.25 mg via nebulizer every 4 hours as needed for Wheezing or Shortness of Breath. 24 mL 11 08/19/2022 Active Compressor NebulizerIndications :Mild intermittent asthma with exacerbation Inhale via nebulizer. [...] for Nausea. 30 Tablet 2 11/25/2022 Active Atcmdsppgd-SLTE-Awxf eine 50-300-40 MG Oral Capsule (Fioricet)Indication s:H/O migraine during Take 1 Capsule by mouth [...] Capsule Take by mouth. 0 Active Breast PumpIndications:[place] st feeding status of mother Z39.1 Breast Feeding Status of Mother EDC: 06/23/23 Use as directed 1 Each 0 06/14/2023 Active Hydrocortisone (Perianal) 2.5 % External Cream Administer into the rectum 2 times a day. 30 g 1 06/14/2023 Active documented as of this encounter (statuses as of 06/21/2023) Active Problems Problem Noted Date Diagnosed Date Normal 11/12/2022 History of hemorrhage, currently preg nant 11/12/2022 Family history of trisomy 18 10/11/2020 Overview: First Baby, delivered at 35w4d. 2022 - low risk Qnatal Migraine 06/13/2019 Estimated Date of Delivery Comme nts Yes 06/23/2023 Based on last me nstrual period of 09/16/2022 documented as of this encounter (statuses as of 06/21/2023) Resolved Problems Problem Noted Date Diagnosed Date [...] as of this encounter (statuses as of 06/21/2023) Immunizations Name Administration Dates Next Due COVID-19 mRNA, LNP-s, No Pre serve, 2-Dose Series ([employer]) 11/01/2020,10/11/2020 COVID-19, MRNA-LNP, 23-24, P F, 30 MCG/0.3 mL, 12 YRS AND ABOVE, IM ([facility]) 05/11/2023 Covid-19, Mrna, Lnp-s, Pf, B ivalent, 30 Mcg, IM, 12 yrs and above ([employer]) 05/19/2022 PPD 07/18/2019 RSV Vac., Bivalent, Perfusio [...] money to get more. Never true 11/12/2022 [place] Depression Scale Answer Date Recorded [place] Depression Scale Total 0 05/10/2023 The thought [...] Sign Reading Time Taken Comments Blood Pressure 116/70 06/21/2023 11:27 AM EST Pulse - - Temperature 36.6 C (97.9 F) 06/21/2023 11:[address] Respiratory Rate - - Oxygen Saturation - - Inhaled Oxygen Concentration - - Weight 83.5 kg (184 lb) 06/21/2023 11:27 AM EST Height - - Body Mass Index 27.98 05/10/2023 9:08 AM EDT documented in this encounter Progress Notes * Amy Storm PA-C - 06/21/2023 11:42 AM EST Gia Priest is a 32 year old female here for her routine OB appointment at 39w5d Her Estimated Date of Delivery: 06/23/23 REVIEW OF SYSTEMS: She affirms movement. Denies vaginal bleeding, LOF, contractions, N/V, headaches PHYSICAL EXAM: Filed Vitals: 06/21/23 1127 BP: 116/70 Temp: 36.6 C (97.9 F) Weight: 83.5 kg (184 lb) +FHT 120s Fundal height 39 CE: 0/soft/-3 Biological Science Technician Documentation Patient offered form tamper operator and accepted. Name of form tamper operator: Brianda Ha LPN ASSESSMENT/PLAN: Normal (Primary) Family history of trisomy 18 History of hemorrhage, currently Supervision of - labor precautions and kick counts reviewed - Scheduled for IOL at [facility] on 06/25 Amy Storm PA-C documented in this encounter Nursing Notes * Sary Garcia LPN - 06/21/2023 11:27 AM EST Chief Complaint Patient presents with Return Visit 39 weeks 5 days IOL [facility] 06/25 Sary Garcia LPN 06/21/2023 11:27 AM documented in this encounter Plan of Treatment Health Maintenance Due Date Last Done Comments [...] history documented in this encounter Care Teams Manager Pe Relationship Specialty Start Date End Date Bernardo Cardozo DO [address] [address] PCP - General Family Medicine 04/18/20 documented as of this encounter
--- OUTSIDE RECORDS SUMMARY | 2023-06-23 20:13 | External Medical Summary | Summary of Care ---
Author Name Unknown Organization [facility] Address [address] [place] [address] Phone [phone] Care Team Providers Care Metal Filer Name Role Phone Bernardo Cardozoclaudia Primary Care Provider Encounter Details Date Type Department Care Team Description 05/18/2023 [facility] [address] [place] [address] Aysha Patel CRNP [address] [place] [address] Allergies No known active allergiesdocumented as [...] Additional Information Patient not taking.Reported on 02/09/2023 Lfykodfjma-KTAG-Mmo feine 50-300-40 MG Oral Capsule (Fioricet)Indicatio ns:H/O [...] mRNA, LNP-s, No Pre serve, 2-Dose Series ([employer]) 11/01/2020,10/11/2020 COVID-19, MRNA-LNP, 23-24, P F, 30 MCG/0.3 mL, 12 YRS AND ABOVE, IM ([facility]) 05/11/2023 Covid-19, Mrna, Lnp-s, Pf, B ivalent, 30 Mcg, IM, 12 yrs and above ([employer]) 05/19/2022 PPD 07/18/2019 SEASONAL INFLUENZA, PF, 6 [...] EDT Prior auth completed and faxed to [facility]. Please send Rx for Abrysvo RSV vaccine for patient to [facility] in [place]. * Addendum Note - Phoebe Jarvis LPN - 05/19/2023 10:06 AM EDTAddended by: PHOEBE JARVIS on: 05/19/2023 10:06 AM Modules accepted: Orders * Telephone Encounter - Phoebe Jarvis LPN - 05/19/2023 10:05 AM EDT Spoke with [facility] Herminia ruby. Provided Code 19916 for Abrysvo vaccine PA. She contacted Medical Management and they advised that no PA is required. She was checking with another department to verify and then will call back. * Telephone Encounter - Phoebe Jarvis LPN - 05/18/2023 3:52 PM EDT Notified patient that we have tried to do PA with [facility] insurance and they are not able to [...] stating she spoke with her Pharmacy ( [facility]) about theRSV vaccine. She states was advised to call office to inform that they are sending over the start of the prior auth for this to be covered. Pt is seen in [facility] office - had him send to [facility]. Pt currently 34 weeks 6 days . Sary Garcia LPN 05/18/2023 3:45 PM documented in this encounter Plan of Treatment Upcoming Encounters Date Type Specialty Care Team Description 05/24/2023 Office Visit Gynecology Obstetrics Susie Borden, REYES [address] [address] 05/31/2023 Office Visit Gynecology Obstetrics Amy Storm PA-C [address] [phone] 06/07/2023 Office Visit Gynecology Obstetrics Amy Storm PA-C [address] [address] 06/14/2023 Office Visit Gynecology Obstetrics Nevin Irizarry PA-C [address] [address] 06/21/2023 Office Visit Gynecology Obstetrics Nevin Irizarry PA-C [address] [address] Health Maintenance Due Date Last Done Comments [...] filedocumented as of this encounter Care Teams Metal Filer Relationship Specialty Start Date End Date Bernardo Cardozo DO [address] [place] [address] PCP - General Family Medicine 04/18/20 documented as of this encounter
--- OUTSIDE RECORDS SUMMARY | 2023-06-23 20:13 | External Medical Summary | Summary of Care ---
Author Name Unknown Organization [facility] Address [address] [place] [address] Phone [phone] Care Team Providers Care Timing Inspector Name Role Phone Cas Bernardo Vásquezclaudia Primary Care Provider Reason for Visit * Reason Comments Return Visit 37.5 weeks Encounter Details Date Type Department Care Team (Late st Contact Info) Description 06/07/2023 3:30 PM EST Office Visit Gynecology/Obstetric s [facility] [address] [place] [address] Amy Storm PA-C [address] [place] [address] Normal in third trimester*; Family history of trisomy 18; History of hemorrhage, currently ; Breast feeding status of mother Allergies No known active allergiesdocumented as of this encounter (statuses as of 06/07/2023) Medications Medication Sig Dispensed Refills Start Date [...] Additional Information Patient not taking.Reported on 02/09/2023 Bqwfgpglwh-ODRV-Zhf feine 50-300-40 MG Oral Capsule (Fioricet)Indicatio ns:H/O [...] Capsule Take by mouth. 0 Active Breast Pump Breast feeding status of mother Z39.1 DEEP 06/23/2023 1 Each 0 06/07/2023 Active documented as of this encounter (statuses as of 06/07/2023) Active Problems Problem Noted Date Diagnosed Date Normal 11/12/2022 History of hemorrhage, currently preg nant 11/12/2022 Family history of trisomy 18 10/11/2020 Overview: First Baby, delivered at 35w4d. 2022 - low risk Qnatal Migraine 06/13/2019 Estimated Date of Delivery Comme nts Yes 06/23/2023 Based on last me nstrual period of 09/16/2022 documented as of this encounter (statuses as of 06/07/2023) Resolved Problems Problem Noted Date Diagnosed Date [...] as of this encounter (statuses as of 06/07/2023) Immunizations Name Administration Dates Next Due COVID-19 mRNA, LNP-s, No Pre serve, 2-Dose Series ([employer]) 11/01/2020,10/11/2020 COVID-19, MRNA-LNP, 23-24, P F, 30 MCG/0.3 mL, 12 YRS AND ABOVE, IM ([facility]) 05/11/2023 Covid-19, Mrna, Lnp-s, Pf, B ivalent, [...] money to get more. Never true 11/12/2022 Hathaway Depression Scale Answer Date Recorded Hathaway Depression Scale Total 0 05/10/2023 The thought [...] Sign Reading Time Taken Comments Blood Pressure 92/58 06/07/2023 3:24 PM EST Pulse - - Temperature 36.8 C (98.2 F) 06/07/2023 3:24 PM ES T Respiratory Rate - - Oxygen Saturation - - Inhaled Oxygen Concentration - - Weight 82.2 kg (181 lb 3.2 oz) 06/07/2023 3:24 P M EST Height - - Body Mass Index 27.55 05/10/2023 9:08 AM EDT documented in this encounter Progress Notes * Amy Storm PA-C - 06/07/2023 3:26 PM EST Gia Priest is a 32 year old female here for her routine OB appointment at 37w5d Her Estimated Date of Delivery: 06/23/23 REVIEW OF SYSTEMS: She affirms movement. Denies vaginal bleeding, LOF, N/V, headaches Reports some intermittent contractions, not regular or time able PHYSICAL EXAM: Filed Vitals: 06/07/23 1524 BP: 92/58 Temp: 36.8 C (98.2 F) Weight: 82.2 kg (181 lb 3.2 oz) +FHT 130s Fundal height 38 ASSESSMENT/PLAN: Normal (Primary) Family history of trisomy 18 History of hemorrhage, currently Breast feeding status of mother Other orders - Breast Pump; Breast feeding status of mother Z39.1 DEEP 06/23/2023 Follow Up: Return in about 1 week (around 06/14/2023) for PB. | For: PB Supervision of - labor precautions and kick counts reviewed - RTO in 1 week Amy Storm PA-C documented in this encounter Nursing Notes * Emperatriz Meneses RN - 06/07/2023 3:26 PM EST Chief Complaint Patient presents with Return Visit 37.5 weeks RPN appt today. Offers no complaints. documented in this encounter Plan of Treatment Upcoming Encounters Date Type Department Care Team (Late st Contact Info) Description 06/14/2023 3:30 PM EST Office Visit Gynecology/Obstetrics [address] [address] Nevin Irizarry PA-C [address] [place] [address] [place] [address] 06/21/2023 11:30 AM EST Office Visit Gynecology/Obstetrics [address] [place] [address] Amy Storm PA-C [address] [place] [address] Health Maintenance Due Date Last Done Comments [...] mother documented in this encounter Care Teams Timing Inspector Relationship Specialty Start Date End Date Bernardo Cardozo DO [address] [address] PCP - General Family Medicine 04/18/20 documented as of this encounter"
--- OUTSIDE RECORDS SUMMARY | 2023-06-23 20:13 | External Medical Summary | Summary of Care ---
Author Name Unknown Organization [facility] Address [address] [place] [address] Phone [phone] Care Team Providers Care Internet Project Manager Name Role Phone Cas Bernardo Vásquezclaudia Primary Care Provider Encounter Details Date Type Department Care Team (Late st Contact Info) Description 05/31/2023 Telephone Gynecology/Obstetrics [facility] [address] [place] [address] Kylah Ventura, [facility] [address] [place] [address] Allergies No known active allergiesdocumented as of [...] Additional Information Patient not taking.Reported on 02/09/2023 Yzgrtztvgj-CMSI-Vjf feine 50-300-40 MG Oral Capsule (Fioricet)Indicatio ns:H/O [...] for 1 dose. 1 Each 0 05/31/2023 06/01/2023 Active documented as of this encounter (statuses [...] mRNA, LNP-s, No Pre serve, 2-Dose Series ([employer]) 11/01/2020,10/11/2020 COVID-19, MRNA-LNP, 23-24, P F, 30 MCG/0.3 mL, 12 YRS AND ABOVE, IM ([facility]) 05/11/2023 Covid-19, Mrna, Lnp-s, Pf, B ivalent, 30 Mcg, IM, 12 yrs and above ([employer]) 05/19/2022 PPD 07/18/2019 SEASONAL INFLUENZA, PF, 6 [...] money to get more. Never true 11/12/2022 Stickney Depression Scale Answer Date Recorded Stickney Depression Scale Total 0 05/10/2023 The thought [...] encounter Miscellaneous Notes * Telephone Encounter - Michelle Bauer LPN - 05/31/2023 2:33 PM EDT MyG sent with normal results. * Telephone Encounter - Michelle Bauer LPN - 05/31/2023 2:33 PM EDT ----- Message from Kylah Ventura CNM sent at 05/31/2023 2:31 PM EDT ----- Covering for Susie Reyes. Please let patient know her ultrasound on 05/31/23 showed that baby was head down and fluid level was normal. Thanks! Kylah Ventura CNM documented in this encounter Plan of Treatment Upcoming Encounters Date Type Department Care Team (Late st Contact Info) Description 06/07/2023 3:30 PM EST Office Visit Gynecology/Obstetrics [facility] [address] [place] [address] Amy tSorm PA-C [address] [place] [address] 06/14/2023 3:30 PM EST Office Visit GynecologyObstetrics [facility] [address] [facility], [place] [address] Nevin Irizarry PA-C [address] [place] [address] 06/21/2023 3:30 PM EST Office Visit Gynecology/Obstetrics [facility] [address] [facility], [place] [address] Nevin Irizarry PA-C [address] [place] [address] Health Maintenance Due Date Last Done Comments [...] filedocumented as of this encounter Care Teams Internet Project Manager Relationship Specialty Start Date End Date Bernardo Cardozo DO [address] [place] [address] PCP - General Family Medicine 04/18/20 documented as of this encounter
--- OUTSIDE RECORDS SUMMARY | 2023-06-23 20:14 | External Medical Summary ---
Author Name Unknown Address Unknown Organization K01:[facility] [address] [facility] [address] Laboratory Report Ordering Provider Test Date Status JANEEN HERNÁNDEZ 03/16/2023 08:58:50 Final Observation Date Value Abnormality Reference (Units) Status Streptococcus pyogenes DNA [Presence] in Throat by DAVE with probe detection 03/16/2023 08:58:50 Negative. No Group A Streptococcus detected by PCR (amplified probe). Negative Final This test was developed and its performance characteristics determined by [facility]. It has not been cleared or approved by the FDA. The laboratory is regulated under CLIA as qualified to perform high- complexity testing. This test is used for clinical purposes. It should not be regarded as investigational or for research. Performing Location LABORATORY [place] [address] [address] [facility] [address] [facility] [address]
--- OUTSIDE RECORDS SUMMARY | 2023-06-23 20:14 | External Medical Summary | Summary of Care ---
Author Name Unknown Organization [facility] Address [address] [place] [address] Phone [phone] Care Team Providers Care Clinical Medical Assistant Name Role Phone Bernardo Cardozo DO Primary Care Provider Reason for Visit * Reason Comments Return Visit Encounter Details Date Type Department Care Team Description 02/09/2023 [facility] [address] [place] [address] Ariana Vásquez CRNP [address] [place] [address] Normal in second trimester*; Family history of trisomy 18; History of hemorrhage, currently Allergies No known active allergiesdocumented as of this encounter (statuses as of 02/09/2023) Medications Medication Sig Dispensed Refills Start Date [...] Additional Information Patient not taking.Reported on 02/09/2023 Hezztyyaav-HOAE-Ahq feine 50-300-40 MG Oral Capsule (Fioricet)Indicatio ns:H/O [...] as of this encounter (statuses as of 02/09/2023) Active Problems Problem Noted Date Normal 11/12/2022 History of hemorrhage, curren tly 11/12/2022 Family history of trisomy 18 10/11/2020 Overview: First Baby, delivered at 35w4d. 2022 - low risk Qnatal Migraine 06/13/2019 Estimated Date of Delivery Comme nts Yes 06/23/2023 Based on last me nstrual period of 09/16/2022 documented as of this encounter (statuses as of 02/09/2023) Resolved Problems Problem Noted Date Resolved Date [...] as of this encounter (statuses as of 02/09/2023) Immunizations Name Administration Dates Next Due COVID-19 mRNA, LNP-s, No Pre serve, 2-Dose Series ([employer]) 11/01/2020,10/11/2020 Covid-19, Mrna, Lnp-s, Pf, B ivalent, 30 Mcg, IM, 12 yrs and above (Pfizer) 05/19/2022 PPD 07/18/2019 Seasonal Influenza, Quadriva lent, No Preserve, 6 Mons & Above, IM 05/11/2022,04/22/2021 Seasonal Influenza, Quadriva lent, No Preserve, IM 05/06/2020,05/15/2019,05/20/2018 TDAP (age 10 and older)([employer]) 12/09/2020 documented as of this encounter Social History [...] Sign Reading Time Taken Comments Blood Pressure 102/60 02/09/2023 2:00 PM EDT Pulse - - Temperature - - Respiratory Rate - - Oxygen Saturation - - Inhaled Oxygen Concentration - - Weight 71.7 kg (158 lb) 02/09/2023 2:00 PM EDT Height - - Body Mass Index 24.02 01/11/2023 3:28 PM EDT documented in this encounter Progress Notes * RHODA Brian - 02/09/2023 1:09 PM EDT 20w 6d Anatomy scan today, formal report in process. MSAFP completed, neg screening for ONTD. + movement. No cramping or bleeding. Nausea has resolved, migraines improved. 4 week return RHODA Monson documented in this encounter Plan of Treatment Upcoming Encounters Date Type Specialty Care Team Description 03/15/2023 Office Visit Gynecology Obstetrics Aysha Patel CRNP [address] [place] [phone] 04/12/2023 Office Visit Gynecology Obstetrics Aysha Patel CRNP [address] [place] [phone] Health Maintenance Due Date Last Done Comments Hepatitis B (1 of 3 - 3-dose series) 1990 Pneumococcal Vaccine: Pediatrics (0 to 5 Years) and At-Risk Patients (6 to 64 Years) (1 - PCV) 1996 Depression Screening, Annual for Pts 12 and Over 02/29/2020 02/28/2019 Influenza Vaccine (FLU shot) (#1) 2023 05/11/2022, 04/22/2021, 05/06/2020, Additional history exists Pap Smear 11/13/2027 11/12/2022, 10/28/2018 DTaP,Tdap,and Td Vaccines (2 - Td or Tdap) 12/09/2030 12/09/2020 COVID-19 Vaccine Completed 05/19/2022, 09/2020, 10/11/2020 Hepatitis C Screening Completed 11/12/2022 , 11/12/2022, 11/12/2022 GARDASIL-HPV IMMUNIZATION SERIES Aged Out No longer eligible based on patient's age to complete this topic MENINGOCOCCAL (MENACTRA/MENVEO) Aged Out No longer eligible based on patient's age to complete this topic documented as of this encounter Medical Devices Not on filedocumented as of this encounter Visit Diagnoses Diagnosis Normal in second trimester- Primary Family history of trisomy 18 Family history of genetic disease carrier History of hemorrhage, currently with other poor obstetric history documented in this encounter Care Teams Clinical Medical Assistant Relationship Specialty Start Date End Date Bernardo Cardozo DO [address] [place] [address] PCP - General Family Medicine 04/18/20 documented as of this encounter
--- OUTSIDE RECORDS SUMMARY | 2023-06-23 20:14 | External Medical Summary | Summary of Care ---
Author Name Unknown Organization [facility] Address [address] [place] [address] Phone [phone] Care Team Providers Care Division Chief Name Role Phone Bernardo Cardozoclaudia Primary Care Provider Reason for Visit * Reason Comments Outpatient Testing Encounter Details Date Type Department Care Team Description 04/01/2023 Laboratory Laboratory [address] [place] [address] [facility] [address] [place] [address] Arrived Allergies No known active allergiesdocumented as of this encounter (statuses as of 04/01/2023) Medications Medication Sig Dispensed Refills Start Date [...] Additional Information Patient not taking.Reported on 02/09/2023 Gkcdqvtmnk-LKVD-Mvt feine 50-300-40 MG Oral Capsule (Fioricet)Indicatio ns:H/O [...] as of this encounter (statuses as of 04/01/2023) Active Problems Problem Noted Date Normal 11/12/2022 History of hemorrhage, curren tly 11/12/2022 Family history of trisomy 18 10/11/2020 Overview: First Baby, delivered at 35w4d. 2022 - low risk Qnatal Migraine 06/13/2019 Estimated Date of Delivery Comme nts Yes 06/23/2023 Based on last me nstrual period of 09/16/2022 documented as of this encounter (statuses as of 04/01/2023) Resolved Problems Problem Noted Date Resolved Date [...] as of this encounter (statuses as of 04/01/2023) Immunizations Name Administration Dates Next Due COVID-19 mRNA, LNP-s, No Pre serve, 2-Dose Series (Pfizer) 11/01/2020,10/11/2020 Covid-19, Mrna, Lnp-s, Pf, B ivalent, 30 Mcg, IM, 12 yrs and above (Pfizer) 05/19/2022 PPD 07/18/2019 Seasonal Influenza, PF, 6 mo ns & Above, IM , (Flulaval) 05/11/2022,04/22/2021 Seasonal Influenza, Quadriva lent, No Preserve, [...] on file documented as of this encounter Plan of Treatment Upcoming Encounters Date Type Specialty Care Team Description 04/12/2023 Office Visit Gynecology Obstetrics Aysha Patel CRNP [address] [place] [address] Health Maintenance Due Date Last Done Comments Hepatitis B (1 of 3 - 3-dose series) 1990 Pneumococcal Vaccine: Pediatrics (0 to 5 Years) and At-Risk Patients (6 to 64 Years) (1 - PCV) 1996 Depression Screening, Annual for Pts 12 and Over 02/29/2020 02/28/2019 Influenza Vaccine (FLU shot) (#1) 2023 05/11/2022, 04/22/2021, 05/06/2020, Additional history exists Pap Smear 11/12/2025 11/12/2022, 10/28/2018 Cervical Cancer Screening 11/13/2027 HPV/Co-Test 11/13/2027 11/12/2022 DTaP,Tdap,and Td Vaccines (2 - Td or [...] filedocumented as of this encounter Care Teams Division Chief Relationship Specialty Start Date End Date Bernardo Cardozo DO [address] [place] [address] PCP - General Family Medicine 04/18/20 documented as of this encounter
--- OUTSIDE RECORDS SUMMARY | 2023-06-23 20:14 | External Medical Summary | Summary of Care ---
Author Name Unknown Organization [facility] Address [address] [facility] [place] [address] Phone [phone] Care Team Providers Care Sample Clerk Name Role Phone Bernardo Cardozoclaudia Primary Care Provider Reason for Visit * Reason Onset Date Comments COVID-19 Screening 01/03/2023 Encounter Details Date Type Department Care Team Description 01/03/2023 Telephone COVID19 Screening [facility] DEPT CLOSED 05/13/21 [address] [facility] [place] [id number], Automated Provider COVID-19 Screening Allergies No known active allergiesdocumented as of this encounter (statuses as of 01/03/2023) Medications Medication Sig Dispensed Refills Start Date [...] of Breath. 24 mL 11 08/19/2022 Active Additional Information Patient not taking.Reported on 01/01/2023 Compressor NebulizerIndication s:Mild intermittent asthma with exacerbation Inhale via nebulizer. Use as directed. 1 Each 1 08/19/2022 Active Additional Information Patient not taking.Reported on 01/01/2023 Doxylamine Succinate (Sleep) 25 MG Oral Tablet (Unisom) Take 1 Tablet by mouth at bedtime as needed. 0 Active B-6 100 MG Oral Tablet Take by mouth. 0 Active Ondansetron HCl 8 MG Oral Tablet Take 1 Tablet by mouth every 8 hours as needed for Nausea. 30 Tablet 2 11/25/2022 Active Hquockgddg-OFTB-Atz feine 50-300-40 MG Oral Capsule (Fioricet)Indicatio ns:H/O migraine during Take 1 Capsule by mouth every 4 hours as needed for Headache. 30 Capsule 1 12/29/2022 Active Amoxicillin 500 MG Oral Capsule (Amoxil)Indications :Strep sore throat Take 1 Capsule by mouth in the morning and 1 Capsule before bedtime. Do all this for 10 days. 20 Capsule 0 01/01/2023 01/11/2023 Active B-2-400 400 MG Oral Capsule (Riboflavin) Take 1 Capsule by mouth in the morning. 0 Active Magnesium Oxide 400 (240 Mg) MG Oral Tablet (Mag-Ox) Take 1 Tablet by mouth in the morning. 0 Active CoQ10 200 MG Oral Capsule Take by mouth. 0 Active documented as of this encounter (statuses as of 01/03/2023) Active Problems Problem Noted Date Normal 11/12/2022 History of hemorrhage, curren tly 11/12/2022 Family history of trisomy 18 10/11/2020 Overview: First Baby, delivered at 35w4d. 2022 - low risk Qnatal Migraine 06/13/2019 Estimated Date of Delivery Comme nts Yes 06/23/2023 Based on last me nstrual period of 09/16/2022 documented as of this encounter (statuses as of 01/03/2023) Resolved Problems Problem Noted Date Resolved Date [...] as of this encounter (statuses as of 01/03/2023) Immunizations Name Administration Dates Next Due COVID-19 mRNA, LNP-s, No Pre serve, 2-Dose Series ([employer]) 11/01/2020,10/11/2020 Covid-19, Mrna, Lnp-s, Pf, B ivalent, 30 Mcg, IM, 12 yrs and above ([employer]) 05/19/2022 PPD 07/18/2019 Seasonal Influenza, Quadriva lent, [...] encounter Miscellaneous Notes * Telephone Encounter - Covid Results [facility] - 01/03/2023 10:51 PM EDT Outreach Attempts IVR Call Jan 03 2023 5:05PM Answered - Failed to Authenticate IVR Message: Unsuccessful contact, no education provided documented in this encounter Plan of Treatment Upcoming Encounters Date Type Specialty Care Team Description 01/11/2023 Office Visit Gynecology Obstetrics Kylah Ventura, CN [address] [facility] [place] [address] 02/08/2023 Office Visit Gynecology Obstetrics Aysha Patel CRNP [address] [place] [phone] 03/15/2023 Office Visit Gynecology Obstetrics Aysha Patel CRNP [address] [place] [address] Health Maintenance Due Date Last Done Comments Hepatitis B (1 of 3 - 3-dose series) 1990 Pneumococcal Vaccine: Pediatrics (0 to 5 Years) and At-Risk Patients (6 to 64 Years) (1 - PCV) 1996 Depression Screening, Annual for Pts 12 and Over 02/29/2020 02/28/2019 Pap Smear 11/13/2027 11/12/2022, 10/28/2018 DTaP,Tdap,and Td Vaccines (2 - Td or Tdap) 12/09/2030 12/09/2020 Influenza Vaccine (FLU shot) Completed 05/2022, 04/22/2021, 05/06/2020, Additional history exists COVID-19 Vaccine Completed 05/19/2022, 09/2020, 10/11/2020 Hepatitis C Screening Completed 11/12/2022 , 11/12/2022, 11/12/2022 GARDASIL-HPV IMMUNIZATION SERIES Aged Out No longer eligible based on patient's age to complete this topic MENINGOCOCCAL (MENACTRA/MENVEO) Aged Out No longer eligible based on patient's age to complete this topic documented as of this encounter Medical Devices Not on filedocumented as of this encounter Care Teams Sample Clerk Relationship Specialty Start Date End Date Bernardo Cardozo DO [address] [place] [address] PCP - General Family Medicine 04/18/20 documented as of this encounter
--- OUTSIDE RECORDS SUMMARY | 2023-06-23 20:14 | External Medical Summary | Summary of Care ---
Author Name Unknown Organization [facility] Address [address] [place] [address] Phone [phone] Care Team Providers Care Fruit Harvest Worker Name Role Phone Cas Bernardo Vásquezclaudia Primary Care Provider Reason for Visit * Reason Comments Return Visit Encounter Details Date Type Department Care Team Description 05/03/2023 Office Visit Gynecology/Obstetrics [address] [place] [phone] Aysha Patel CRNP [address] [place] [address] Normal in third trimester*; Family history of trisomy 18; History of hemorrhage, currently Allergies No known active allergiesdocumented as of this encounter (statuses as of 05/03/2023) Medications Medication Sig Dispensed Refills Start Date [...] Additional Information Patient not taking.Reported on 02/09/2023 Mwhzsxwmil-IRBV-Ouc feine 50-300-40 MG Oral Capsule (Fioricet)Indicatio ns:H/O [...] as of this encounter (statuses as of 05/03/2023) Active Problems Problem Noted Date Normal 11/12/2022 History of hemorrhage, curren tly 11/12/2022 Family history of trisomy 18 10/11/2020 Overview: First Baby, delivered at 35w4d. 2022 - low risk Qnatal Migraine 06/13/2019 Estimated Date of Delivery Comme nts Yes 06/23/2023 Based on last me nstrual period of 09/16/2022 documented as of this encounter (statuses as of 05/03/2023) Resolved Problems Problem Noted Date Resolved Date [...] as of this encounter (statuses as of 05/03/2023) Immunizations Name Administration Dates Next Due COVID-19 mRNA, LNP-s, No Pre serve, 2-Dose Series (Cartesian) 11/01/2020,10/11/2020 Covid-19, Mrna, Lnp-s, Pf, B ivalent, 30 Mcg, IM, 12 yrs and above (Pfizer) 05/19/2022 PPD 07/18/2019 SEASONAL INFLUENZA, PF, 6 M & Above, IM , (FLULAVAL or FLUZONE) 05/11/2022,04/22/2021 Seasonal Influenza, Quadriva lent, No Preserve, [...] Sign Reading Time Taken Comments Blood Pressure 100/58 05/03/2023 12:12 PM EDT Pulse - - Temperature - - Respiratory Rate - - Oxygen Saturation - - Inhaled Oxygen Concentration - - Weight 78.9 kg (174 lb) 05/03/2023 12:12 PM EDT Height 172.7 cm (5' 8") 05/03/2023 12:12 PM EDT Body Mass Index 26.46 05/03/2023 12:12 PM EDT documented in this encounter Progress Notes * RHODA Segal - 05/03/2023 12:25 PM EDT 32w5d No concerns. Baby is active. No bleeding or LOF. Occasional BH contractions. RHODA Segal * Cary Dillon LPN - 05/03/2023 12:13 PM EDT 32w5d documented in this encounter Nursing Notes * Cary Dillon LPN - 05/03/2023 12:27 PM EDT 32w5d Denies any issues documented in this encounter Plan of Treatment Upcoming Encounters Date Type Specialty Care Team Description 05/10/2023 Office Visit Gynecology Obstetrics Aysha Patel CRNP [address] [place] [phone] 05/24/2023 Office Visit Gynecology Obstetrics Susie Borden, REYES [address] [place] [phone] 05/31/2023 Office Visit Gynecology Obstetrics Amy Storm PA-C [address] [place] [phone] 06/07/2023 Office Visit Gynecology Obstetrics Amy Storm PA-C [address] [place] [phone] 06/14/2023 Office Visit Gynecology Obstetrics Nevin Irizarry PA-C [address] [place] [address] 06/21/2023 Office Visit Gynecology Obstetrics Nevin Irizarry PA-C [address] [place] [address] Health Maintenance Due Date Last Done Comments Hepatitis B (1 of 3 - 3-dose series) 1990 Pneumococcal Vaccine: Pediatrics (0 to 5 Years) and At-Risk Patients (6 to 64 Years) (1 - PCV) 1996 Depression Screening 02/29/2020 02/28/2019 Influenza Vaccine (FLU shot) (#1) 2023 05/11/2022, 04/22/2021, 05/06/2020, Additional history exists Pap Smear 11/12/2025 11/12/2022, 10/28/2018 Cervical Cancer Screening 11/13/2027 HPV/Co-Test 11/13/2027 11/12/2022 DTaP,Tdap,and Td Vaccines (3 - Td or Tdap) 04/12/2033 04/12/2023, 12/09/2020 COVID-19 Vaccine Completed 05/19/2022, 09/2020, 10/11/2020 GARDASIL-HPV IMMUNIZATION SERIES Aged Out No longer [...] history documented in this encounter Care Teams Fruit Harvest Worker Relationship Specialty Start Date End Date Bernardo Cardozo DO [address] [place] [address] PCP - General Family Medicine 04/18/20 documented as of this encounter
--- OUTSIDE RECORDS SUMMARY | 2023-06-23 20:14 | External Medical Summary | Summary of Care ---
Author Name Unknown Organization [facility] Address [address] [place] [address] Phone [phone] Care Team Providers Care Respiratory Therapy Aide Name Role Phone Bernardo Cardozoclaudia Primary Care Provider Reason for Visit * Reason Onset Date Comments COVID-19 Screening 01/02/2023 Encounter Details Date Type Department Care Team Description 01/02/2023 Telephone COVID19 Screening [facility] DEPT CLOSED 05/13/21 [address] [facility] [place] [id number], Automated Provider COVID-19 Screening Allergies No known active allergiesdocumented as of this encounter (statuses as of 01/02/2023) Medications Medication Sig Dispensed Refills Start Date [...] for Nausea. 30 Tablet 2 11/25/2022 Active Frexyasaer-QBJY-Chx feine 50-300-40 MG Oral Capsule (Fioricet)Indicatio ns:H/O [...] as of this encounter (statuses as of 01/02/2023) Active Problems Problem Noted Date Normal 11/12/2022 History of hemorrhage, curren tly 11/12/2022 Family history of trisomy 18 10/11/2020 Overview: First Baby, delivered at 35w4d. 2022 - low risk Qnatal Migraine 06/13/2019 Estimated Date of Delivery Comme nts Yes 06/23/2023 Based on last me nstrual period of 09/16/2022 documented as of this encounter (statuses as of 01/02/2023) Resolved Problems Problem Noted Date Resolved Date [...] as of this encounter (statuses as of 01/02/2023) Immunizations Name Administration Dates Next Due COVID-19 mRNA, LNP-s, No Pre serve, 2-Dose Series (NI) 11/01/2020,10/11/2020 Covid-19, Mrna, Lnp-s, Pf, B ivalent, 30 Mcg, IM, 12 yrs and above (NI) 05/19/2022 PPD 07/18/2019 Seasonal Influenza, Quadriva lent, [...] encounter Miscellaneous Notes * Telephone Encounter - Kathy Taveras [facility] - 01/02/2023 10:44 PM EDT Outreach Attempts IVR Call Jan 02 2023 5:06PM Voicemail - Voicemail IVR Message: Stephon Nielsen. This is Kanshu calling to let you know you have test results available. You can access this result in your [employer]One account under 'Test & Lab Results'. If you are not enrolled in [employer], you can create an account by going to [email or web address]. You can also call back at [phone] or we will attempt to reach you later tomorrow. documented in this encounter Plan of Treatment Upcoming Encounters Date Type Specialty Care Team Description 01/11/2023 Office Visit Gynecology Obstetrics Kylah Ventura CNM [address] [facility] [place] [phone] 02/08/2023 Office Visit Gynecology Obstetrics Aysha Patel CRNP [address] [place] [address] 03/15/2023 Office Visit Gynecology Obstetrics Aysha Patel CRNP [address] [place] [address] Health Maintenance Due Date Last Done Comments [...] filedocumented as of this encounter Care Teams Respiratory Therapy Aide Relationship Specialty Start Date End Date Bernardo Cardozo DO [address] [place] [address] PCP - General Family Medicine 04/18/20 documented as of this encounter
--- OUTSIDE RECORDS SUMMARY | 2023-06-23 20:14 | External Medical Summary ---
Author Name Unknown Address Unknown Organization K01:[facility] [place] [address] [facility] [place] [address] Laboratory Report Ordering Provider Test Date Status KASI CRAWFORD 04/01/2023 09:55:55 Final Observation Date Value Abnormality Reference (Units ) Status SYNC LEUKOCYTES IN BLOOD BY AUTOMATED COUNT 04/01/2023 09:55:55 8.97 4.00-10.80 (K/uL) Final Segs 04/01/2023 09:55:55 74.5 40.0-75.0 (%) Final Lymphs % 04/01/2023 09:55:55 19.1 18.0-42.0 (%) Final Monos 04/01/2023 09:55:55 4.2 1.0-11.0 (%) Final Eosinophils 04/01/2023 09:55:55 1.2 0.0-6.0 (%) Final Basos 04/01/2023 09:55:55 0.6 0.0-2.0 (%) Final Immature Granulocyte, Percent 04/01/2023 09:55:55 0.4 0.0-2.0 (%) Final Absolute Segs 04/01/2023 09:55:55 6.68 1.80-7.70 (K/uL) Final Lymphs, absolute 04/01/2023 09:55:55 1.71 1.00-4.80 (K/ul) Final Monos, Abs 04/01/2023 09:55:55 0.38 0.00-1.10 (K/uL) Final Eos, Abs 04/01/2023 09:55:55 0.11 0.00-0.70 (K/uL) Final Basos, Abs 04/01/2023 09:55:55 0.05 0.00-0.20 (K/uL) Final Immature Granulocytes, Number 04/01/2023 09:55:55 0.04 0.00-0.20 (K/uL) Final Performing Location [facility] [place] - [address] [facility] [address]
--- OUTSIDE RECORDS SUMMARY | 2023-06-23 20:14 | External Medical Summary | Summary of Care ---
Author Name Unknown Organization [facility] Address [address] [place] [address] Phone [phone] Care Team Providers Care Glass Mold Repairer Name Role Phone Bernardo Cardozo DO Primary Care Provider Reason for Visit * Reason Comments Return Visit Encounter Details Date Type Department Care Team Description 01/11/2023 Office Visit Gynecology/Obstetrics [facility] [address] [facility] [place] [address] Kylah Ventura CNM [address] [facility] [place] [address] Supervision of high-risk , second trimester*; Family history of trisomy 18; History of hemorrhage, currently Allergies No known active allergiesdocumented as of this encounter (statuses as of 01/11/2023) Medications Medication Sig Dispensed Refills Start Date [...] for Nausea. 30 Tablet 2 11/25/2022 Active Oetglwrhtq-OGZA-Fj ffeine 50-300-40 MG Oral Capsule (Fioricet)Indicati ons:H/O [...] Oral Capsule Take by mouth. 0 Active Amoxicillin 500 MG Oral Capsule (Amoxil)Indication s:Strep sore throat Take 1 Capsule by mouth in the morning and 1 Capsule before bedtime. Do all this for 10 days. 20 Capsule 0 01/01/2023 3 Discontinue d(Medicatio n List Clean Up) documented as of this encounter (statuses as of 01/11/2023) Active Problems Problem Noted Date Normal 11/12/2022 History of hemorrhage, curren tly 11/12/2022 Family history of trisomy 18 10/11/2020 Overview: First Baby, delivered at 35w4d. 2022 - low risk Qnatal Migraine 06/13/2019 Estimated Date of Delivery Comme nts Yes 06/23/2023 Based on last me nstrual period of 09/16/2022 documented as of this encounter (statuses as of 01/11/2023) Resolved Problems Problem Noted Date Resolved Date [...] as of this encounter (statuses as of 01/11/2023) Immunizations Name Administration Dates Next Due COVID-19 mRNA, LNP-s, No Pre serve, 2-Dose Series (Nanorex) 11/01/2020,10/11/2020 Covid-19, Mrna, Lnp-s, Pf, B ivalent, [...] Sign Reading Time Taken Comments Blood Pressure 96/56 01/11/2023 3:28 PM EDT Pulse - - Temperature - - Respiratory Rate - - Oxygen Saturation - - Inhaled Oxygen Concentration - - Weight 70.3 kg (155 lb) 01/11/2023 3:28 PM EDT Height 172.7 cm (5' 8") 01/11/2023 3:28 PM EDT Body Mass Index 23.57 01/11/2023 3:28 PM EDT documented in this encounter Progress Notes * Kylah Ventura CNM - 01/11/2023 3:41 PM EDT Gia Priest is a 32 year old female here for her routine OB appointment at 16w5d Her Estimated Date of Delivery: 06/23/23 REVIEW OF SYSTEMS: She has not yet felt movement. Denies vaginal bleeding, LOF, contractions, vision changes, and RUQ pain. Migraines, nausea, and vomiting are all improving and decreasing in frequency. Still taking migraine cocktail: Riboflavin (Vitamin B2) 400mg once daily, Magnesium 400mg twice daily, CoQ10 100mg three times daily. Took fioricet only once. PHYSICAL EXAM: Filed Vitals: 01/11/23 1528 BP: 96/56 Weight: 70.3 kg (155 lb) Height: 1.727 m (5' 8") +FHT 150-160 bpm ASSESSMENT/PLAN: (Z82.79) Family history of trisomy 18 (O09.299) History of hemorrhage, currently (O09.92) Supervision of high-risk , second trimester (primary encounter diagnosis) Plan: -MFM referral was offered due to hx of having a child with Trisomy 18; patient politely declines MFM. - anatomy US due in 4 weeks; ordered and patient to schedule - MSAFP was drawn on 01/08/23; results pending - RTO in 4 weeks Kylah Ventura CNM documented in this encounter Nursing Notes * Christina Rodrigues LPN - 01/11/2023 3:39 PM EDT 16w5d Denies concerns Headaches still persist. documented in this encounter Plan of Treatment Upcoming Encounters Date Type Specialty Care Team Description 02/09/2023 Imaging Radiology 02/09/2023 Office Visit Gynecology Obstetrics Ariana Vásquez CRNP [address] [place] [address] 03/15/2023 Office Visit Gynecology Obstetrics Aysha Patel CRNP [address] [place] [phone] Scheduled Orders Name Type Priority Associated Diagnoses Orde r Schedule US PREG SINGLE/1ST GEST, 14 WEEKS OR LATER Medical Imaging Routine Expected: 2022 (Approximate), Expires: 02/11/2024 Health Maintenance Due Date Last Done Comments [...] as of this encounter Visit Diagnoses Diagnosis Supervision of high-risk , second trimester- Primary Family history of trisomy 18 Family history of genetic disease carrier History of hemorrhage, currently with other poor obstetric history documented in this encounter Care Teams Glass Mold Repairer Relationship Specialty Start Date End Date Bernardo Cardozo DO [address] [place] [address] PCP - General Family Medicine 04/18/20 documented as of this encounter
--- OUTSIDE RECORDS SUMMARY | 2023-06-23 20:14 | External Medical Summary | Summary of Care ---
Author Name Unknown Organization [facility] Address [address] [place] [address] Phone [phone] Care Team Providers Care Senior Game Advisor Name Role Phone Cas Bernardo Vásquezclaudia Primary Care Provider Encounter Details Date Type Department Care Team Description 05/11/2023 Immunization Ancillary [facility] [address] [place] [phone] [place], Covid19 Vaccine [address] [place] [phone] Allergies No known active allergiesdocumented as of this encounter (statuses as of 05/11/2023) Medications Medication Sig Dispensed Refills Start Date [...] Additional Information Patient not taking.Reported on 02/09/2023 Yojgykzgrh-ESSM-Kgv feine 50-300-40 MG Oral Capsule (Fioricet)Indicatio ns:H/O [...] as of this encounter (statuses as of 05/11/2023) Active Problems Problem Noted Date Normal 11/12/2022 History of hemorrhage, curren tly 11/12/2022 Family history of trisomy 18 10/11/2020 Overview: First Baby, delivered at 35w4d. 2022 - low risk Qnatal Migraine 06/13/2019 Estimated Date of Delivery Comme nts Yes 06/23/2023 Based on last me nstrual period of 09/16/2022 documented as of this encounter (statuses as of 05/11/2023) Resolved Problems Problem Noted Date Resolved Date [...] as of this encounter (statuses as of 05/11/2023) Immunizations Name Administration Dates Next Due COVID-19 mRNA, LNP-s, No Pre serve, 2-Dose Series (AddMyBest) 11/01/2020,10/11/2020 COVID-19, MRNA-LNP, PF, 30 M CG/0.3 mL, 12 yrs and above, IM (AddMyBest) 05/11/2023 Covid-19, Mrna, Lnp-s, Pf, B ivalent, [...] Description 05/24/2023 Office Visit Gynecology Obstetrics Susie Borden CNM [address] [place] [phone] 05/31/2023 Office Visit Gynecology Obstetrics Amy Storm PA-C [address] [place] [address] 06/07/2023 Office Visit Gynecology Obstetrics Amy Storm PA-C [address] [place] [address] 06/14/2023 Office Visit Gynecology Obstetrics Nevin Irizarry PA-C [address] [address] 06/21/2023 Office Visit Gynecology Obstetrics Nevin Irizarry PA-C [address] [phone] Health Maintenance Due Date Last Done Comments Hepatitis B (1 of 3 - 3-dose series) 1990 Pneumococcal Vaccine: Pediatrics (0 to 5 Years) and At-Risk Patients (6 to 64 Years) (1 - PCV) 1996 Depression Screening 02/29/2020 02/28/2019 COVID-19 Vaccine (4 - 24 season) 2023 05/11/2023, 05/19/2022, 11/01/2020, Additional history exists Pap Smear 11/12/2025 11/12/2022, 10/28/2018 Cervical Cancer Screening 11/13/2027 HPV/Co-Test 11/13/2027 11/12/2022 DTaP,Tdap,and Td Vaccines (3 - Td or Tdap) 04/12/2033 04/12/2023, 12/09/2020 Influenza Vaccine (FLU shot) Completed 11/2022, 05/11/2022, 04/22/2021, Additional history exists GARDASIL-HPV IMMUNIZATION SERIES Aged Out No longer eligible based on patient's age to complete this topic MENINGOCOCCAL (MENACTRA/MENVEO) Aged Out No longer eligible based on patient's age to complete this topic documented as of this encounter Medical Devices Not on filedocumented as of this encounter Care Teams Senior Game Advisor Relationship Specialty Start Date End Date Bernardo Cardozo DO [address] [place] [address] PCP - General Family Medicine 04/18/20 documented as of this encounter
--- OUTSIDE RECORDS SUMMARY | 2023-06-23 20:14 | External Medical Summary | Summary of Care ---
Author Name Unknown Organization [facility] Address [address] [place] [address] Phone [phone] Care Team Providers Care Contract Attorney Name Role Phone Bernardo Cardozoclaudia Primary Care Provider Encounter Details Date Type Department Care Team Description 01/01/2023 Nurse Only Ancillary [address] [place] [address] [facility] Nurse [address] [place] [phone] Allergies No known active allergiesdocumented as of this encounter (statuses as of 01/01/2023) Medications Medication Sig Dispensed Refills Start Date [...] for Nausea. 30 Tablet 2 11/25/2022 Active Qhenewmbpb-RTVT-Lvq feine 50-300-40 MG Oral Capsule (Fioricet)Indicatio ns:H/O migraine during Take 1 Capsule by mouth every 4 hours as needed for Headache. 30 Capsule 1 12/29/2022 Active Amoxicillin 500 MG Oral Capsule (Amoxil)Indications :Strep sore throat Take 1 Capsule by mouth in the morning and 1 Capsule before bedtime. Do all this for 10 days. 20 Capsule 0 01/01/2023 01/11/2023 Active documented as of this encounter (statuses as of 01/01/2023) Active Problems Problem Noted Date Normal 11/12/2022 History of hemorrhage, curren tly 11/12/2022 Family history of trisomy 18 10/11/2020 Overview: First Baby, delivered at 35w4d. 2022 - low risk Qnatal Migraine 06/13/2019 Estimated Date of Delivery Comme nts Yes 06/23/2023 Based on last me nstrual period of 09/16/2022 documented as of this encounter (statuses as of 01/01/2023) Resolved Problems Problem Noted Date Resolved Date [...] as of this encounter (statuses as of 01/01/2023) Immunizations Name Administration Dates Next Due COVID-19 mRNA, LNP-s, No Pre serve, 2-Dose Series ([employer]) 11/01/2020,10/11/2020 Covid-19, Mrna, Lnp-s, Pf, B ivalent, [...] on file documented as of this encounter Nursing Notes * YOVANY Tovar - 01/01/2023 10:39 AM EDT Patient here for strep test. documented in this encounter Plan of Treatment Upcoming Encounters Date Type Specialty Care Team Description 01/01/2023 Telemedicine Family Medicine Rajinder Alonso DO [address] [place] [address] 01/11/2023 Office Visit Gynecology Obstetrics Kylah Ventura, [facility] [address] 02/08/2023 Office Visit Gynecology Obstetrics Aysha Patel CRNP [address] [place] [address] 03/15/2023 Office Visit Gynecology Obstetrics Aysha Patel CRNP [address] [place] [address] Pending Results Name Type Priority Associated Diagnoses Date /Time SARS-COV-2 (COVID-19), NAAT Lab Routine Strep sore throat 01/01/2023 8:23 AM EDT Health Maintenance Due Date Last Done Comments [...] as of this encounter Visit Diagnoses Diagnosis Strep sore throat- Primary Streptococcal sore throat documented in this encounter Care Teams Contract Attorney Relationship Specialty Start Date End Date Bernardo Cardozo DO [address] [place] [address] PCP - General Family Medicine 04/18/20 documented as of this encounter
--- OUTSIDE RECORDS SUMMARY | 2023-06-23 20:14 | External Medical Summary ---
Author Name Unknown Address Unknown Organization : Laboratory Report Ordering Provider Test Date Status KASI CRAWFORD 01/08/2023 15:51:10 Final Observation Date Value Abnormality Reference (Units ) Status INTERPRETATION 01/08/2023 15:51:10 SEE BELOW Final Screen negative for open NTD . RISK FOR ONTD 01/08/2023 15:51:10 <1:5000 Final CALC'D GESTATIONAL AGE 0601/08/2023 15:51:10 16.3 Final AFP, SERUM 01/08/2023 15:51:10 44.4 (ng/mL) Final AFP MOM 01/08/2023 15:51:10 1.26 Final Reference Range:
NTD <2 .50
IDD <1.90
TWINS <4.00
TWINS IDD <3.50
TRIPLETS <4.50
The AFP test result indicates that this patient is
screen negative for open NTD. It should be noted
that normal test results can never guarantee the
of a normal baby and that 2-3% of newborns
have some type of physical or mental defect, many
of which are undetectable through any known
diagnostic technique.
This is a screening test, not a diagnostic test.
This risk assessment report is based in part on
demographic data provided by the ordering
physician. Please notify the laboratory promptly
if any data are incorrect. For assistance with
recalculations, please call your local [facility] laboratory. For assistance with
interpretation of these results, please contact
your Local [facility] genetic counselor or
call [phone] ([phone]).
Interpretive Cutoffs
Screen Positive for Open NTD:
> or = 2.50 adjusted MOM
> or = 1.90 adjusted MOM for insulin- dependent diabetics
> or = 4.00 adjusted MOM for twins
> or = 3.50 adjusted MOM for twins insulin-dependent diabetics
> or = 4.50 adjusted MOM for triplets
For additional information, please refer to
[email or web address]
(This link is being provided for
informational/educational purposes only.) DATE OF 01/08/2023 15:51:10 1990 Final COLLECTION DATE 01/08/2023 15:51:10 01/08/2023 Final MATERNAL WEIGHT 01/08/2023 15:51:10 148 (lbs ) Final EST'D DATE OF DELIVERY 01/08/2023 15:51:10 06/23/2023 Final DEEP DETERMINED BY 01/08/2023 15:51:10 LMP Final MOTHER'S ETHNIC ORIGIN 01/08/2023 15:51:10 WHITE Final NUMBER OF FETUSES 01/08/2023 15:51:10 1 Final INSULIN DEPEND DIABETIC 01/08/2023 15:51:10 NO Final REPEAT SPECIMEN 01/08/2023 15:51:10 NO Final HX OF NEURAL TUBE DEFECTS 01/08/2023 15:51:10 NO Final PREV DOWN SYND 01/08/2023 15:51:10 NO Final DONOR EGG 01/08/2023 15:51:10 NO Final DONOR AGE: EGG RETRIEVAL 01/08/2023 15:51:10 NOT GIVEN Final Test performed by [facility]
[id number],
[place] [address]

[employer] Developer: Briana Peres MD,PHD,KUN
Test Reported by [facility],
[facility],
[address] [place], [place]
Law Hilton M.D., Ph.D., Director of Laboratories
, CLIA [id number] Performing Location
--- OUTSIDE RECORDS SUMMARY | 2023-06-23 20:14 | External Medical Summary | Summary of Care ---
Author Name Unknown Organization [facility] Address [address] [place] [address] Phone [phone] Care Team Providers Care Fender Mechanic Apprentice Name Role Phone Cas Bernardo Vásquezclaudia Primary Care Provider Reason for Visit * Reason Comments Return Visit Encounter Details Date Type Department Care Team Description 04/19/2023 Office Visit Gynecology/Obstetrics [address] [place] [address] Aysha Patel CRNP [address] [place] [address] Normal in third trimester*; Family history of trisomy 18; History of hemorrhage, currently Allergies No known active allergiesdocumented as of this encounter (statuses as of 04/19/2023) Medications Medication Sig Dispensed Refills Start Date [...] Additional Information Patient not taking.Reported on 02/09/2023 Ugnsgfjcxd-BDIW-Pfl feine 50-300-40 MG Oral Capsule (Fioricet)Indicatio ns:H/O [...] as of this encounter (statuses as of 04/19/2023) Active Problems Problem Noted Date Normal 11/12/2022 History of hemorrhage, curren tly 11/12/2022 Family history of trisomy 18 10/11/2020 Overview: First Baby, delivered at 35w4d. 2022 - low risk Qnatal Migraine 06/13/2019 Estimated Date of Delivery Comme nts Yes 06/23/2023 Based on last me nstrual period of 09/16/2022 documented as of this encounter (statuses as of 04/19/2023) Resolved Problems Problem Noted Date Resolved Date [...] as of this encounter (statuses as of 04/19/2023) Immunizations Name Administration Dates Next Due COVID-19 [...] Reading Time Taken Comments Blood Pressure 100/58 04/19/2023 8:30 AM EDT Pulse - - Temperature - - Respiratory Rate - - Oxygen Saturation - - Inhaled Oxygen Concentration - - Weight 77.5 kg (170 lb 12.8 oz) 04/19/2023 8:30 AM EDT Height 172.7 cm (5' 8") 04/19/2023 8:30 AM EDT Body Mass Index 25.97 04/19/2023 8:30 AM EDT documented in this encounter Progress Notes * RHODA Segal - 04/19/2023 9:15 AM EDT 30w5d No concerns. Baby is active. No bleeding or LOF. Edema controlled with compression stockings. RHODA Segal * Mary Varner LPN - 04/19/2023 8:54 AM EDT 30w5d Pt denies any concerns. documented in this encounter Plan of Treatment Upcoming Encounters Date Type Specialty Care Team Description 05/03/2023 Office Visit Gynecology Obstetrics Aysha Patel CRNP [address] [facility] [place] [address] 05/10/2023 Office Visit Gynecology Obstetrics Aysha Patel CRNP [address] [place] [phone] Health Maintenance Due Date Last Done Comments [...] history documented in this encounter Care Teams Fender Mechanic Apprentice Relationship Specialty Start Date End Date Bernardo Cardozo DO [address] [place] [address] PCP - General Family Medicine 04/18/20 documented as of this encounter
--- OUTSIDE RECORDS SUMMARY | 2023-06-23 20:14 | External Medical Summary | Summary of Care ---
Author Name Unknown Organization [facility] Address [address] [place] [address] Phone [phone] Care Team Providers Care Wash And Greaser Name Role Phone Bernardo Cardozoclaudia Primary Care Provider Encounter Details Date Type Department Care Team Description 05/18/2023 Telephone Gynecology/Obstetrics Ben Sauceda [address] [place] [address] Aysha Patel CRNP [address] [facility] [address] Allergies No known active allergiesdocumented as of this encounter (statuses as of 05/18/2023) Medications Medication Sig Dispensed Refills Start Date [...] Additional Information Patient not taking.Reported on 02/09/2023 Gkqfvqxliq-AIMD-Vjp feine 50-300-40 MG Oral Capsule (Fioricet)Indicatio ns:H/O [...] as of this encounter (statuses as of 05/18/2023) Active Problems Problem Noted Date Normal 11/12/2022 History of hemorrhage, curren tly 11/12/2022 Family history of trisomy 18 10/11/2020 Overview: First Baby, delivered at 35w4d. 2022 - low risk Qnatal Migraine 06/13/2019 Estimated Date of Delivery Comme nts Yes 06/23/2023 Based on last me nstrual period of 09/16/2022 documented as of this encounter (statuses as of 05/18/2023) Resolved Problems Problem Noted Date Resolved Date [...] as of this encounter (statuses as of 05/18/2023) Immunizations Name Administration Dates Next Due COVID-19 mRNA, LNP-s, No Pre serve, 2-Dose Series ([employer]) 11/01/2020,10/11/2020 COVID-19, MRNA-LNP, 23-24, P F, 30 MCG/0.3 mL, 12 YRS AND ABOVE, IM ([facility]) 05/11/2023 Covid-19, Mrna, Lnp-s, Pf, B ivalent, 30 Mcg, IM, 12 yrs and above ([employer]) 05/19/2022 PPD 07/18/2019 SEASONAL INFLUENZA, PF, 6 [...] we have tried to do PA with P insurance and they are not able to [...] stating she spoke with her Pharmacy ( [facility]) about theRSV vaccine. She states was advised to call office to inform that they are sending over the start of the prior auth for this to be covered. Pt is seen in [facility] office - had him send to [facility]. Pt currently 34 weeks 6 days . Sary Garcia LPN 05/18/2023 3:45 PM documented in this encounter Plan of Treatment Upcoming Encounters Date Type Specialty Care Team Description 05/24/2023 Office Visit Gynecology Obstetrics Susie Borden, CNM [address] [place], [place] [id number] 05/31/2023 Office Visit Gynecology Obstetrics Amy Storm PA-C [address] [place] [id number] 06/07/2023 Office Visit Gynecology Obstetrics Amy Storm PA-C [address] [place] [id number] 06/14/2023 Office Visit Gynecology Obstetrics Nevin Irizarry PA-C [address] [place] [address] 06/21/2023 Office Visit Gynecology Obstetrics Nevin Irizarry PA-C [address] [place] [address] Health Maintenance Due Date Last Done Comments [...] filedocumented as of this encounter Care Teams Wash And Greaser Relationship Specialty Start Date End Date Bernardo Cardozo DO [address] [place] [address] PCP - General Family Medicine 04/18/20 documented as of this encounter
--- OUTSIDE RECORDS SUMMARY | 2023-06-23 20:14 | External Medical Summary | Summary of Care ---
Author Name Unknown Organization [facility] Address [address] [place] [address] Phone [phone] Care Team Providers Care Slipcover Cutter Name Role Phone Cas Bernardo Vásquezclaudia Primary Care Provider Reason for Visit * Reason Comments Return Visit Encounter Details Date Type Department Care Team Description 05/10/2023 Office Visit Gynecology/Obstetrics [address] [place] [id number] Aysha Patel CRNP [address] [place] [address] Normal in third trimester*; Family history of trisomy 18; History of hemorrhage, currently Allergies No known active allergiesdocumented as of this encounter (statuses as of 05/10/2023) Medications Medication Sig Dispensed Refills Start Date [...] Additional Information Patient not taking.Reported on 02/09/2023 Lsvvawqkre-HNTP-Qaq feine 50-300-40 MG Oral Capsule (Fioricet)Indicatio ns:H/O [...] as of this encounter (statuses as of 05/10/2023) Active Problems Problem Noted Date Normal 11/12/2022 History of hemorrhage, curren tly 11/12/2022 Family history of trisomy 18 10/11/2020 Overview: First Baby, delivered at 35w4d. 2022 - low risk Qnatal Migraine 06/13/2019 Estimated Date of Delivery Comme nts Yes 06/23/2023 Based on last me nstrual period of 09/16/2022 documented as of this encounter (statuses as of 05/10/2023) Resolved Problems Problem Noted Date Resolved Date [...] as of this encounter (statuses as of 05/10/2023) Immunizations Name Administration Dates Next Due COVID-19 mRNA, LNP-s, No Pre serve, 2-Dose Series ([employer]) 11/01/2020,10/11/2020 Covid-19, Mrna, Lnp-s, Pf, B ivalent, [...] Reading Time Taken Comments Blood Pressure 100/58 05/10/2023 9:08 AM EDT Pulse - - Temperature - - Respiratory Rate - - Oxygen Saturation - - Inhaled Oxygen Concentration - - Weight 80.3 kg (177 lb) 05/10/2023 9:08 AM EDT Height 172.7 cm (5' 8") 05/10/2023 9:08 AM EDT Body Mass Index 26.91 05/10/2023 9:08 AM EDT documented in this encounter Progress Notes * RHODA Segal - 05/10/2023 9:28 AM EDT 33w5d Having BH contractions when walking in the evenings, planning to shorten her walks. No other concerns. Baby is moving well. No bleeding or LOF. 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 RHODA Segal * Mary Varner LPN - 05/10/2023 9:10 AM EDT 33w5d Pt denies any concerns, labor instructions given. documented in this encounter Plan of Treatment Upcoming Encounters Date Type Specialty Care Team Description 05/24/2023 Office Visit Gynecology Obstetrics Susie Borden, CNM [address] [place] [phone] 05/31/2023 Office Visit Gynecology Obstetrics Amy Storm PA-C [address] [place] [phone] 06/07/2023 Office Visit Gynecology Obstetrics Amy Storm PA-C [address] [place] [phone] 06/14/2023 Office Visit Gynecology Obstetrics Nevin Irizarry PA-C [address] [place] [address] 06/21/2023 Office Visit Gynecology Obstetrics Nevin Irizarry PA-C [address] [place] [address] Health Maintenance Due Date Last Done Comments Hepatitis B (1 of 3 - 3-dose series) 1990 Pneumococcal Vaccine: Pediatrics (0 to 5 Years) and At-Risk Patients (6 to 64 Years) (1 - PCV) 1996 Depression Screening 02/29/2020 02/28/2019 COVID-19 Vaccine (24 season) 2023 05/19/2022, 11/01/2020, 10/11/2020 Pap Smear 11/12/2025 11/12/2022, 10/28/2018 Cervical Cancer [...] history documented in this encounter Care Teams Slipcover Cutter Relationship Specialty Start Date End Date Bernardo Cardozo DO [address] [place] [address] PCP - General Family Medicine 04/18/20 documented as of this encounter
--- OUTSIDE RECORDS SUMMARY | 2023-06-23 20:14 | External Medical Summary | Summary of Care ---
Author Name Unknown Organization [facility] Address [address] [facility] [place] [address] Phone [phone] Care Team Providers Care Talent Development Analyst Name Role Phone Cardozo Bernardo Vásquezclaudia DO Primary Care Provider Reason for Visit * Reason Comments Forms Request FMLA due to migraine s Encounter Details Date Type Department Care Team Description 01/01/2023 Telemedicine Family Practice [facility] [address] [place] [address] Rajinder Alonso DO [address] [place] [address] Migraine with aura and without status migrainosus, not intractable*; 15 weeks gestation of ; Strep tonsillitis Allergies No known active allergiesdocumented as of this encounter (statuses as of 01/17/2023) Medications Medication Sig Dispensed Refills Start Date [...] for Nausea. 30 Tablet 2 11/25/2022 Active Vpzodzxmqx-KCFX-Xv ffeine 50-300-40 MG Oral Capsule (Fioricet)Indicati ons:H/O [...] as of this encounter (statuses as of 01/17/2023) Active Problems Problem Noted Date Normal 11/12/2022 History of hemorrhage, curren tly 11/12/2022 Family history of trisomy 18 10/11/2020 Overview: First Baby, delivered at 35w4d. 2022 - low risk Qnatal Migraine 06/13/2019 Estimated Date of Delivery Comme nts Yes 06/23/2023 Based on last me nstrual period of 09/16/2022 documented as of this encounter (statuses as of 01/17/2023) Resolved Problems Problem Noted Date Resolved Date [...] as of this encounter (statuses as of 01/17/2023) Immunizations Name Administration Dates Next Due COVID-19 mRNA, LNP-s, No Pre serve, 2-Dose Series ([employer]) 11/01/2020,10/11/2020 Covid-19, Mrna, Lnp-s, Pf, B ivalent, [...] on file documented as of this encounter Progress Notes * Rajinder Alonso, - 01/01/2023 4:12 PM EDT Images from the original note were not included. History of Present Illness Gia Priest is a 32 year old female that presents for Forms Request (FMLA due to migraines) Patient is a 32-year-old female with complaint of chronic intermittent migraine headaches with nausea and photophobia. Patient complains of increased frequency of migraine headaches during with debilitating headaches occurring approximately once per month.. Patient is 15 weeks . Patient taking daily riboflavin, magnesium, and coenzyme Q10. Patient taking Fioricet p.r.n.. Patientpatient tested positive today for strep tonsillitis and is prescribed amoxicillin 500 mg twice daily times 10 days. Patient denies cough or sputum. Patient denies chest pain shortness breath palpitations or edema. Patient denies abdominal pain nausea vomiting diarrhea constipation. Patient denies urinary frequency dysuria urgency or hematuria. Patient denies neck or back pain, joint pain or swelling. Patient denies headache dizziness weakness or numbness. Patient denies skin rash or lesions. Review systems otherwise negative Physical Exam There were no vitals filed for this visit. BP Readings from Last 3 Encounters: 01/11/23 96/56 12/14/22 100/58 11/12/22 104/62 Wt Readings from Last 3 Encounters: 01/11/23 70.3 kg (155 lb) 12/14/22 67.6 kg (149 lb) 11/12/22 64 kg (141 lb) BMI Readings from Last 3 Encounters: 01/11/23 23.57 kg/m 12/14/22 22.66 kg/m 11/12/22 21.44 kg/m General: alert, healthy and no distress Head: Normocephalic, No masses, lesions, tenderness or abnormalities Eye Exam: PERRLA, extraocular movements intact, conjunctiva are pink and non- injected, sclera clear Skin: skin color, texture, turgor are normal, no rashes or significant lesions Physical exam limited due to telemedicine visit I have reviewed the following results: None Assessment and Plan Migraine with aura and without status migrainosus, not intractable Continue present medical therapy Riboflavin 400 mg 1 tab once daily Magnesium 4 mg 1 tab once daily Coenzyme Q10 200 mg 1 cap once daily Fioricet 1 cap q.4 hours p.r.n. migraine FMLA completion per request 15 weeks gestation of Continue care Follow with verify rep Strep tonsillitis Finish amoxicillin 500 mg 1 tab twice daily times 10 days Continue supportive care Wrap-Up Time: I spent a total of 20-29 minutes (exact time 20 mins) on the date of service in preparation, delivery, and documentation of the care provided to Gia Priest excluding any time spent in the performance of separately billed services. Telemedicine: Patient location: HOME. I was in a hospital or clinic location. After connecting through televideo,patient was verified with two unique identifiers. Patient (or authorized legal authorization representative) was then informed that this was a Telemedicine visit and being conducted confidentially over secure lines. Methods to assure confidentiality were taken. Patient acknowledged consent and understanding of pr ivacy and security of the Telemedicine visit. The patient agreed to participate. documented in this encounter Nursing Notes * Presley Burgos RN - 01/01/2023 3:53 PM EDT Chief Complaint Patient presents with Forms Request FMLA due to migraines documented in this encounter Plan of Treatment Upcoming Encounters Date Type Specialty Care Team Description 02/09/2023 Imaging Radiology 02/09/2023 Office Visit Gynecology Obstetrics Ariana Vásquez CRNP [address] [place] [phone] 03/15/2023 Office Visit Gynecology Obstetrics Aysha Patel CRNP [address] [place] [address] Health Maintenance Due Date Last Done Comments [...] as of this encounter Visit Diagnoses Diagnosis Migraine with aura and without status migrainosus, not intractable- Primary Migraine with aura, without mention of intractable migraine without mention of status migrainosus 15 weeks gestation of state, incidental Strep tonsillitis Streptococcal sore throat documented in this encounter Care Teams Talent Development Analyst Relationship Specialty Start Date End Date Bernardo Cardozo DO [address] [place] [address] PCP - General Family Medicine 04/18/20 documented as of this encounter
--- OUTSIDE RECORDS SUMMARY | 2023-06-23 20:14 | External Medical Summary | Summary of Care ---
Author Name Unknown Organization [facility] Address [address] [place] [address] Phone [phone] Care Team Providers Care Briquette Machine Operator Helper Name Role Phone Cas Bernardo Vásquezclaudia Primary Care Provider Reason for Visit * Reason Comments Outpatient Testing Encounter Details Date Type Department Care Team Description 01/08/2023 Laboratory Laboratory [address] [place] [address] [facility] [address] [place] [address] Normal in first trimester Allergies No known active allergiesdocumented as of this encounter (statuses as of 01/08/2023) Medications Medication Sig Dispensed Refills Start Date [...] for Nausea. 30 Tablet 2 11/25/2022 Active Ivdeoopobv-ZXXQ-Muv feine 50-300-40 MG Oral Capsule (Fioricet)Indicatio ns:H/O [...] as of this encounter (statuses as of 01/08/2023) Active Problems Problem Noted Date Normal 11/12/2022 History of hemorrhage, curren tly 11/12/2022 Family history of trisomy 18 10/11/2020 Overview: First Baby, delivered at 35w4d. 2022 - low risk Qnatal Migraine 06/13/2019 Estimated Date of Delivery Comme nts Yes 06/23/2023 Based on last me nstrual period of 09/16/2022 documented as of this encounter (statuses as of 01/08/2023) Resolved Problems Problem Noted Date Resolved Date [...] as of this encounter (statuses as of 01/08/2023) Immunizations Name Administration Dates Next Due COVID-19 mRNA, LNP-s, No Pre serve, 2-Dose Series ([employer]) 11/01/2020,10/11/2020 Covid-19, Mrna, Lnp-s, Pf, B ivalent, 30 Mcg, IM, 12 yrs and above ([employer]) 05/19/2022 PPD 07/18/2019 Seasonal Influenza, Quadriva lent, [...] Visit Gynecology Obstetrics Kylah Ventura, CN [address] [place] [address] 02/08/2023 Office Visit Gynecology Obstetrics Aysha Patel CRNP [address] [place] [address] 03/15/2023 Office Visit Gynecology Obstetrics Aysha Patel CRNP [address] [place] [address] Pending Results Name Type Priority Associated Diagnoses Date /Time MATERNAL SERUM AFP Lab Routine Normal in first trimester 01/08/2023 3:51 PM EDT Health Maintenance Due Date Last Done [...] this encounter Visit Diagnoses Diagnosis Normal in first trimester documented in this encounter Care Teams Briquette Machine Operator Helper Relationship Specialty Start Date End Date Bernardo Cardozo DO [address] [place] [address] PCP - General Family Medicine 04/18/20 documented as of this encounter
--- OUTSIDE RECORDS SUMMARY | 2023-06-23 20:14 | External Medical Summary ---
Author Name Unknown Address Unknown Organization K[facility] [place] [address] [place] [address] Laboratory Report Ordering Provider Test Date Status KASI CRAWFORD 04/01/2023 09:55:55 Final Observation Date Value Abnormality Reference (Units ) Status Glucose [Moles/volume] in Serum or Plasma --1 hour post 50 g glucose PO 04/01/2023 09:55:55 123 70-129 (mg/dL) Final Performing Location [facility] [place] [address] [place] [address]
--- OUTSIDE RECORDS SUMMARY | 2023-06-23 20:14 | External Medical Summary | Summary of Care ---
Author Name Unknown Organization [facility] Address [address] [place] [address] Phone [phone] Care Team Providers Care Proof Machine Operator Name Role Phone Cardozo Bernardo Vásquezclaudia Primary Care Provider Reason for Visit * Reason Comments Return Visit Encounter Details Date Type Department Care Team Description 04/12/2023 Office Visit Gynecology/Obstetrics [address] [place] [address] Aysha Patel CRNP [address] [place] [address] Normal in third trimester*; Family history of trisomy 18; History of hemorrhage, currently ; Need for prophylactic vaccination with combined quvucebrvj-ffkxmzn-huc tussis (DTP) vaccine Allergies No known active allergiesdocumented as of this encounter (statuses as of 04/12/2023) Medications Medication Sig Dispensed Refills Start Date [...] Additional Information Patient not taking.Reported on 02/09/2023 Clyszxsbjj-DIGZ-Gol feine 50-300-40 MG Oral Capsule (Fioricet)Indicatio ns:H/O [...] as of this encounter (statuses as of 04/12/2023) Active Problems Problem Noted Date Normal 11/12/2022 History of hemorrhage, curren tly 11/12/2022 Family history of trisomy 18 10/11/2020 Overview: First Baby, delivered at 35w4d. 2022 - low risk Qnatal Migraine 06/13/2019 Estimated Date of Delivery Comme nts Yes 06/23/2023 Based on last me nstrual period of 09/16/2022 documented as of this encounter (statuses as of 04/12/2023) Resolved Problems Problem Noted Date Resolved Date [...] as of this encounter (statuses as of 04/12/2023) Immunizations Name Administration Dates Next Due COVID-19 mRNA, LNP-s, No Pre serve, 2-Dose Series ([employer]) 11/01/2020,10/11/2020 Covid-19, Mrna, Lnp-s, Pf, B ivalent, [...] Sign Reading Time Taken Comments Blood Pressure 100/60 04/12/2023 11:45 AM EDT Pulse - - Temperature - - Respiratory Rate - - Oxygen Saturation - - Inhaled Oxygen Concentration - - Weight 77.5 kg (170 lb 12.8 oz) 023 11:45 AM EDT Height 172.7 cm (5' 8") 04/12/2023 11:4 5 AM EDT Body Mass Index 25.97 04/12/2023 11:45 AM EDT documented in this encounter Progress Notes * RHODA Segal - 04/12/2023 12:07 PM EDT 29w5d Complaints: varicosities of BLE. Wearing thigh high compression stockings. Feeling well otherwise. Good FM. No contractions, bleeding, or LOF. TDAP today. RHODA Segal * Mary Varner LPN - 04/12/2023 11:47 AM EDT 29w5d Pt denies any concerns. documented in this encounter Nursing Notes * Mary Varner LPN - 04/12/2023 12:10 PM EDT Patient here for tdap injection. Patient doing well no complaints. Injection given IM as ordered. Patient tolerated well. Patient to follow up as directed. Patient instructed to call if any complications. Patient verbalized understanding of instructions given. Injection site: Left Deltoid Medication Source: Dispensed stock medication documented in this encounter Plan of Treatment Upcoming Encounters Date Type Specialty Care Team Description 04/19/2023 Office Visit Gynecology Obstetrics Aysha Patel CRNP [address] [place] [address] 05/03/2023 Office Visit Gynecology Obstetrics Aysha Patel CRNP [address] [place] [address] 05/10/2023 Office Visit Gynecology Obstetrics Aysha Patel CRNP [address] [place] [address] Health Maintenance Due Date Last Done Comments [...] hemorrhage, currently with other poor obstetric history Need for prophylactic vaccination with combined qpztbxjgkw-xofucje-ytxohxorl (DTP) vaccine documented in this encounter Care Teams Proof Machine Operator Relationship Specialty Start Date End Date Bernardo Cardozo DO [address] [place] [address] PCP - General Family Medicine 04/18/20 documented as of this encounter
--- OUTSIDE RECORDS SUMMARY | 2023-06-23 20:14 | External Medical Summary ---
Author Name Unknown Address Unknown Organization K01[place] [facility] [place] [address] [facility] [address] Laboratory Report Ordering Provider Test Date Status KASI CRAWFORD 04/01/2023 09:55:55 Final Observation Date Value Abnormality Reference (Units ) Status Treponema pallidum Ab [Presence] in Serum by Immunoassay 04/01/2023 09:55:55 Nonreactive Nonreactive Final No serologic evidence of syp hilis. No additional testing clinicially indicated at this time. Consider repeat testing in 2-4 weeks if acute or primary syphilis is suspected. Performing Location [facility] [place] [address] [place] [address]
--- OUTSIDE RECORDS SUMMARY | 2023-06-23 20:14 | External Medical Summary | Summary of Care ---
Author Name Unknown Organization [facility] Address [address] [place] [address] Phone [phone] Care Team Providers Care Boring Machine Operator Name Role Phone Bernardo Cardozoclaudia Primary Care Provider Encounter Details Date Type Department Care Team Description 02/10/2023 Telephone Gynecology/Obstetrics [facility] [address] [facility] [place] [address] Kylah Ventura, [facility] [address] [facility] [place] [address] Allergies No known active allergiesdocumented as of this encounter (statuses as of 02/10/2023) Medications Medication Sig Dispensed Refills Start Date [...] Additional Information Patient not taking.Reported on 02/09/2023 Aaucgcxfbp-OMSH-Xjw feine 50-300-40 MG Oral Capsule (Fioricet)Indicatio ns:H/O [...] as of this encounter (statuses as of 02/10/2023) Active Problems Problem Noted Date Normal 11/12/2022 History of hemorrhage, curren tly 11/12/2022 Family history of trisomy 18 10/11/2020 Overview: First Baby, delivered at 35w4d. 2022 - low risk Qnatal Migraine 06/13/2019 Estimated Date of Delivery Comme nts Yes 06/23/2023 Based on last me nstrual period of 09/16/2022 documented as of this encounter (statuses as of 02/10/2023) Resolved Problems Problem Noted Date Resolved Date [...] as of this encounter (statuses as of 02/10/2023) Immunizations Name Administration Dates Next Due COVID-19 mRNA, LNP-s, No Pre serve, 2-Dose Series (Drizly) 11/01/2020,10/11/2020 Covid-19, Mrna, Lnp-s, Pf, B ivalent, [...] encounter Miscellaneous Notes * Telephone Encounter - Shirley Xiao RN - 02/10/2023 11:14 AM EDT Patient called and made aware. Patient verbalized understanding. * Telephone Encounter - Shirley Xiao RN - 02/10/2023 11:10 AM EDT ----- Message from Kylah Ventura CNM sent at 02/10/2023 10:30 AM EDT ----- Please let patient know her anatomy scan showed normal growth and anatomy. Thanks! Kylah Ventura CNM documented in this encounter Plan of Treatment Upcoming Encounters Date Type Specialty Care Team Description 03/15/2023 Office Visit Gynecology Obstetrics Aysha Patel CRNP [address] [place] [address] 04/12/2023 Office Visit Gynecology Obstetrics Aysha Ptael CRNP [address] [place] [address] Health Maintenance Due Date Last Done Comments [...] filedocumented as of this encounter Care Teams Boring Machine Operator Relationship Specialty Start Date End Date Bernardo Cardozo DO [address] [place] [address] PCP - General Family Medicine 04/18/20 documented as of this encounter
--- OUTSIDE RECORDS SUMMARY | 2023-06-23 20:14 | External Medical Summary | Summary of Care ---
Author Name Unknown Organization [facility] Address [address] [place] [address] Phone [phone] Care Team Providers Care Route Clerk Name Role Phone Bernardo Cardozoclaudia Primary Care Provider Reason for Visit * Reason Comments Outpatient Testing Encounter Details Date Type Department Care Team Description 04/01/2023 Laboratory Laboratory [address] [place] [address] [facility] [address] [place] [address] Normal in second trimester Allergies No known active allergiesdocumented as [...] Additional Information Patient not taking.Reported on 02/09/2023 Nelghvyvih-JGFI-Wxc feine 50-300-40 MG Oral Capsule (Fioricet)Indicatio ns:H/O [...] Patel CRNP [address] [place] [address] Pending Results Name Type Priority Associated Diagnoses Date /Time 50-G GESTATIONAL GLUCOSE, 1 HOUR Lab Routine Normal in second trimester 04/01/2023 9:55 AM EDT CBC WITH WBC DIFFERENTIAL AND ANEMIA REFLEX WORKUP Lab Routine Normal in second trimester 04/01/2023 9:55 AM EDT SYPHILIS ANTIBODY SCREEN WITH REFLEX TO RPR Lab Routine Normal in second trimester 04/01/2023 9:55 AM EDT ANEMIA CBC Lab Routine Normal in second trimester 04/01/2023 9:55 AM EDT DIFFERENTIAL, AUTOMATED Lab Routine Normal in second trimester 04/01/2023 9:55 AM EDT ANEMIA REFLEX CHEMISTRY HOLD Lab Routine Normal in second trimester 04/01/2023 9:55 AM EDT SYPHILIS ANTIBODY SCREEN Lab Routine Normal in second trimester 04/01/2023 9:55 AM EDT Health Maintenance Due Date Last [...] encounter Visit Diagnoses Diagnosis Normal in second trimester documented in this encounter Care Teams Route Clerk Relationship Specialty Start Date End Date Bernardo Cardozo, [address] [place] [address] PCP - General Family Medicine 04/18/20 documented as of this encounter
--- OUTSIDE RECORDS SUMMARY | 2023-06-23 20:14 | External Medical Summary | Summary of Care ---
Author Name Unknown Organization [facility] Address [address] [place] [place] [place] [address] Phone [phone] Care Team Providers Care Senior Environmental Engineer Name Role Phone Bernardo Cardozoclaudia Primary Care Provider Reason for Visit * Reason Onset Date Comments COVID-19 Screening 01/04/2023 Encounter Details Date Type Department Care Team Description 01/04/2023 Telephone COVID19 Screening [facility] DEPT CLOSED 05/13/21 [address] [facility] [place] [id number], Automated Provider COVID-19 Screening Allergies No known active allergiesdocumented as of this encounter (statuses as of 01/04/2023) Medications Medication Sig Dispensed Refills Start Date [...] for Nausea. 30 Tablet 2 11/25/2022 Active Pazapxdbdf-WKIL-Xbb feine 50-300-40 MG Oral Capsule (Fioricet)Indicatio ns:H/O [...] as of this encounter (statuses as of 01/04/2023) Active Problems Problem Noted Date Normal 11/12/2022 History of hemorrhage, curren tly 11/12/2022 Family history of trisomy 18 10/11/2020 Overview: First Baby, delivered at 35w4d. 2022 - low risk Qnatal Migraine 06/13/2019 Estimated Date of Delivery Comme nts Yes 06/23/2023 Based on last me nstrual period of 09/16/2022 documented as of this encounter (statuses as of 01/04/2023) Resolved Problems Problem Noted Date Resolved Date [...] as of this encounter (statuses as of 01/04/2023) Immunizations Name Administration Dates Next Due COVID-19 mRNA, LNP-s, No Pre serve, 2-Dose Series (Playrcart) 11/01/2020,10/11/2020 Covid-19, Mrna, Lnp-s, Pf, B ivalent, 30 Mcg, IM, 12 yrs and above (Playrcart) 05/19/2022 PPD 07/18/2019 Seasonal Influenza, Quadriva lent, [...] Notes * Telephone Encounter - Kathy Taveras [facility] - 01/04/2023 10:12 PM EDT Outreach Attempts IVR Call Jan 04 2023 5:05PM Voicemail - Voicemail IVR Message: Stephon Nielsen. This is [facility] calling to let you know you have test results available. You can access this result in your Ever[employer] account under 'Test & Lab Results'. If you are not enrolled in Ever[employer], you can create an account by going to [email or web address]. You can also call back at [phone] or we will attempt to reach you later tomorrow. documented in this encounter Plan of Treatment Upcoming Encounters Date Type Specialty Care Team Description 01/11/2023 Office Visit Gynecology Obstetrics Kylah Ventura CNM [address] [facility] [place] [address] 02/08/2023 Office Visit Gynecology Obstetrics Aysha Patel CRNP [address] [place] [address] 03/15/2023 Office Visit Gynecology Obstetrics Aysha Patel CRNP [address] [place] [address] Health Maintenance Due Date Last Done Comments [...] as of this encounter Care Teams Senior Environmental Engineer Relationship Specialty Start Date End Date Bernardo Cardozo DO [address] [place] [address] PCP - General Family Medicine 04/18/20 documented as of this encounter
--- OUTSIDE RECORDS SUMMARY | 2023-06-23 20:14 | External Medical Summary | Summary of Care ---
Author Name Unknown Organization [facility] Address [address] [place] [address] Phone [phone] Care Team Providers Care Associate Professor Of Pathology Name Role Phone Cas Bernardo Vásquezclaudia Primary Care Provider Reason for Visit * Reason Comments Return Visit Encounter Details Date Type Department Care Team Description 03/08/2023 Office Visit Gynecology/Obstetrics [address] [place] [address] Aysha Patel CRNP [address] [place] [address] Normal in second trimester*; Family history of trisomy 18; History of hemorrhage, currently Allergies No known active allergiesdocumented as of this encounter (statuses as of 03/08/2023) Medications Medication Sig Dispensed Refills Start Date [...] Additional Information Patient not taking.Reported on 02/09/2023 Lpbrwfxcij-HHRN-Jjz feine 50-300-40 MG Oral Capsule (Fioricet)Indicatio ns:H/O [...] as of this encounter (statuses as of 03/08/2023) Active Problems Problem Noted Date Normal 11/12/2022 History of hemorrhage, curren tly 11/12/2022 Family history of trisomy 18 10/11/2020 Overview: First Baby, delivered at 35w4d. 2022 - low risk Qnatal Migraine 06/13/2019 Estimated Date of Delivery Comme nts Yes 06/23/2023 Based on last me nstrual period of 09/16/2022 documented as of this encounter (statuses as of 03/08/2023) Resolved Problems Problem Noted Date Resolved Date [...] as of this encounter (statuses as of 03/08/2023) Immunizations Name Administration Dates Next Due COVID-19 mRNA, LNP-s, No Pre serve, 2-Dose Series (Proposify) 11/01/2020,10/11/2020 Covid-19, Mrna, Lnp-s, Pf, B ivalent, [...] Sign Reading Time Taken Comments Blood Pressure 102/58 03/08/2023 12:00 PM EDT Pulse - - Temperature - - Respiratory Rate - - Oxygen Saturation - - Inhaled Oxygen Concentration - - Weight 73.5 kg (162 lb) 03/08/2023 12:00 PM EDT Height 172.7 cm (5' 8") 03/08/2023 12:00 PM EDT Body Mass Index 24.63 03/08/2023 12:00 PM EDT documented in this encounter Progress Notes * RHODA Segal - 03/08/2023 12:31 PM EDT 24w5d No concerns. Baby moving well. No contractions, bleeding, or LOF. Wearing support hose for varicoseveins. To schedule glucola at 28w. RHODA Segal documented in this encounter Nursing Notes * Cary Dillon LPN - 03/08/2023 12:02 PM EDT 24w5d documented in this encounter Plan of Treatment Upcoming Encounters Date Type Specialty Care Team Description 04/12/2023 Office Visit Gynecology Obstetrics Aysha Patel CRNP [address] [facility] [place] [address] Scheduled Orders Name Type Priority Associated Diagnoses Orde r Schedule 50-G GESTATIONAL GLUCOSE, 1 HOUR Lab Routine Normal in second trimester Expected: 03/22/2023 (Approximate), Expires: 03/08/2024 CBC WITH WBC DIFFERENTIAL AND ANEMIA REFLEX WORKUP Lab Routine Normal in second trimester Expected: 03/22/2023 (Approximate), Expires: 03/08/2024 SYPHILIS ANTIBODY SCREEN WITH REFLEX TO RPR Lab Routine Normal in second trimester Expected: 03/22/2023 (Approximate), Expires: 03/08/2024 Health Maintenance Due Date Last Done Comments [...] documented in this encounter Care Teams Associate Professor Of Pathology Relationship Specialty Start Date End Date Bernardo Cardozo DO [address] [place] [address] PCP - General Family Medicine 04/18/20 documented as of this encounter
--- OUTSIDE RECORDS SUMMARY | 2023-06-23 20:15 | External Medical Summary | Summary of Care ---
Author Name Unknown Organization [facility] Address [address] [place] [address] Phone [phone] Care Team Providers Care Advertising Material Distributor Name Role Phone Bernardo Cardozo DO Primary Care Provider Reason for Visit * Reason Onset Date Comments Sore Throat 01/01/2023 Encounter Details Date Type Department Care Team Description 01/01/[address] [place] [address] Bassam Hood MD [address] [place] [address] [place] [phone] Sore Throat Allergies No known active allergiesdocumented as of [...] for Nausea. 30 Tablet 2 11/25/2022 Active Giuskysqvy-HVBH-Hxn feine 50-300-40 MG Oral Capsule (Fioricet)Indicatio ns:H/O [...] mRNA, LNP-s, No Pre serve, 2-Dose Series (Doppelgames) 11/01/2020,10/11/2020 Covid-19, Mrna, Lnp-s, Pf, B ivalent, [...] encounter Miscellaneous Notes * Telephone Encounter - Bassam Hood MD - 01/01/2023 8:25 AM EDT abx sent and order signed * Telephone Encounter - Neisha Dunham MED ASSIST - 01/01/2023 7:31 AM EDT Needed swabbed for employee health. Please sign order. Patient tested positive for strep sore throat. Can you send amoxicillin? documented in this encounter Plan of Treatment Upcoming Encounters Date Type Specialty Care Team Description 01/01/2023 Nurse Only Ancillary Nurse Kasandra [address] [place] [address] 01/01/2023 Telemedicine Family Medicine Rajinder Alonso DO [address] [place] [address] 01/11/2023 Office Visit Gynecology Obstetrics Kylah Ventura CNM [address] [place] [address] 02/08/2023 Office Visit Gynecology Obstetrics Aysha Patel CRNP [address] [place] [address] 03/15/2023 Office Visit Gynecology Obstetrics Aysha Patel CRNP [address] [place] [address] Scheduled Orders Name Type Priority Associated Diagnoses Orde r Schedule SARS-COV-2 (COVID-19), NAAT Lab Routine Strep sore throat Expected: 01/01/2023, Expires: 01/02/2024 Health Maintenance Due Date Last Done Comments [...] Strep sore throat- Primary Streptococcal sore throat Strep sore throat Streptococcal sore throat documented in this encounter Care Teams Advertising Material Distributor Relationship Specialty Start Date End Date Bernardo Cardozo DO [address] [place] [address] PCP - General Family Medicine 04/18/20 documented as of this encounter
--- OUTSIDE RECORDS SUMMARY | 2023-06-23 20:15 | External Medical Summary ---
Author Name Unknown Address Unknown Organization [id number]:[facility] - [address] [facility] [address] Laboratory Report Ordering Provider Test Date Status KENDALL DARBY 01/01/2023 08:23:00 Miladys l For PreSurgery, Procedure, O B Admit, or Surveillance testing - Nasal Turbinate source preferred.

For Symptomatic testing - Nasopharyngeal source preferred.
null Observation Date Value Abnormality Reference (Units ) Status SARS Coronavirus 2 01/01/2023 08:23:00 Negative N egative Final 2018 Novel Coronavirus not d etected.

This automated test was developed and its performance characteristics determined by [employer]. It has not been cleared or approved by the U.S. Food and Drug Administration (FDA). FDA does not require this test to go thru premarket FDA review. This test is used for clinical purposes. It should not be regarded as investigational or for research. This laboratory is certified under the Clinical Laboratory Improvement Amendments (CLIA) as qualified to perform high complexity clinical laboratory testing.

This test is a nucleic acid amplification test (NAAT), a reverse transcriptase polymerase chain reaction (RT-PCR) test, or a Centers for Disease Control-acceptable equivalent. The test is performed in a high complexity Clinical Laboratory Improvement Amendments-(CLIA) certified laboratory. The test is acceptable for SARS-CoV-2 diagnosis, surveillance, and travel within the [place] and to most countries. Please check with local testing authorities about requirements before travel. Performing Location [facility] [address] [facility] [address]
--- NOTE | 2023-06-23 20:43 | Obstetrical Progress Note ---
Date of Service June 23, 2023 Assessment & Plan (1) : Plan: Pt doing well No complaints Epidural analgesia placed FHR; CAT1 Ctx 1-4mins VE: 4/60/-1 AROM with amniohook- clear Admission and Anticipated Discharge Date Admission Date: June 23, 2023 Results & Data Vital Signs (Past 12 Hours) Vital Signs Temp Pulse Resp BP Pulse Ox O2 Del Method 06/23/23 20:36 80 96 06/23/23 20:31 79 96 06/23/23 20:26 97 06/23/23 20:26 76 06/23/23 20:26 75 111/55 L 06/23/23 20:21 74 97 06/23/23 20:16 73 96 06/23/23 20:11 76 102/57 L 96 06/23/23 20:06 75 96 06/23/23 20:01 80 97 06/23/23 20:00 18 06/23/23 20:00 18 06/23/23 19:56 98 06/23/23 19:56 82 06/23/23 19:56 83 98/52 L 06/23/23 19:51 85 97 06/23/23 19:46 91 H 97 06/23/23 19:41 83 97 06/23/23 19:40 86 106/50 L 06/23/23 19:38 90 102/53 L 06/23/23 19:36 88 106/51 L 97 06/23/23 19:34 84 106/62 06/23/23 19:32 96 H 126/76 06/23/23 19:31 87 98 06/23/23 19:30 85 125/78 06/23/23 19:28 86 124/78 06/23/23 19:26 92 H 100 06/23/23 19:21 84 98 06/23/23 19:16 84 99 06/23/23 19:15 18 06/23/23 19:15 36.9 C 18 06/23/23 19:12 18 06/23/23 19:12 Room Air 06/23/23 19:11 79 98 06/23/23 19:09 81 118/67 06/23/23 19:06 82 97 06/23/23 19:01 92 H 97 06/23/23 18:56 89 98 06/23/23 18:51 88 97 06/23/23 14:50 86 127/76 06/23/23 14:38 37.0 C 86 16 127/76
[2023-06-24] MEDS ORDERED: BENZOCAINE 20% SPRY 85 APPLN/85 GM CAN EXT PRN (02:47)
[2023-06-24] MEDS ORDERED: bisacodyL 10 MG SUPP PR PRN (02:47)
[2023-06-24] MEDS ORDERED: HYDROCORTISONE ACETATE 25 MG SUPP PR PRN (02:47)
[2023-06-24] MEDS ORDERED: miSOPROStoL 200 MCG TAB PR ONE (02:47)
[2023-06-24] MEDS ORDERED: OXYTOCIN 30 UNITS/NSS 30 UNITS/500 ML BAG IV PRN (02:47)
[2023-06-24] MEDS ORDERED: METHYLERGONOVINE MALEATE 0.2 MG/ML AMP IM ONE (02:47)
[2023-06-24] MEDS ORDERED: DIPHTHERIA/TETANUS/PERTUSSIS Vaccine (Tdap, Age 7+yrs) 0.5mL SYR/VL IM ONE (02:47)
--- NOTE | 2023-06-24 02:52 | Delivery Summary ---
Vaginal Delivery Summary Date of Service June 24, 2023 Vaginal Delivery Summary DELIVERY NOTE Patient delivered a live male in left occiput anterior presentation there was no nuchal cord which was easily reduced. was delivered and placed on mother's abdomen. Delayed cord clamping was performed. Cord blood is obtained Cord gasses are obtained Meconium is present Placenta is spontaneously delivered. Placenta appears grossly normal and has 3 vessel cord Inspection of the perineum showed no laceration. Rectal exam post repair showed good sphincter tone no sutures palpated in the rectum. Estimated blood loss is 450 cc per Infants weight and scores are in the pediatric record Mother and baby are stable in in the recovery
[2023-06-24 03:00] LABS: Base Excess Cord Venous Blood -3.1 mEq/L (-7.7-1.9); Cord Venous Blood HCO3 23 mmol/L (18.4-26.8); Cord Venous Blood PCO2 45 mmHg (30.4-57.2); Cord Venous Blood PO2 25 mmHg (14.1-43.3); Cord Venous Blood pH 7.32 (7.20-7.44); O2 Saturation Cord Venous Bld < 60.0 % (<68)
[2023-06-24 03:01] LABS: Base Excess Cord Arterial Bld -4.8 mEq/L (-9-1.8); CO2 Cord Arterial Blood 58 mmHg (39.1-73.5); HCO3 Cord Arterial Blood 24 mmol/L (19.7-28.5); Oxygen Sat Cord Arterial Blood < 60.0 % (<60); PO2 Cord Arterial Blood 22 mmHg (4.1-31.7); pH Cord Arterial Blood 7.22 (7.1-7.38)
--- NOTE | 2023-06-24 04:37 | Anesthesia Procedure Note ---
Date of Service June 24, 2023 Anesthesia Post Epidural Note Vital Signs Vital Signs: Temp Pulse Resp BP Pulse Ox O2 Del Method 98.4 F 81 18 95/54 L 98 Room Air 06/24/23 02:55 06/24/23 04:27 06/24/23 03:40 06/24/23 04:27 06/24/23 02:06 06/23/23 19:12 Notes Mental Status: alert / awake / arousable and participated in evaluation Nausea / Vomiting: adequately controlled Pain: adequately controlled Airway Patency, RR, SpO2: stable & adequate BP & HR: stable & adequate Hydration State: stable & adequate Neuraxial Anesthesia: was administered and sensory block is resolving Anesthetic Complications: no major complications apparent and Pt Satisfied with anesthetic care Epidural: Removed without complications and With tip intact
[2023-06-24] MEDS: ACETAMINOPHEN 325 MG TAB PO PRN ×4 (04:45→21:09)
[2023-06-24] MEDS: DOCUSATE SODIUM 100 MG CAP PO SCH ×2 (08:56→20:48)
[2023-06-24] MEDS: PRENATAL VITAMIN 1 TAB PO SCH (08:56)
[2023-06-24] MEDS: IBUPROFEN 600 MG TAB PO PRN ×3 (10:36→22:38)
[2023-06-25] MEDS: ACETAMINOPHEN 325 MG TAB PO PRN (03:02)
[2023-06-25] MEDS: IBUPROFEN 600 MG TAB PO PRN ×2 (04:56→08:39)
[2023-06-25 07:35] LABS: Hematocrit (blood only) 35.3 % (37.0-47.0); Hemoglobin 12.5 g/dl (12.0-16.0); Mean Corpuscular Hemoglobin 31.5 pg (25.0-34.0); Mean Corpuscular Hgb Conc 35.4 g/dL (32.0-36.0); Mean Corpuscular Volume 88.9 fL (80.0-100.0); Platelet Count 197 K/uL (130-400); RDW Coefficient of Variation 12.7 % (11.5-14.5); RDW Standard Deviation 41.3 fL (36.4-46.3); Red Blood Count 3.97 M/uL (4.20-5.40); White Blood Count 11.69 K/ul (4.8-10.8)
--- NOTE | 2023-06-25 08:05 | Obstetrical Progress Note ---
Date of Service June 25, 2023 Assessment & Plan Admission and Anticipated Discharge Date Admission Date: June 23, 2023 Subjective Patient is seen and examined. She feels well, no complaints. Ambulating without dizziness Voiding without difficulty Tolerating regular diet with out N&V Bleeding is minimal No fever/ chills/ CP/ SOB/ N&V/ Leg pain Breast feeding without problems Vital Signs Temp Pulse Resp BP Pulse Ox O2 Del Method 06/24/23 23:45 36.3 C L 60 16 106/64 94 Room Air 06/24/23 20:45 36.4 C L 72 20 113/74 97 Room Air Lab Results 06/23/23 06/24/23 06/24/23 Range/Units 18:07 01:56 01:56 WBC 11.92 H (4.8-10.8) K/ul RBC 4.13 L (4.20-5.40) M/uL Hgb 13.2 (12.0-16.0) g/dl Hct 37.0 (37.0-47.0) % MCV 89.6 (80.0-100.0) fL MCH 32.0 (25.0-34.0) pg MCHC 35.7 (32.0-36.0) g/dL RDW Std Deviation 41.0 (36.4-46.3) fL RDW Coeff of Shiv 12.4 (11.5-14.5) % Plt Count 230 (130-400) K/uL MPV 8.9 L (9.4-12.4) fL Cord ABG pH 7.22 (7.1-7.38) Cord ABG pCO2 58 (39.1-73.5) mmHg Cord ABG pO2 22 (4.1-31.7) mmHg Cord ABG HCO3 24 (19.7-28.5) mmol/L Cord ABG Base Excess -4.8 (-9-1.8) mEq/L Cord ABG O2 Sat < 60.0 (<60) % Cord VBG pH 7.32 (7.20-7.44) Cord VBG pCO2 45 (30.4-57.2) mmHg Cord VBG pO2 25 (14.1-43.3) mmHg Cord VBG HCO3 23 (18.4-26.8) mmol/L Cord VBG Base Excess -3.1 (-7.7-1.9) mEq/L Cord VBG O2 Sat < 60.0 (<68) % Blood Gas Comments SMITH SMITH Blood Type A Positive Antibody Screen NEGATIVE 06/25/23 Range/Units 07:14 WBC 11.69 H (4.8-10.8) K/ul RBC 3.97 L (4.20-5.40) M/uL Hgb 12.5 (12.0-16.0) g/dl Hct 35.3 L (37.0-47.0) % MCV 88.9 (80.0-100.0) fL MCH 31.5 (25.0-34.0) pg MCHC 35.4 (32.0-36.0) g/dL RDW Std Deviation 41.3 (36.4-46.3) fL RDW Coeff of Shiv 12.7 (11.5-14.5) % Plt Count 197 (130-400) K/uL MPV 9.0 L (9.4-12.4) fL Cord ABG pH (7.1-7.38) Cord ABG pCO2 (39.1-73.5) mmHg Cord ABG pO2 (4.1-31.7) mmHg Cord ABG HCO3 (19.7-28.5) mmol/L Cord ABG Base Excess (-9-1.8) mEq/L Cord ABG O2 Sat (<60) % Cord VBG pH (7.20-7.44) Cord VBG pCO2 (30.4-57.2) mmHg Cord VBG pO2 (14.1-43.3) mmHg Cord VBG HCO3 (18.4-26.8) mmol/L Cord VBG Base Excess (-7.7-1.9) mEq/L Cord VBG O2 Sat (<68) % Blood Gas Comments Blood Type Antibody Screen PE: General: Alert, orientedx3, NAD Abd: soft, NT, fundus firm, below Umbilicus Perineum intact, Lochia rubra minimal Ext; NT, no edema AP: 32 yo s/p , ppd# 1 VSS Afebrile doing well Continue routine care All questions were answered desires d/c today D/C home f/u in office Results & Data Vital Signs (Past 12 Hours) Vital Signs Temp Pulse Resp BP Pulse Ox O2 Del Method 06/24/23 23:45 36.3 C L 60 16 106/64 94 Room Air 06/24/23 20:45 36.4 C L 72 20 113/74 97 Room Air
[2023-06-25] MEDS: PRENATAL VITAMIN 1 TAB PO SCH (08:39)
[2023-06-25] MEDS: DOCUSATE SODIUM 100 MG CAP PO SCH (08:39)
[2023-06-25] MEDS ORDERED: bisacodyL 5 MG TABEC PO SCH (20:00)
== END 2023-06-25 12:15 | disposition home or self-care (01) | DRG 807 ==
LOC: OPB 14:30 → 4S1 14:32 → 4E2 06-24 04:45